=== PATIENT | female | born 1970 | race Caucasian/White ===

== ENCOUNTER 2020-06-21 09:09 | Outpatient (REF) | payer OTHER, SELFPAY ==
[2020-06-21 10:29] LABS: HBS Num1 7.41 mIU/mL (0-7.99); HBc Num1 0.05 S/CO (0.00-0.79); Hepatitis B Core Antibody Nonreactive (Nonreactive); ~Hepatitis B Surface Antibody NONREACTIVE (Nonreactive)
[2020-06-21 10:33] LABS: HBsAGNum1 0.16 S/CO (0.00-0.99); Hepatitis B Surface Antigen Negative (Negative)
[2020-06-22 09:51] LABS: Rubella IgG Antibody 3.76 Index
== END 2020-06-21 09:10 | disposition home or self-care (01) ==
LOC: HO.LAB 09:09
PROVIDERS: PCP Internal Medicine; Visit Provider Internal Medicine
DX: Z28.3 Underimmunization status (principal); Z11.1 Encounter for screening for respiratory tuberculosis
CPT/HCPCS: 36415; 86704; 86706; 86735; 86762; 86765; 86787; 87340

== ENCOUNTER 2020-06-21 09:31 | Outpatient (REF) | payer OTHER, SELFPAY ==
[2020-06-21 10:19] LABS: COVID-19 Test Negative (Negative)
== END 2020-06-21 09:32 | disposition home or self-care (01) ==
LOC: HO.LAB 09:31
PROVIDERS: Visit Provider Internal Medicine
DX: Z20.822 Contact with and (suspected) exposure to COVID-19 (principal)
CPT/HCPCS: 36415; 87635; C9803

== ENCOUNTER 2020-10-10 13:59 | Outpatient (REF) | payer OTHER, SELFPAY ==
[2020-10-10 14:43] LABS: MANUAL DIFF FLAG NO
[2020-10-10 14:50] LABS: Basophils Percent Auto 0.3 % (0-2); Eosinophils Absolute Auto 0.2 X10*3/uL (0.0-0.4); Eosinophils Percent Auto 1.5 % (0-4); Hematocrit 42.2 % (37-47); Hemoglobin 14.3 g/dl (12.0-16.0); Imm Gran Abs Auto 0.04 X10*3/uL (0.00-0.03); Imm Gran Pct Auto 0.3 % (0.0-0.4); Lymphocytes Absolute Auto 2.7 X10*3/uL (1.2-4.9); Lymphocytes Percent Auto 23.3 % (20-40); Mean Corpuscular HGB Conc 33.9 g/dl (31.0-35.0); Mean Corpuscular Hemoglobin 30.8 pg (27.0-33.0); Mean Corpuscular Volume 90.9 fL (80-98); Mean Platelet Volume 10.9 fL (9.4-12.3); Monocytes Absolute Auto 0.7 X10*3/uL (0.1-1.2); Neutrophils Percent Auto 68.6 % (45-73); Platelet Count 328 X10*3/uL (160-400); Red Blood Count 4.64 X10*6/uL (4.20-5.50); White Blood Count 11.7 X10*3/uL (4.8-10.8)
[2020-10-10 15:17] LABS: Iron 76 mcg/dL (30-160); Percent Iron Saturation 21 % (15-50); Total Iron Binding Capacity 366 mcg/dL (228-428); Unsaturated Iron Binding 290 ug/dL
== END 2020-10-10 14:00 | disposition home or self-care (01) ==
LOC: HO.LAB 13:59
PROVIDERS: PCP Internal Medicine; Visit Provider Internal Medicine
DX: D64.9 Anemia, unspecified (principal)
CPT/HCPCS: 36415; 83540; 85025

== ENCOUNTER 2021-02-12 14:15 | Outpatient (REF) | payer OTHER, SELFPAY | END 2021-02-12 14:16 | disposition home or self-care (01) | LOC: HO.LAB 14:15 | PROVIDERS: Visit Provider Internal Medicine | DX: Z13.89 Encounter for screening for other disorder (principal) ==

== ENCOUNTER 2021-06-20 09:53 | Outpatient (REF) | payer OTHER, SELFPAY ==
[2021-06-20 10:15] LABS: MANUAL DIFF FLAG NO
[2021-06-20 10:43] LABS: Basophils Absolute Auto 0.1 X10*3/uL (0.0-0.2); Basophils Percent Auto 0.5 % (0-2); Eosinophils Absolute Auto 0.4 X10*3/uL (0.0-0.4); Hematocrit 42.3 % (37.0-47.0); Hemoglobin 14.2 g/dl (12.0-16.0); Imm Gran Abs Auto 0.03 X10*3/uL (0.00-0.03); Imm Gran Pct Auto 0.3 % (0.0-0.4); Lymphocytes Absolute Auto 2.3 X10*3/uL (1.2-4.9); Lymphocytes Percent Auto 24.2 % (20-40); Mean Corpuscular HGB Conc 33.6 g/dl (31.0-35.0); Mean Corpuscular Hemoglobin 30.6 pg (27.0-33.0); Mean Corpuscular Volume 91.2 fL (80.0-98.0); Mean Platelet Volume 11.7 fL (9.4-12.3); Monocytes Absolute Auto 0.7 X10*3/uL (0.1-1.2); Monocytes Percent Auto 7.8 % (2-11); Neutrophils Percent Auto 63.2 % (45-73); Platelet Count 290 X10*3/uL (160-400); Red Blood Count 4.64 X10*6/uL (4.20-5.50); Red Cell Distribution Width 12.9 % (11.0-16.0); White Blood Count 9.5 X10*3/uL (4.8-10.8)
[2021-06-20 11:07] LABS: Alanine Aminotransferase 59 U/L (0-31); Albumin Level 4.4 g/dL (3.5-5.0); Alkaline Phosphatase 85 U/L (39-117); Anion Gap 11 (12-20); Aspartate Amino Transferase 53 U/L (5-31); Bilirubin Total 0.6 mg/dL (0.0-1.0); Blood Urea Nitrogen 9 mg/dL (9-16); Calcium 9.9 mg/dL (8.4-10.2); Carbon Dioxide 28 mmol/L (22-29); Chloride 107 mmol/L (96-108); Cholesterol 190 mg/dL; Estimated Glomerular Filt Rate > 60; Glucose Fasting 112 mg/dL (60-99); HDL Cholesterol 40 mg/dL; LDL Cholesterol Calculated 102 mg/dl; Potassium 4.1 mmol/L (3.3-5.1); Rheumatoid Factor < 15.0 IU/mL (<15.0); Sodium 142 mmol/L (135-145); Triglycerides 241 mg/dL
[2021-06-20 11:26] LABS: Erythrocyte Sedimentation Rate 5 MM/HR (0-20)
[2021-06-22 18:31] LABS: Cyclic Citrullinated Peptide <16 UNITS
== END 2021-06-20 09:54 | disposition home or self-care (01) ==
LOC: HO.LAB 09:53
PROVIDERS: PCP Internal Medicine; Visit Provider Internal Medicine
DX: Z00.00 Encounter for general adult medical examination without abnormal findings (principal); M25.50 Pain in unspecified joint; J45.20 Mild intermittent asthma, uncomplicated; E55.9 Vitamin D deficiency, unspecified
CPT/HCPCS: 36415; 80053; 80061; 82306; 85025; 85652; 86200; 86431

== ENCOUNTER 2021-06-28 10:11 | Outpatient (REF) | payer OTHER, SELFPAY ==
--- NOTE | ~2021-06-28 | MM_ITS ---
EXAMINATION: MM SCREENING DIGITAL BREAST TOMOSYNTHESIS, BILATERAL CLINICAL INFORMATION: Screening. Asymptomatic. The lifetime risk of breast cancer based on the Tyrer-Cuzick Model is 6.3%. COMPARISON: Mammography: February 28, 2015 and December 03, 2013 TECHNIQUE: Digital breast tomosynthesis is performed in both the craniocaudal and mediolateral oblique views along with computer-aided detection (CAD). Synthesized 2D images are generated from the tomosynthesis. FINDINGS: There are scattered areas of fibroglandular density (ACR BI-RADS breast composition Category b). There are no new significant masses, abnormal calcifications, or other abnormalities. MM/MM tomosynthesis screening BI IMPRESSION: There are no significant changes from prior study. ASSESSMENT: BI-RADS 1: Negative RECOMMENDATION: Routine annual mammography screening. This patient's information was entered into a reminder system with a target due date for their next mammogram.
== END 2021-06-28 10:12 | disposition home or self-care (01) ==
LOC: HO.MAMMO 10:11
PROVIDERS: PCP Internal Medicine; Visit Provider Internal Medicine
DX: Z12.31 Encounter for screening mammogram for malignant neoplasm of breast (principal)
CPT/HCPCS: 77063; 77067

== ENCOUNTER 2021-07-08 10:37 | Emergency (ER) | payer OTHER, SELFPAY ==
--- NOTE | ~2021-07-08 | XR_ITS ---
EXAMINATION: XR CHEST CLINICAL INFORMATION: Congestion COMPARISON: Previous chest x-ray most recent February 2019 TECHNIQUE: 2 views of the chest were obtained. FINDINGS: No significant abnormality is noted involving the heart, lungs, mediastinum, bony thorax or soft tissues. XR/XR chest 2V IMPRESSION: Unremarkable examination.
[2021-07-08 10:50] VITALS: BP 137/88; PULSE 95; RESP 19; TEMP 36.6; O2SAT 95; BMI 26.2
[2021-07-08 15:12] VITALS: BP 166/104; PULSE 87; RESP 18; TEMP 36.9; O2SAT 96
--- NOTE | 2021-07-08 15:57 | ED_ITS ---
HPI - Allergic Reaction General Chief complaint: General Medical Stated complaint: quest allergic reaction lips face swelling Time Seen by Provider: 07/08/21 12:59 Source: patient Mode of arrival: ambulatory Limitations: no limitations History of Present Illness MD complaint: other ( lip swelling) Onset (ago): day(s) ( since last night) Exposure: unknown Symptoms: lip swelling Severity: mild Treatment prior to arrival: none Previous Allergic Reaction History: none Related Data Previous Rx's Medication Instructions Recorded albuterol sulfate 90 mcg/actuation 2 inh INHALATION QID #6.7 g 05/21/21 aerosol inhaler loratadine 10 mg tablet (Allergy 10 mg PO DAILY 90 Days #90 tab 05/21/21 Relief (loratadine)) lorazepam 0.5 mg tablet 0.5 mg PO DAILY PRN 28 Days #28 tab 05/21/21 omeprazole 20 mg capsule,delayed 20 mg PO DAILY 90 Days #90 cap 05/21/21 release cholecalciferol (vitamin D3) 25 25 mcg PO DAILY 90 Days #90 cap 06/26/21 mcg (1,000 unit) capsule diphenhydramine HCl 25 mg tablet 50 mg PO TID PRN #10 tab 07/08/21 (Benadryl Allergy) famotidine 20 mg tablet (Pepcid) 20 mg PO BID #14 tab 07/08/21 prednisone 20 mg tablet 40 mg PO DAILY 5 Days #10 tab 07/08/21 Allergies Allergy/AdvReac Type Severity Reaction Status Date / Time azithromycin [AZITHROMYCIN] Allergy Unknown RASH, LIP Verified 05/21/21 12:35 SWELLING Review of Systems Review of Systems: Constitutional : No Fever, No Chills , no body aches, no recent illness Head/Face: + lower lip swelling, No additional facial swelling, No facial redness ENT/Mouth : No oral/throat swelling, No Hoarseness, No Swallowing Difficulty Eyes: No Eye Pain, No Swelling, No Redness Cardiovascular : No Chest Pain, No SOB, No palpitations Respiratory : No Cough, No Sputum, No Wheezing, No Smoke Exposure, No Dyspnea Gastrointestinal : No Nausea, No Vomiting, No Diarrhea, No abdominal Pain Genitourinary : No Dysuria, No Urinary Frequency, No Hematuria Musculoskeletal : No joint pain, No Myalgias, No Joint Swelling Skin : No Skin Lesions, positive rash Neuro : No Weakness, No Numbness, No Headache, No dizziness, No tingling Psych : No Anxiety/Panic, No Depression Heme/Lymph: No Bruising, No Lymphadenopathy Endocrine : No Polyuria, No Polydipsia Denies changes in lotions or detergents. Denies new medications or any changes in medications. Denies drainage from rash. Denies any recent sick contacts or recent travel. Yes all other systems are reviewed and are negative PMFSH Past Medical History Attestation statement: The following information was validated with the patient. Medical History Chronic GERD Immunizations incomplete Left shoulder pain Lumbar pain Mild intermittent asthma, uncomplicated Physical exam Polyarthralgia Right shoulder pain Surgical History History of hysterectomy Family History Family History Mother No problems noted. Father No problems noted. Social History Social History Housing: House Alcohol intake: current Alcohol intake frequency: holidays/special occasions only Alcohol type: beer Patient Tobacco Use Status: Current everyday Tobacco user Tobacco use type: Cigarette Cigarettes Per Day: 3 e-Cigarette/Vaping Use: Never Used Second Hand Smoke Exposure: No Advance Directives: No Advance Directives Information Provided: No service: No Current occupational status: employed Current occupational exposures/hazards: No Physical Exam ED Vital Signs: Vital Signs - 24 hr 07/08/21 10:50 07/08/21 15:12 Temperature 98 F 98.4 F Pulse Rate 95 87 Respiratory Rate 19 18 Blood Pressure 137/88 166/104 H Pulse Oximetry 95 96 BMI result Body Mass Index 26.2 vital signs have been reviewed as normal and appeared to be correct. Blood pressure 166/104. Heart rate normal. Respiration rate normal. Temperature normal. Oxygen saturation normal. Appearance: Alert. Oriented X3. No acute distress. Head: Normal external exam. Normocephalic. Atraumatic. Eyes: PERRLA. EOMI. Conjunctiva and sclera normal. Eyelids normal. ENT: Pharynx normal. Uvula midline. Moist mucous membranes. No lesions/ulcerations or masses noted on the tongue. Although patient does have swelling to the lower lip and she does appear to have a dried rash to the lower lip no actual pustules at this time or drainage or foreign bodies. Stensen's and [place]le[place]'s ducts are within normal limits Normal voice. No trismus noted. No drooling noted. No muffled voice noted. Neck: Normal inspection. Neck supple. FROM. + mandibular adenopathy. Thyroid Normal. No tracheal deviation noted. No crepitus is noted. No meningeal sig ns. No neck mass noted. No signs of trauma noted. CVS: Normal heart rate and rhythm. Heart sound normal. Pulses normal throughout. No murmurs/rales/gallops. Respiratory: No respiratory distress. Painless inspiration. Breath sounds normal. No wheezes/rales/rhonchi noted. Chest nontender. No crepitus is noted. No signs of trauma noted. No accessory muscle usage noted or decreased air movement noted. No signs of trauma. Back: Full range of motion noted. Nontender. Skin: Skin warm and dry. Normal skin color. Normal skin turgor. No rashes/lesions/lacerations noted. Extremities:Extremities exhibit normal range of motion and nontender. Neuro: Oriented X 3. No motor deficit. No sensory deficit. Reflexes normal. Normal steady gait. No focal neuro deficits noted. CN's II-XII intact bilaterally? Vascular: + radial pulses/+ 2 distal pedal pulses/+2 dorsalis pedis b/l. Normal cap refill. No cyanosis noted to upper extremity nails and lower extremity toes nails. Course Course Course Narrative: 50-year-old female with lip swelling since last night with mandibular/cervical lymphadenopathy reports that she was diagnosed with COVID approximately 1 week ago. Denies any new substances medications diets foods anything that she can recall including lotions detergents. she denies any recent oral intercourse any thoughts of STDs. Although on exam it appears that she has a rash possibly oral herpes although patient does not agree with this therefore I swabbed her and will treat for possible allergic reaction / angioedema although I explained to her that it could possibly be herpes she does not want to treatment after I ordered it therefore we will call her in a week if positive results I explained to her if negative then she can take the steroids in the Benadryl and the Pepcid and instructions return if any new or worsening symptoms to follow up with primary care provider although no additional labs or imaging indicated as her vital signs are stable no trismus/ drooling she is tolerating secretions well. No other signs of angioedema. No wheezing. No abdominal pain or cramping. Patient understands agrees with this plan. MDM - Allergic Reaction Medical Records Attestation: I reviewed the patient's medical records. Lab Data Attestation: I reviewed the patient's lab results. Discharge Plan Discharge Clinical Impression: Lip swelling, Rash on lips Patient Disposition: Home, Self-Care Additional Instructions: You have pending lab results if any are positive you will be contacted within a week. Return if any new or worsening symptoms. Follow up with her primary care provider. Prescriptions: New prednisone 20 mg tablet 40 mg PO DAILY 5 Days Qty: 10 0RF diphenhydramine HCl [Benadryl Allergy] 25 mg tablet 50 mg PO TID PRN (Reason: allergic reaction) Qty: 10 0RF famotidine [Pepcid] 20 mg tablet 20 mg PO BID Qty: 14 0RF No Action loratadine [Allergy Relief (loratadine)] 10 mg tablet 10 mg PO DAILY 90 Days Qty: 90 1RF cholecalciferol (vitamin D3) 25 mcg (1,000 unit) capsule 25 mcg PO DAILY 90 Days Qty: 90 1RF albuterol sulfate 90 mcg/actuation HFA aerosol inhaler 2 inh inhalation QID Qty: 6.7 1RF lorazepam 0.5 mg tablet 0.5 mg PO DAILY PRN (Reason: anxiety) 28 Days Qty: 28 0RF omeprazole 20 mg capsule,delayed release(DR/EC) 20 mg PO DAILY 90 Days Qty: 90 3RF Referrals: Rebeca Houston MD [Primary Care Provider] - 2 days
[2021-07-08] MEDS: predniSONE 20 MG TABLET 40 MG PO (16:07)
== END 2021-07-08 16:34 | disposition home or self-care (01) ==
LOC: HO.ED 16:17
PROVIDERS: Physician Assistant Medical; Emergency Provider Emergency Medicine; PCP Internal Medicine
DX: B00.1 Herpesviral vesicular dermatitis (principal); F17.210 Nicotine dependence, cigarettes, uncomplicated
CPT/HCPCS: 36415; 71046; 87255; 87651; 96361; 96374; 96375; 99281; 99284

== ENCOUNTER 2021-07-12 12:46 | Outpatient (REF) | payer OTHER, SELFPAY ==
[2021-07-12 14:53] LABS: Appearance Urine CLOUDY; Color Urine YELLOW; Glucose Urine UA NEG (NEG); Leukocyte Esterase Urine 3+ (NEG); Nitrite Urine POS (NEG); Specific Gravity - Urine 1.015 (1.005-1.025); UACC Culture Trigger YES; Urine Blood 3+ (NEG); Urine Ketones NEG (NEG); Urine Protein 2+ MG/DL (NEG-TRACE)
[2021-07-12 15:26] LABS: WBC Urine TNTC /HPF (0-4)
[2021-07-12 15:27] LABS: Bacteria Urine 1+ /LPF; Squamous Epithelial Cell Urine 1+ /LPF
== END 2021-07-12 12:47 | disposition home or self-care (01) ==
LOC: HO.LAB 12:46
PROVIDERS: PCP Internal Medicine; Visit Provider Physician Assistant
DX: R30.0 Dysuria (principal)
CPT/HCPCS: 81001; 87086; 87088; 87186

== ENCOUNTER → 2021-07-31 09:21 | Outpatient (BNVA) | payer OTHER, SELFPAY | PROVIDERS: PCP Internal Medicine; Referring Provider Internal Medicine; Visit Provider Nurse Practitioner Family | DX: K21.9 Gastro-esophageal reflux disease without esophagitis (principal); K58.2 Mixed irritable bowel syndrome; R14.0 Abdominal distension (gaseous); R74.01 Elevation of levels of liver transaminase levels | CPT/HCPCS: 99202 ==

== ENCOUNTER 2021-08-02 10:57 | Outpatient (REF) | payer OTHER, SELFPAY ==
[2021-08-02 12:19] LABS: Amylase 59 U/L (28-100)
[2021-08-02 12:22] LABS: C Reactive Protein 2.42 mg/dL (< or = 0.50); Lipase 31 U/L (8-78)
[2021-08-02 12:43] LABS: Ferritin 218 ng/mL (10-250); TSH reflex Free T4 0.72 uIU/mL (0.32-4.0)
[2021-08-02 13:03] LABS: Folate 13.1 ng/mL (> or = 4.0); Vitamin B12 514 pg/mL (200-900)
[2021-08-03 08:02] LABS: HBS Num1 74.41 mIU/mL (0-7.99); HBc Num1 0.07 S/CO (0.00-0.79); HBsAGNum1 0.25 S/CO (0.00-0.99); Hepatitis A Antibody IgM 0.16 Index (0-0.79); Hepatitis B Core Antibody Nonreactive (Nonreactive); Hepatitis B Surface Antigen Negative (Negative); ~HepC Num1 0.09 S/CO (0.00-0.79); ~Hepatitis A Antibody IgM Nonreactive (Nonreactive); ~Hepatitis B Surface Antibody REACTIVE (Nonreactive); ~Hepatitis C Antibody Nonreactive (Nonreactive)
[2021-08-06 11:47] LABS: Ceruloplasmin 36 mg/dL (18-53)
[2021-08-06 12:26] LABS: Alpha Fetoprotein 3.3 ng/mL
[2021-08-07 15:56] LABS: Mitochondrial Antibodies NEGATIVE (NEGATIVE)
[2021-08-08 00:12] LABS: Smooth Muscle Antibody <20 U (<20)
[2021-08-09 09:06] LABS: Transglutaminase Ab IgG <1.0 U/mL; Transglutaminase IgA <1.0 U/mL
== END 2021-08-02 10:58 | disposition home or self-care (01) ==
LOC: HO.LAB 10:57
PROVIDERS: PCP Internal Medicine; Visit Provider Nurse Practitioner Family
DX: R10.9 Unspecified abdominal pain (principal); R79.89 Other specified abnormal findings of blood chemistry; R74.8 Abnormal levels of other serum enzymes; R19.7 Diarrhea, unspecified; K21.9 Gastro-esophageal reflux disease without esophagitis; K58.9 Irritable bowel syndrome, unspecified
CPT/HCPCS: 36415; 82105; 82150; 82390; 82607; 82728; 82746; 83690; 84443; 86015; 86140; 86255; 86256; 86364; 86704; 86706; 86709; 86803; 87340

== ENCOUNTER 2021-08-02 12:29 | Outpatient (REF) | payer OTHER, SELFPAY ==
[2021-08-02 12:59] LABS: COVID-19 Test Negative (Negative)
== END 2021-08-02 12:30 | disposition home or self-care (01) ==
LOC: HO.LAB 12:29
PROVIDERS: Visit Provider Internal Medicine
DX: Z20.822 Contact with and (suspected) exposure to COVID-19 (principal)
CPT/HCPCS: 87635; C9803

== ENCOUNTER 2021-10-22 08:50 | Outpatient (REF) | payer OTHER, SELFPAY ==
[2021-10-22 09:21] LABS: COVID-19 Test Negative (Negative); IDNOW Serial# 9DD0AD1C
== END 2021-10-22 08:51 | disposition home or self-care (01) ==
LOC: HO.LAB 08:50
PROVIDERS: Visit Provider Internal Medicine
DX: Z20.822 Contact with and (suspected) exposure to COVID-19 (principal)
CPT/HCPCS: 87635; C9803

== ENCOUNTER 2021-10-24 12:24 | Outpatient (REF) | payer OTHER, SELFPAY ==
--- NOTE | ~2021-10-24 | XR_ITS ---
EXAMINATION: XR SHOULDER, BILATERAL XR LUMBAR SPINE CLINICAL INFORMATION: Pain. COMPARISON: Shoulder of 02/13/2019. TECHNIQUE: 4 views of each shoulder, 3-view lumbar spine. FINDINGS: Views of the left shoulder do not demonstrate any evidence of acute fracture or dislocation. Glenohumeral joint appears unremarkable. No evidence of calcific tendinitis. There is a 7 mm sclerotic lesion seen within the humeral head which is noted to have been present on previous chest x-ray of 03/17/2019 and humeral x-ray of 11/18/2016. There is also a stable 1.7 cm sclerotic lesion seen within the glenoid. This too was present on prior chest x-ray of 03/17/2019. Acromioclavicular joint unremarkable. No widening of the coracoclavicular space is seen. No cortical destruction is seen and no periosteal new bone formation is noted. No low-density nidus is appreciated. Four views of the right shoulder do not demonstrate any evidence of acute fracture or dislocation. No calcific tendinitis. Mild degenerative spurring about the acromioclavicular joint is seen. No widening of the coracoclavicular space is seen. No destructive bony lesions identified. Three views of the lumbar spine demonstrate 5 nonrib-bearing lumbar vertebrae. No acute fracture, spondylolisthesis, or spondylolysis is identified. Sacroiliac joints appear unremarkable. Disc spaces are maintained. Pedicles are intact. Psoas margins are intact. XR/XR lumbar spine 2-3V IMPRESSION: No significant acute abnormality of the shoulders identified. Stable sclerotic lesions seen involving the left glenoid and proximal left humerus. No significant bony abnormality of the lumbar spine identified.
--- NOTE | ~2021-10-24 | XR_ITS ---
EXAMINATION: XR SHOULDER, BILATERAL XR LUMBAR SPINE CLINICAL INFORMATION: Pain. COMPARISON: Shoulder of 02/13/2019. TECHNIQUE: 4 views of each shoulder, 3-view lumbar spine. FINDINGS: Views of the left shoulder do not demonstrate any evidence of acute fracture or dislocation. Glenohumeral joint appears unremarkable. No evidence of calcific tendinitis. There is a 7 mm sclerotic lesion seen within the humeral head which is noted to have been present on previous chest x-ray of 03/17/2019 and humeral x-ray of 11/18/2016. There is also a stable 1.7 cm sclerotic lesion seen within the glenoid. This too was present on prior chest x-ray of 03/17/2019. Acromioclavicular joint unremarkable. No widening of the coracoclavicular space is seen. No cortical destruction is seen and no periosteal new bone formation is noted. No low-density nidus is appreciated. Four views of the right shoulder do not demonstrate any evidence of acute fracture or dislocation. No calcific tendinitis. Mild degenerative spurring about the acromioclavicular joint is seen. No widening of the coracoclavicular space is seen. No destructive bony lesions identified. Three views of the lumbar spine demonstrate 5 nonrib-bearing lumbar vertebrae. No acute fracture, spondylolisthesis, or spondylolysis is identified. Sacroiliac joints appear unremarkable. Disc spaces are maintained. Pedicles are intact. Psoas margins are intact. XR/XR shoulder LT min 2V IMPRESSION: No significant acute abnormality of the shoulders identified. Stable sclerotic lesions seen involving the left glenoid and proximal left humerus. No significant bony abnormality of the lumbar spine identified.
--- NOTE | ~2021-10-24 | XR_ITS ---
EXAMINATION: XR SHOULDER, BILATERAL XR LUMBAR SPINE CLINICAL INFORMATION: Pain. COMPARISON: Shoulder of 02/13/2019. TECHNIQUE: 4 views of each shoulder, 3-view lumbar spine. FINDINGS: Views of the left shoulder do not demonstrate any evidence of acute fracture or dislocation. Glenohumeral joint appears unremarkable. No evidence of calcific tendinitis. There is a 7 mm sclerotic lesion seen within the humeral head which is noted to have been present on previous chest x-ray of 03/17/2019 and humeral x-ray of 11/18/2016. There is also a stable 1.7 cm sclerotic lesion seen within the glenoid. This too was present on prior chest x-ray of 03/17/2019. Acromioclavicular joint unremarkable. No widening of the coracoclavicular space is seen. No cortical destruction is seen and no periosteal new bone formation is noted. No low-density nidus is appreciated. Four views of the right shoulder do not demonstrate any evidence of acute fracture or dislocation. No calcific tendinitis. Mild degenerative spurring about the acromioclavicular joint is seen. No widening of the coracoclavicular space is seen. No destructive bony lesions identified. Three views of the lumbar spine demonstrate 5 nonrib-bearing lumbar vertebrae. No acute fracture, spondylolisthesis, or spondylolysis is identified. Sacroiliac joints appear unremarkable. Disc spaces are maintained. Pedicles are intact. Psoas margins are intact. XR/XR shoulder RT min 2V IMPRESSION: No significant acute abnormality of the shoulders identified. Stable sclerotic lesions seen involving the left glenoid and proximal left humerus. No significant bony abnormality of the lumbar spine identified.
== END 2021-10-24 12:25 | disposition home or self-care (01) ==
LOC: HO.XRAY 12:24
PROVIDERS: PCP Internal Medicine; Visit Provider Internal Medicine
DX: M25.512 Pain in left shoulder (principal); M25.511 Pain in right shoulder; M54.50 Low back pain, unspecified
CPT/HCPCS: 72100; 73030

== ENCOUNTER 2021-11-09 11:34 | Outpatient (REF) | payer OTHER, SELFPAY ==
[2021-11-09 12:34] LABS: Alanine Aminotransferase 56 U/L (0-31); Albumin Level 4.6 g/dL (3.5-5.0); Alkaline Phosphatase 83 U/L (39-117); Aspartate Amino Transferase 47 U/L (5-31); Bilirubin Direct 0.2 mg/dL (0.0-0.5); Bilirubin Total 0.4 mg/dL (0.0-1.0); Total Protein 7.4 g/dL (6.5-8.0)
== END 2021-11-09 11:35 | disposition home or self-care (01) ==
LOC: HO.LAB 11:34
PROVIDERS: PCP Internal Medicine; Visit Provider Nurse Practitioner Family
DX: R10.11 Right upper quadrant pain (principal); K59.01 Slow transit constipation; K21.9 Gastro-esophageal reflux disease without esophagitis; R74.01 Elevation of levels of liver transaminase levels; K58.1 Irritable bowel syndrome with constipation
CPT/HCPCS: 36415; 80076; 99212

== ENCOUNTER 2021-12-07 10:47 | Outpatient (REF) | payer OTHER, SELFPAY ==
--- NOTE | ~2021-12-07 | US_ITS ---
EXAMINATION: US ABDOMEN COMPLETE CLINICAL INFORMATION: Unspecified abdominal pain. COMPARISON: None TECHNIQUE: Real-time imaging of the abdominal viscera. FINDINGS: PANCREAS: Normal. ABDOMINAL AORTA: The proximal, mid, and distal segments are normal in caliber. INFERIOR VENA CAVA: Visualized portions are normal. LIVER: The liver is normal in size. The liver contour is normal. The liver is diffusely echogenic with areas of focal fatty sparing around the gallbladder. No focal solid hepatic lesion. There is no intrahepatic biliary duct dilatation seen. GALLBLADDER: The gallbladder is contracted. COMMON BILE DUCT: Normal in caliber measuring 0.4 cm in diameter. RIGHT KIDNEY: Normal. No hydronephrosis. No renal calculi or focal parenchymal lesions. The kidney measures 10.4 cm in maximum dimension. LEFT KIDNEY: Normal. No hydronephrosis. No renal calculi or focal parenchymal lesions. The kidney measures 10.2 cm in maximum dimension. SPLEEN: The spleen measures 6.9 cm in maximum dimension. FREE FLUID: None. US/US abdomen complete IMPRESSION: Diffusely echogenic liver with areas of focal fatty sparing. Contracted gallbladder. The rest of the abdominal ultrasound is unremarkable.
== END 2021-12-07 10:48 | disposition home or self-care (01) ==
LOC: HO.US 10:47
PROVIDERS: Visit Provider Nurse Practitioner Family
DX: R10.11 Right upper quadrant pain (principal)
CPT/HCPCS: 76700

== ENCOUNTER 2021-12-24 14:00 | Outpatient (REF) | payer OTHER, SELFPAY ==
[2021-12-24 14:36] LABS: COVID-19 Test Negative (Negative); IDNOW Serial# 16C4AD1C
== END 2021-12-24 14:01 | disposition home or self-care (01) ==
LOC: HO.LAB 14:00
PROVIDERS: Visit Provider Internal Medicine
DX: Z20.822 Contact with and (suspected) exposure to COVID-19 (principal)
CPT/HCPCS: 87635; C9803

== ENCOUNTER 2021-12-25 13:36 | Outpatient (REF) | payer OTHER, SELFPAY ==
[2021-12-25 15:09] LABS: Appearance Urine Cloudy; Color Urine Yellow; Glucose Urine UA Negative (Negative); Leukocyte Esterase Urine Trace (Negative); Nitrite Urine Negative (Negative); PH 7.5 (5.0-9.0); UMIC TRIGGER UA YES; Urine Blood Negative (Negative); Urine Ketones Negative (Negative); Urine Protein Trace mg/dL (Neg-Trace)
[2021-12-25 15:29] LABS: Bacteria Urine 2+ (None Seen); Hyaline Casts Urine 0-2 /LPF (0-2); RBC Urine 0-2 /HPF (0-2); Squamous Epithelial Cell Urine >20 /HPF (0-2)
== END 2021-12-25 13:37 | disposition home or self-care (01) ==
LOC: HO.LAB 13:36
PROVIDERS: PCP Internal Medicine; Visit Provider Internal Medicine
DX: N39.0 Urinary tract infection, site not specified (principal)
CPT/HCPCS: 81001

== ENCOUNTER → 2021-12-27 13:50 | Outpatient (BNVA) | payer OTHER, SELFPAY | PROVIDERS: PCP Internal Medicine; Visit Provider Physician Assistant Medical | DX: M54.16 Radiculopathy, lumbar region (principal) | CPT/HCPCS: 99203 ==

== ENCOUNTER → 2021-12-31 07:43 | Outpatient (BNVA) | payer OTHER, SELFPAY | PROVIDERS: PCP Internal Medicine; Visit Provider Physician Assistant Medical | DX: M54.50 Low back pain, unspecified (principal) | CPT/HCPCS: 99213 ==

== ENCOUNTER 2022-05-12 15:29 | Emergency (ER) | payer OTHER, SELFPAY ==
--- NOTE | ~2022-05-12 | XR_ITS ---
EXAMINATION: XR CHEST CLINICAL INFORMATION: Shortness of breath, cough. COMPARISON: 07/08/2021 chest radiographs. TECHNIQUE: 2 views of the chest were obtained. FINDINGS: No significant abnormality is noted involving the heart, lungs, mediastinum, bony thorax or soft tissues. XR/XR chest 2V IMPRESSION: No acute cardiopulmonary process.
--- NOTE | 2022-05-12 15:33 | ECG_ITS ---
Test Reason : CX TIGHTNESS Blood Pressure : / mmHG Vent. Rate : 091 BPM Atrial Rate : 091 BPM P-R Int : 136 ms QRS Dur : 070 ms QT Int : 380 ms P-R-T Axes : 055 035 025 degrees QTc Int : 467 ms Sinus rhythm with Premature atrial complexes with Aberrant conduction Otherwise normal ECG When compared with ECG of 13-MAY-2010 16:32, Aberrant conduction is now Present Referred By: Generic ED Physician Electronically Signed By:Harjinder Cervantes
[2022-05-12 15:55] VITALS: BP 135/106; PULSE 97; RESP 20; TEMP 37; O2SAT 98; BMI 25.7
[2022-05-12 16:18] LABS: MANUAL DIFF FLAG NO
[2022-05-12 16:19] LABS: Basophils Percent Auto 0.3 % (0-2); Eosinophils Absolute Auto 0.1 X10*3/uL (0.0-0.4); Hematocrit 40.6 % (37.0-47.0); Imm Gran Abs Auto 0.05 X10*3/uL (0.00-0.03); Imm Gran Pct Auto 0.4 % (0.0-0.4); Lymphocytes Absolute Auto 2.8 X10*3/uL (1.2-4.9); Lymphocytes Percent Auto 20.9 % (20-40); Mean Corpuscular HGB Conc 34.5 g/dl (31.0-35.0); Mean Corpuscular Hemoglobin 30.8 pg (27.0-33.0); Mean Corpuscular Volume 89.2 fL (80.0-98.0); Mean Platelet Volume 11.1 fL (9.4-12.3); Monocytes Percent Auto 7.4 % (2-11); Neutrophils Absolute Auto 9.2 x10*3/uL (2.0-8.3); Platelet Count 270 X10*3/uL (160-400); Red Blood Count 4.55 X10*6/uL (4.20-5.50); Red Cell Distribution Width 13.2 % (11.0-16.0); White Blood Count 13.2 X10*3/uL (4.8-10.8)
--- NOTE | 2022-05-12 16:23 | ED_ITS ---
HPI - General Adult General Chief complaint: Dyspnea Stated complaint: Chest pain, diff breathing Time Seen by Provider: 05/12/22 16:07 Source: patient, RN notes reviewed and old records reviewed Mode of arrival: ambulatory Limitations: no limitations History of Present Illness HPI narrative: 51-year-old female with past medical history significant for asthma, anxiety on patient reports her symptoms started 3 nights ago. She reports congestion, cough, chest tightness and congestion. She states that she had some albuterol inhalers at home with open with minimal relief She states that she had some prednisone left over from a previous prescription which she took on , Friday and yesterday but not today She denies any fevers, chills. Denies any history of cardiac disease And patient rates her discomfort as 7/10, aching Her pain is worse with taking a deep breath Denies any recent The patient tested herself for COVID-19 3 times in the last few days and was negative each time most recently today Related Data Previous Rx's Medication Instructions Recorded loratadine 10 mg tablet (Allergy 10 mg PO DAILY 90 days #90 tabs 05/21/21 Relief (loratadine)) lorazepam 0.5 mg tablet 0.5 mg PO DAILY PRN anxiety 28 05/21/21 days #28 tabs omeprazole 20 mg capsule,delayed 20 mg PO DAILY 90 days #90 caps 05/21/21 release sennosides 8.6 mg tablet (Natural 8.6 mg PO BEDTIME constipation #90 07/31/21 Senna Laxative) tabs albuterol sulfate 90 mcg/actuation 2 inh inhalation QID shortness of 10/15/21 aerosol inhaler breath or wheezing #6.7 grams cholecalciferol (vitamin D3) 25 25 mcg PO DAILY 90 days #90 caps 10/15/21 mcg (1,000 unit) capsule naproxen 500 mg tablet 500 mg PO BID PRN pain 90 days 10/24/21 #180 tabs methylcellulose (laxative) 500 mg 500 mg PO DAILY #30 tabs 11/09/21 tablet (Citrucel) sulfamethoxazole 800 1 tab PO BID 3 days #6 tabs 12/28/21 mg-trimethoprim 160 mg tablet (Bactrim DS) doxycycline monohydrate 100 mg 100 mg PO BID #14 caps 05/12/22 capsule prednisone 20 mg tablet 40 mg PO DAILY #4 tabs 05/12/22 Allergies Allergy/AdvReac Type Severity Reaction Status Date / Time azithromycin [AZITHROMYCIN] Allergy Unknown RASH, LIP Verified 11/09/21 10:56 SWELLING Review of Systems Constitutional: Constitutional: Reports as per HPI, Denies chills, Denies fever(s) and Denies headache(s) ENT: Denies headache(s) Cardiovascular: Cardiovascular: Reports dyspnea Respiratory: Respiratory: Reports chest congestion, Reports cough, Reports pain with cough, Reports dyspnea and Reports wheezing Gastrointestinal: Gastrointestinal: Denies abdominal pain, Denies constipation and Denies vomiting Genitourinary: Genitourinary: Denies dysuria Neurologic: Denies headache(s) and Denies focal weakness Allergic/Immunologic: Allergic/Immunologic: Reports wheezing PMFSH Past Medical History Medical History Chronic GERD Immunizations incomplete Left shoulder pain Lumbar pain Mild intermittent asthma, uncomplicated Physical exam Polyarthralgia Right shoulder pain Transaminitis Surgical History History of hysterectomy Family History Family History Mother No problems noted. Father No problems noted. Social History Social History Housing: House Alcohol intake: current Alcohol intake frequency: holidays/special occasions only Alcohol type: beer Patient Tobacco Use Status: Current everyday Tobacco user Tobacco use type: Cigarette Cigarettes Per Day: 3 e-Cigarette/Vaping Use: Never Used Second Hand Smoke Exposure: No Advance Directives: No Advance Directives Information Provided: No service: No Current occupational status: employed Current occupational exposures/hazards: No Physical Exam ED Vital Signs: Vital Signs - 24 hr 05/12/22 15:55 05/12/22 16:48 Temperature 98.6 F Pulse Rate 97 84 Respiratory Rate 20 20 Blood Pressure 135/106 H Pulse Oximetry 98 Oxygen Delivery Method Room Air BMI result Body Mass Index 25.7 Const General: healthy appearing, comfortable, no acute distress, alert and awake Nutritional Appearance: well nourished Orientation/consciousness: patient oriented x3 HENMT Head: Yes normocephalic and Yes atraumatic Throat: Yes posterior oropharynx normal Eyes Eyelids: Yes eyelids normal Conjunctivae: conjunctivae normal Sclerae: sclerae normal Corneas: corneas normal EOM: EOMs intact bilaterally Neck Neck: Yes full ROM Resp Other: Bibasilar rhonchi with faint expiratory wheeze Effort & Inspection: normal respiratory effort and able to speak in complete sentences Auscultation: not clear to auscultation bilaterally Cardio Rate: regular rate Rhythm: regular rhythm GI Inspection: No distended Palpation (GI): Soft to palpation, not firm, nontender, no guarding and not rigid Auscultation: normoactive bowel sounds Skin General skin exam: no rashes or lesions noted and elasticity normal Neuro General: patient oriented x3 Cranial nerves: Yes Bilaterally intact EOM present Cognition (Neuro): normal cognition Extrem Other: Moving all extremities well without any obvious deformities Course Reevaluation(s) Reevaluation #1: Patient reports feeling better after breathing treatment. On re-examination she still has diffuse wheezes though improved from initial exam. The patient's magnesium and potassium were replaced. We will trial ambulation with O2 sat to see the patient is stable for discharge. The patient has an allergy to azithromycin, will cover her with doxycycline Time: 19:45 Medications Administered Discontinued Medications Generic Name Dose Route Start Last Admin Trade Name Freq PRN Reason Stop Dose Admin Albuterol Sulfate 10 mg/ 0 mg 05/12/22 16:20 05/12/22 16:46 Ipratropium [place] 0.5 mg INHALE 05/12/22 16:21 10 each ONCE ONE Administration Magnesium Sulfate 2 gm in 50 mls @ 25 mls/hr 05/12/22 16:49 05/12/22 19:46 Magnesium Sulfate/H2o IV 05/12/22 18:48 Infused ONCE ONE Infusion Potassium Chloride 40 meq 05/12/22 16:49 05/12/22 17:33 Potassium Chloride Er 20 Meq Tab.Er.Prt PO 05/12/22 16:50 40 meq ONCE ONE Administration Medical Decision Making Medical Decision Making [facility] Narrative: 51-year-old female presenting for evaluation of reports of breath. She has a history of asthma. She has upper respiratory/viral symptoms with congestion, cough. Her vital signs are stable. We will get a chest x-ray, get labs, given that she is complaining of chest discomfort we will get an EKG as well but I doubt ACS time. Labs are pending. We will treat the patient with a DuoNeb. The patient declines further steroid stated she took them for last 3 days and ?I do not like the way they make me feel. She is not in respiratory distress, so I do not feel that it is an absolute necessity to administer steroids at this time. Differential Diagnosis Acute asthma exacerbation Upper respiratory infection Bronchitis Pneumonia Lab Data 05/12/22 16:11 05/12/22 16:11 Labs: Lab Results 05/12/22 05/12/22 05/12/22 Range/Units 16:11 16:11 16:11 WBC 13.2 H (4.8-10.8) X10*3/uL RBC 4.55 (4.20-5.50) X10*6/uL Hgb 14.0 (12.0-16.0) g/dl Hct 40.6 (37.0-47.0) % MCV 89.2 (80.0-98.0) fL MCH 30.8 (27.0-33.0) pg MCHC 34.5 (31.0-35.0) g/dl RDW 13.2 (11.0-16.0) % Plt Count 270 (160-400) X10*3/uL MPV 11.1 (9.4-12.3) fL Immature Gran % (Auto) 0.4 (0.0-0.4) % Neut % (Auto) 70.0 (45-73) % Lymph % (Auto) 20.9 (20-40) % [place] % (Auto) 7.4 (2-11) % Eos % (Auto) 1.0 (0-4) % Baso % (Auto) 0.3 (0-2) % Lymph # (Auto) 2.8 (1.2-4.9) X10*3/uL [place] # (Auto) 1.0 (0.1-1.2) X10*3/uL Eos # (Auto) 0.1 (0.0-0.4) X10*3/uL Baso # (Auto) 0.0 (0.0-0.2) X10*3/uL Abs Immat Gran (auto) 0.05 H (0.00-0.03) X10*3/uL Absolute Neuts (auto) 9.2 H (2.0-8.3) x10*3/uL Absolute Nucleated RBC 0.000 (0.0-0.012) X10*3/uL Nucleated RBC % (auto) 0.0 (0.0-0.2) /100WBC Sodium 144 (135-145) mmol/L Potassium 3.2 L D (3.3-5.1) mmol/L Chloride 105 (96-108) mmol/L Carbon Dioxide 25 (22-29) mmol/L Anion Gap 17 (12-20) BUN 7 L (9-16) mg/dL Creatinine 0.72 (0.5-1.4) mg/dL Estim Creat Clear Calc 82.4 Estimated GFR > 60 Random Glucose 82 (60-115) mg/dL Calcium 9.5 (8.4-10.2) mg/dL Magnesium 1.4 L* (1.6-2.6) mg/dL Total Bilirubin 0.3 (0.0-1.0) mg/dL AST 67 H (5-31) U/L ALT 77 H (0-31) U/L Alkaline Phosphatase 81 (39-117) U/L Troponin I High Sens < 3.5 (<3.5-17.0) ng/L Total Protein 6.9 (6.5-8.0) g/dL Albumin 4.4 (3.5-5.0) g/dL COVID-19 (JINNY) (Negative) COVID-19 Clin Com 05/12/22 Range/Units 16:11 WBC (4.8-10.8) X10*3/uL RBC (4.20-5.50) X10*6/uL Hgb (12.0-16.0) g/dl Hct (37.0-47.0) % MCV (80.0-98.0) fL MCH (27.0-33.0) pg MCHC (31.0-35.0) g/dl RDW (11.0-16.0) % Plt Count (160-400) X10*3/uL MPV (9.4-12.3) fL Immature Gran % (Auto) (0.0-0.4) % Neut % (Auto) (45-73) % Lymph % (Auto) (20-40) % [place] % (Auto) (2-11) % Eos % (Auto) (0-4) % Baso % (Auto) (0-2) % Lymph # (Auto) (1.2-4.9) X10*3/uL [place] # (Auto) (0.1-1.2) X10*3/uL Eos # (Auto) (0.0-0.4) X10*3/uL Baso # (Auto) (0.0-0.2) X10*3/uL Abs Immat Gran (auto) (0.00-0.03) X10*3/uL Absolute Neuts (auto) (2.0-8.3) x10*3/uL Absolute Nucleated RBC (0.0-0.012) X10*3/uL Nucleated RBC % (auto) (0.0-0.2) /100WBC Sodium (135-145) mmol/L Potassium (3.3-5.1) mmol/L Chloride (96-108) mmol/L Carbon Dioxide (22-29) mmol/L Anion Gap (12-20) BUN (9-16) mg/dL Creatinine (0.5-1.4) mg/dL Estim Creat Clear Calc Estimated GFR Random Glucose (60-115) mg/dL Calcium (8.4-10.2) mg/dL Magnesium (1.6-2.6) mg/dL Total Bilirubin (0.0-1.0) mg/dL AST (5-31) U/L ALT (0-31) U/L Alkaline Phosphatase (39-117) U/L Troponin I High Sens (<3.5-17.0) ng/L Total Protein (6.5-8.0) g/dL Albumin (3.5-5.0) g/dL COVID-19 (JINNY) Negative (Negative) COVID-19 Clin Com See Note Discharge Plan Discharge Clinical Impression: Acute asthma exacerbation Patient Disposition: Home, Self-Care Instructions: Asthma (ED) Additional Instructions: Continue using your albuterol inhaler as needed You should continue taking prednisone for an additional 2 days Ago doxycycline twice daily for 7 days Prescriptions: New prednisone 20 mg tablet 40 mg PO DAILY Qty: 4 0RF doxycycline monohydrate 100 mg capsule 100 mg PO BID Qty: 14 0RF No Action loratadine [Allergy Relief (loratadine)] 10 mg tablet 10 mg PO DAILY 90 Days Qty: 90 1RF naproxen 500 mg tablet 500 mg PO BID PRN (Reason: pain) 90 Days Qty: 180 1RF sulfamethoxazole-trimethoprim [Bactrim DS] 800-160 mg tablet 1 tab PO BID 3 Days Qty: 6 0RF lorazepam 0.5 mg tablet 0.5 mg PO DAILY PRN (Reason: anxiety) 28 Days Qty: 28 0RF omeprazole 20 mg capsule,delayed release(DR/EC) 20 mg PO DAILY 90 Days Qty: 90 3RF cholecalciferol (vitamin D3) 25 mcg (1,000 unit) capsule 25 mcg PO DAILY 90 Days Qty: 90 1RF albuterol sulfate 90 mcg/actuation HFA aerosol inhaler 2 inh inhalation QID Qty: 6.7 1RF sennosides [Natural Senna Laxative] 8.6 mg tablet 8.6 mg PO BEDTIME Qty: 90 3RF Citrucel 500 mg tablet 500 mg PO DAILY Qty: 30 2RF
[2022-05-12 16:34] LABS: COVID-19 Test Negative (Negative); IDNOW Serial# 55D5AD1C
[2022-05-12 16:45] LABS: Alanine Aminotransferase 77 U/L (0-31); Albumin Level 4.4 g/dL (3.5-5.0); Alkaline Phosphatase 81 U/L (39-117); Anion Gap 17 (12-20); Aspartate Amino Transferase 67 U/L (5-31); Bilirubin Total 0.3 mg/dL (0.0-1.0); Blood Urea Nitrogen 7 mg/dL (9-16); Calcium 9.5 mg/dL (8.4-10.2); Carbon Dioxide 25 mmol/L (22-29); Chloride 105 mmol/L (96-108); Creatinine Clr Calc Pharmacy 82.4; Estimated Glomerular Filt Rate > 60; Glucose Random 82 mg/dL (60-115); Magnesium 1.4 mg/dL (1.6-2.6); Potassium 3.2 mmol/L (3.3-5.1); Sodium 144 mmol/L (135-145); Total Protein 6.9 g/dL (6.5-8.0)
[2022-05-12 16:48] VITALS: PULSE 84; RESP 20; O2SAT 94
[2022-05-12 16:52] LABS: Troponin-I High Sensitivity < 3.5 ng/L (<3.5-17.0)
[2022-05-12] MEDS: Potassium Chloride ER 20 MEQ TAB.ER.PRT 40 MEQ PO (17:33)
[2022-05-12] MEDS: Magnesium Sulfate/H2O 2 GM/50 ML PIGGYBACK IV (17:33)
== END 2022-05-12 20:32 | disposition home or self-care (01) ==
PROVIDERS: Physician Assistant Medical; Emergency Provider Emergency Medicine Emergency Medical Services; PCP Internal Medicine
DX: J45.901 Unspecified asthma with (acute) exacerbation (principal); R07.89 Other chest pain; R06.02 Shortness of breath; F17.210 Nicotine dependence, cigarettes, uncomplicated; Z20.822 Contact with and (suspected) exposure to COVID-19; Z20.828 Contact with and (suspected) exposure to other viral communicable diseases; Z71.6 Tobacco abuse counseling; Z79.899 Other long term (current) drug therapy
CPT/HCPCS: 71046; 80053; 83735; 84484; 85025; 87635; 93005; 94640; 96365; 96366; 99284; J3475

== ENCOUNTER 2022-08-12 13:33 | Emergency (ER) | payer OTHER, SELFPAY | END 2022-08-12 14:59 | disposition left against medical advice (07) | PROVIDERS: Emergency Provider Emergency Medicine; PCP Internal Medicine | DX: R06.02 Shortness of breath (principal); R11.2 Nausea with vomiting, unspecified ==

== ENCOUNTER 2022-08-29 16:03 | Outpatient (REF) | payer OTHER, SELFPAY ==
[2022-08-29 18:08] LABS: Alanine Aminotransferase 68 U/L (0-31); Albumin Level 4.6 g/dL (3.5-5.0); Alkaline Phosphatase 79 U/L (39-117); Anion Gap 16 (12-20); Aspartate Amino Transferase 51 U/L (5-31); Bilirubin Total 0.5 mg/dL (0.0-1.0); Blood Urea Nitrogen 9 mg/dL (9-16); Calcium 10.2 mg/dL (8.4-10.2); Carbon Dioxide 22 mmol/L (22-29); Chloride 108 mmol/L (96-108); Estimated Glomerular Filt Rate > 60; Glucose Random 92 mg/dL (60-115); Magnesium 1.8 mg/dL (1.6-2.6); Sodium 142 mmol/L (135-145); Total Protein 7.8 g/dL (6.5-8.0)
[2022-08-29 18:25] LABS: TSH reflex Free T4 1.72 uIU/mL (0.32-4.0); Vitamin D 25-OH Total 47.1 ng/mL (>30)
[2022-09-06 13:23] LABS: Anti Nuclear Antibody Screen NEGATIVE (NEGATIVE)
== END 2022-08-29 16:04 | disposition home or self-care (01) ==
LOC: HO.LAB 16:03
PROVIDERS: PCP Internal Medicine; Visit Provider Nurse Practitioner Family
DX: M25.50 Pain in unspecified joint (principal)
CPT/HCPCS: 36415; 80053; 82306; 83735; 84443; 85027; 86038; 86431

== ENCOUNTER 2022-09-02 12:37 | Outpatient (REF) | payer OTHER, SELFPAY ==
--- NOTE | ~2022-09-02 | XR_ITS ---
Examination: XR knee LT 3V, XR knee RT 3V Indication: Pain in knee Comparison: 11/01/2016 images of the left knee Technique: 3 views of each knee were obtained. Findings: Right: No significant joint effusion. Bones are normal anatomic alignment with no acute fracture or dislocation. Mild loss of joint space in the medial compartment. No bony destructive lesions or erosions. Surrounding soft tissues unremarkable. Left: No significant knee joint effusion. Bones are normal anatomic alignment with no acute fracture or dislocation. Again there is mild loss of joint space in the medial compartment with small osteophyte formation. No bony destructive lesions. Surrounding soft tissues unremarkable XR/XR knee LT 3V Impression: Mild degenerative changes in the medial compartments bilaterally. No acute bony abnormality.
--- NOTE | ~2022-09-02 | XR_ITS ---
Examination: XR knee LT 3V, XR knee RT 3V Indication: Pain in knee Comparison: 11/01/2016 images of the left knee Technique: 3 views of each knee were obtained. Findings: Right: No significant joint effusion. Bones are normal anatomic alignment with no acute fracture or dislocation. Mild loss of joint space in the medial compartment. No bony destructive lesions or erosions. Surrounding soft tissues unremarkable. Left: No significant knee joint effusion. Bones are normal anatomic alignment with no acute fracture or dislocation. Again there is mild loss of joint space in the medial compartment with small osteophyte formation. No bony destructive lesions. Surrounding soft tissues unremarkable XR/XR knee RT 3V Impression: Mild degenerative changes in the medial compartments bilaterally. No acute bony abnormality.
== END 2022-09-02 12:38 | disposition home or self-care (01) ==
LOC: HO.XRAY 12:37
PROVIDERS: PCP Internal Medicine; Visit Provider Nurse Practitioner Family
DX: M25.561 Pain in right knee (principal); M25.562 Pain in left knee
CPT/HCPCS: 73562

== ENCOUNTER 2022-09-03 11:37 | Outpatient (AMB) | payer OTHER, SELFPAY ==
--- NOTE | 2022-09-03 11:38 | A.OFFPC_ITS ---
Vital Signs 09/03/22 11:39 Height 5 ft 3 in Weight 144 lb 8 oz BMI 25.6 BP 132/80 Blood Pressure Location Lt brachial Position Sitting Pulse 62 Pulse Source Pulse Oximeter Pulse Oximetry (%) 98 Intake Visit Reasons: requires nebulizer and albuterol solution Intake Note: pt is here to request nebulizer and albuterol solution Cost Controller Required: No Accompanied by: Self / Same As Patient Allergies azithromycin [AZITHROMYCIN] Allergy (Unknown, Verified 09/03/22 11:38) RASH, LIP SWELLING Tobacco use date assessed: 09/03/22 Dental Screening Dental Screen Date: 09/03/22 Did you have a dental visit in the last 12 months?: Yes Was dental information given to patient?: Patient has dentist HPI HPI Comments History of Present Illness Details 51-year-old female past history significant for asthma, generalized anxiety disorder, GERD and polyarthralgia. Patient Dr. Kelly last seen last week by Magalie. Patient presents with SOB, wheezing x3 days, denies fevers,chills, patient states has scratchy throat. Patient has been using albuterol inhaler if minimal improvement. Recommended patient get swabbed for COVID given his shortness of breath x3 days and has a scratchy throat. Denies fever, chills, cough and loss of taste and smell. Patient states she will swab herself at home and call office if positive to discuss trt with maricruz. [facility] Medical History Chronic GERD Immunizations incomplete Left shoulder pain Lumbar pain Mild intermittent asthma, uncomplicated Physical exam Polyarthralgia Right shoulder pain Transaminitis Surgical History History of hysterectomy Family History Mother No problems noted. Father No problems noted. Social History Housing: House Alcohol intake: current Alcohol intake frequency: holidays/special occasions only Alcohol type: beer Patient Tobacco Use Status: Current everyday Tobacco user Tobacco use type: Cigarette Cigarettes Per Day: 3 e-Cigarette/Vaping Use: Never Used Second Hand Smoke Exposure: No service: No Current occupational status: employed Current occupational exposures/hazards: No Cognitive needs: No Hearing needs: No Vision needs: No Questionnaire Thrive Questionnaire Date Thrive assessed: 01/10/21 CHAS-7 AMB Questionnaire CHAS-7 Date CHAS - 7 assessed: 01/10/21 Source: Developed by Drs. Omar Medley, Jessica Larson, Jacobo Polanco and colleagues, with an educational blanco from [employer]. Review of Systems Const Denies chills, Denies fatigue, Denies fever(s) and Denies poor appetite Eyes Denies no additional complaints ENT Denies sinus pain, Denies sinus pressure and Reports sore throat Card Denies chest pain, Denies syncope, Denies rapid heart rate and Reports dyspnea Resp Denies cough, Reports dyspnea and Reports wheezing Neuro Denies confusion and Denies syncope Psych Denies confusion Endo Denies fatigue Aller/Immun Reports wheezing Physical exam (Primary Care) Vital Signs: Last Vital Signs Pulse 62 09/03/22 11:39 BP 132/80 09/03/22 11:39 Pulse Ox 98 09/03/22 11:39 BMI result Body Mass Index 25.6 Tobacco/Smoking Status: Tobacco use Status Tobacco use date assessed 09/03/22 09/03/22 11:43 Patient Tobacco Use Status Current everyday Tobacco 09/03/22 11:43 Tobacco use type Cigarette 09/03/22 11:43 e-Cigarette/Vaping Use Never Used 09/03/22 11:43 Thrive Assessment: Date of Thrive Assessment Date Thrive assessed 01/10/21 09/03/22 11:43 Const General: No confusion Orientation/consciousness: No confusion [facility] Head: Yes normocephalic and Yes atraumatic Throat: Yes posterior oropharynx normal Eyes Conjunctivae: conjunctivae normal Chest Chest palpation & inspection: normal inspection of the chest Resp Effort & Inspection: audible wheezes and no cough Auscultation: clear to auscultation bilaterally, no crackles, no rhonchi and wheezes scattered wheezes Cardio Rate: regular rate Rhythm: regular rhythm Heart sounds: S1 normal heart sound present and S2 normal heart sound present GI Inspection: Yes normal to inspection Neuro General: No confusion Extrem General: No edema Assessment and Plan Assessment & Plan (1) Asthma exacerbation: Code(s): J45.901 - Unspecified asthma with (acute) exacerbation Plan: Continue on albuterol as needed. Nebulizer machine in tubing ordered patient given sign script in hand to be filled at medical supply store and albuterol sulfate sent to patient's pharmacy. Prednisone 40 mg daily x5 days sent to patient's pharmacy. Signs and symptoms reviewed with patient when to follow-up for when to seek emergency medical attention can. Plan Keep scheduled physical exam in 1 month or follow up sooner if needed. Medications: New miscellaneous medical supply Nebulizer machine and tubing supplies 1 ea miscellaneous DAILY 1 ea 0RF J45.901 - Unspecified asthma with (acute) exacerbation albuterol sulfate 0.63 mg (3 mL) inhalation Q4-6H PRN 90 mL 0RF shortness of breath or wheezing J45.901 - Unspecified asthma with (acute) exacerbation prednisone 40 mg (2 x 20 mg) PO DAILY 10 tabs 0RF J45.901 - Unspecified asthma with (acute) exacerbation Coding Level of Care Code Est Pt Level 3 (56796) Diagnoses Asthma exacerbation J45.901
[2022-09-03 11:39] VITALS: BP 132/80; PULSE 62; O2SAT 98; BMI 25.6
== END 2022-09-03 12:16 | disposition home or self-care (01) ==
PROVIDERS: PCP Internal Medicine; Visit Provider Nurse Practitioner Family
DX: J45.901 Unspecified asthma with (acute) exacerbation (principal)
CPT/HCPCS: 99213

== ENCOUNTER 2022-09-13 10:22 | Outpatient (AMB) | payer OTHER, SELFPAY ==
[2022-09-13 10:25] VITALS: BP 146/98; PULSE 101; BMI 25.8
--- NOTE | 2022-09-13 10:25 | MHC.OFFVIS ---
Intake Vital Signs 09/13/22 10:25 Height 5 ft 3 in Weight 145 lb 8.081 oz BMI 25.8 BP 146/98 H Blood Pressure Location Lt brachial Position Sitting Pulse 101 H Intake Visit Reasons: Follow Up Intake Note: Haylie presents in the office as a follow up. CC: She states that she is having pains in her stomach. She has nausea and she just recently got new insurance. She did an XRAY her last visit and would like results to that. She wants to be scheduled for the EGD. She states everything she eats goes right through her. 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 Occasional loose stools. Will send patient for abdominal ultrasound. Will repeat liver enzymes today. Constipation by delayed colonic transit Will continue continue Senokot and will add Citrucel. Patient was encouraged to increase water intake, eat more vegetables and fruits, increase activity to promote better bowel motility. Chronic GERD Continue omeprazole. Patient was encouraged to get her stool sample to check for H pylori. I will see her in Transaminitis Will repeat liver enzymes today. All blood work negative for any autoimmune disorders. Patient does have elevated CRP. Complaining of joint pain. Patient was encouraged to call her PCP to be referred to rheumatology for further evaluation. IBS (irritable bowel syndrome) Occasional postprandial abdominal bloating. Discussed with patient FODMAP diet. Patient also reports of right upper quadrant pain and we will send her for ultrasound we will also rule out pancreatic insufficiency. I will see her in 6 weeks, sooner on as needed basis. Patient is agreeable to this plan and verbalizes understanding of instructions. She was given the opportunity to ask questions and all questions answered. Will discuss her going for colonoscopy and possible upper endoscopy. ? Thank you for allowing me to participate in her care Plan Orders Orders Liver Panel Today R10.9 US abdomen complete Today R10.11, R10.9 Medications New methylcellulose (laxative) (Citrucel) 500 mg PO DAILY 30 tabs 2RF K59.00 TODAY'S VISIT: Patient is here today for. Patient missed her last appointment as she had change in insurance. Patient reports to have right upper quadrant pain postprandially. Ultrasound did not show any acute. Patient denies any fever or chills. Reports occasional abdominal discomfort, epigastric pain and dyspepsia at night some. Occasionally patient will eat large meals late at night. Patient denies dysphagia or odynophagia. Denies melena, hematochezia, unintentional weight loss or ribbon like stools. Patient would like to review the low FODMAP diet again. [facility] Medical History Chronic GERD Immunizations incomplete Left shoulder pain Lumbar pain Mild intermittent asthma, uncomplicated Physical exam Polyarthralgia Right shoulder pain Transaminitis Surgical History History of hysterectomy Family History Mother No problems noted. Father No problems noted. Social History Housing: House Alcohol intake: current Alcohol intake frequency: holidays/special occasions only Alcohol type: beer Patient Tobacco Use Status: Current everyday Tobacco user Tobacco use type: Cigarette Cigarettes Per Day: 3 e-Cigarette/Vaping Use: Never Used Second Hand Smoke Exposure: No service: No Current occupational status: employed Current occupational exposures/hazards: No Cognitive needs: No Hearing needs: No Vision needs: No Review of Systems Const Denies weight gain and Denies weight loss ENT Reports no additional complaints, Denies dysphagia and Denies odynophagia Card Reports no additional complaints Resp Reports no additional complaints GI Reports abdominal pain (RUQ), Denies belching, Denies melena, Reports bloating, Denies change in bowel habits, Reports constipation, Denies dysphagia, Denies excessive flatus, Denies dyspepsia, Denies heartburn, Denies diarrhea, Reports loose stools, Denies nausea, Denies odynophagia and Denies vomiting Reports no additional complaints Musc Reports no additional complaints Neuro Reports no additional complaints Psych Reports no additional complaints Endo Reports no additional complaints Physical Exam Vital Signs: BMI result Body Mass Index 25.8 Results Reviewed Results Reviewed: ABDOMINAL ULTRASOUND NOVEMBER OF 2021 FINDINGS: PANCREAS: Normal. ABDOMINAL AORTA: The proximal, mid, and distal segments are normal in caliber. INFERIOR VENA CAVA: Visualized portions are normal. LIVER: The liver is normal in size. The liver contour is normal. The liver is diffusely echogenic with areas of focal fatty sparing around the gallbladder. No focal solid hepatic lesion. There is no intrahepatic biliary duct dilatation seen. GALLBLADDER: The gallbladder is contracted. COMMON BILE DUCT: Normal in caliber measuring 0.4 cm in diameter. RIGHT KIDNEY: Normal. No hydronephrosis. No renal calculi or focal parenchymal lesions. The kidney measures 10.4 cm in maximum dimension. LEFT KIDNEY: Normal. No hydronephrosis. No renal calculi or focal parenchymal lesions. The kidney measures 10.2 cm in maximum dimension. SPLEEN:? The spleen measures 6.9 cm in maximum dimension. FREE FLUID: None. US/US abdomen complete IMPRESSION: Diffusely echogenic liver with areas of focal fatty sparing. ? Contracted gallbladder. Laboratory Tests 11/09/21 05/12/22 08/29/22 11:55 16:11 16:14 AST 47 H 67 H 51 H ALT 56 H 77 H 68 H Assessment & Plan Assessment & Plan (1) Transaminitis: Code(s): R74.01 - Elevation of levels of liver transaminase levels Plan: Patient continues with elevated liver enzymes. Patient was encouraged to go on low fat diet and list provided to patient (2) Postprandial abdominal pain in right upper quadrant: Code(s): R10.11 - Right upper quadrant pain Plan: Postprandial abdominal pain and right upper quadrant. Patient will be sent for HIDA scan. (3) Constipation by delayed colonic transit: Code(s): K59.01 - Slow transit constipation Plan: Patient will be given script for Citrucel and Senokot. Patient was also instructed to increase fluid intake and activity to promote better bowel motility (4) Chronic GERD: Code(s): K21.9 - Gastro-esophageal reflux disease without esophagitis Plan: Continue omeprazole. Will add famotidine at bedtime. Patient was also encouraged to avoid dietary triggers and late night snacking. Staying upright for minimum 3 hours after meals discussed with patient. (5) IBS (irritable bowel syndrome): Code(s): K58.9 - Irritable bowel syndrome without diarrhea Qualifiers: Irritable bowel syndrome type: with both diarrhea and constipation Qualified Code(s): K58.2 - Mixed irritable bowel syndrome Plan: Postprandial abdominal bloating and cramping. Low FODMAP diet discussed with patient. List of food recommended as well as list of food to avoid given to patient. Patient will be sent for HIDA scan. I will see her in 3 months, sooner on as needed basis. Patient is agreeable to this plan and verbalizes understanding of instructions. He was given the opportunity to ask questions and all questions answered. Thank you for allowing me to participate in her care Orders: Orders Lipase Today R10.9 - Unspecified abdominal pain NM hepatobiliary w pharm Today R10.11 - Right upper quadrant pain, R74.01 - Elevation of levels of liver transaminase levels Medications: New famotidine (Pepcid) 20 mg PO BEDTIME 30 tabs 3RF K21.9 - Gastro-esophageal reflux disease without esophagitis methylcellulose (laxative) (Citrucel) take it with full glass of water 500 mg PO DAILY 90 tabs 2RF K59.00 - Constipation, unspecified Refilled sennosides (Natural Senna Laxative) 8.6 mg PO BEDTIME 90 tabs 3RF constipation K59.00 - Constipation, unspecified Coding Level of Care Code Est Pt Level 3 (70227) Diagnoses Transaminitis R74.01 Postprandial abdominal pain in right upper quadrant R10.11 Constipation by delayed colonic transit K59.01 Chronic GERD K21.9 IBS (irritable bowel syndrome) K58.2 Irritable bowel syndrome type: with both diarrhea and constipation Time Spent (min) 30 Comment 20 minutes spent with patient and additional 10 minutes spent reviewing her records
== END 2022-09-13 11:03 | disposition home or self-care (01) ==
PROVIDERS: PCP Internal Medicine; Visit Provider Nurse Practitioner Family
DX: R74.01 Elevation of levels of liver transaminase levels (principal); R10.11 Right upper quadrant pain; K59.01 Slow transit constipation; K21.9 Gastro-esophageal reflux disease without esophagitis; K58.2 Mixed irritable bowel syndrome
CPT/HCPCS: 99213

== ENCOUNTER → 2022-09-13 10:22 | Outpatient (BNVA) | payer OTHER, SELFPAY | PROVIDERS: PCP Internal Medicine; Visit Provider Nurse Practitioner Family | DX: R74.01 Elevation of levels of liver transaminase levels (principal); R10.11 Right upper quadrant pain; K59.01 Slow transit constipation; K21.9 Gastro-esophageal reflux disease without esophagitis; Z79.899 Other long term (current) drug therapy; K58.2 Mixed irritable bowel syndrome | CPT/HCPCS: 99212 ==

== ENCOUNTER 2022-10-03 09:20 | Outpatient (AMB) | payer OTHER, SELFPAY ==
[2022-10-03 09:23] VITALS: BP 132/80; PULSE 80; O2SAT 99; BMI 25.9
--- NOTE | 2022-10-03 09:23 | A.OFFPC_ITS ---
Vital Signs 10/03/22 09:23 Height 5 ft 3 in Weight 146 lb BMI 25.9 BP 132/80 Blood Pressure Location Lt brachial Position Sitting Pulse 80 Pulse Source Pulse Oximeter Temp Source Skin Pulse Oximetry (%) 99 Oxygen Delivery Method Room Air Intake Visit Reasons: Physical Exam Intake Note: Patient is here today for a physical. 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 Allergies azithromycin [AZITHROMYCIN] Allergy (Unknown, Verified 10/03/22 09:40) RASH, LIP SWELLING Medication List - Last Reconciled 10/03/22 by TIFFANIE Faith albuterol sulfate 0.63 mg (3 mL) inhalation Q4-6H PRN albuterol sulfate 90 mcg/actuation (Ventolin HFA) 2 puffs inhalation Q4-6H PRN cholecalciferol (vitamin D3) 25 mcg PO DAILY 90 days diclofenac sodium 1% (Arthritis Pain (diclofenac)) 2 grams topical QID PRN famotidine (Pepcid) 20 mg PO BEDTIME lidocaine 4% (Aspercreme (lidocaine)) 2 patches topical DAILY PRN loratadine (Allergy Relief (loratadine)) 10 mg PO DAILY 90 days lorazepam 0.5 mg PO DAILY PRN 10 days methylcellulose (laxative) (Citrucel) 500 mg PO DAILY miscellaneous medical supply 1 ea miscellaneous DAILY omeprazole 20 mg PO DAILY 90 days sennosides (Natural Senna Laxative) 8.6 mg PO BEDTIME Tobacco use date assessed: 10/03/22 Dental Screening Dental Screen Date: 10/03/22 Did you have a dental visit in the last 12 months?: Yes Did you have a dental problem in the last 6 months where you did not have access to dental care?: No HPI Physical Exam HPI Details Patient is a 51-year-old female who presents today for physical exam. Patient of Dr. Elam. Medical history significant for GERD-followed by [facility], asthma, bilateral shoulder pain, anxiety, transaminitis-followed by [facility], constipation, bilateral knee pain-will be seeing [facility]. Today we discussed patient's need for colon cancer screening, will refer. Patient is due for mammogram. Patient would like to hold off on pneumonia vaccine. Patient does not receive Pap smears anymore due to history of partial hysterectomy, she reports she only has her ovaries. Patient reports difficulty falling and staying asleep, would like treatment for this. Reports intermittent wheezing, reports that inhaler helps her, reports that she has prednisone at home that she did not finish last time for asthma exacerbation. No chest pain. [facility] Medical History Chronic GERD Immunizations incomplete Left shoulder pain Lumbar pain Mild intermittent asthma, uncomplicated Physical exam Polyarthralgia Right shoulder pain Transaminitis Surgical History History of hysterectomy Family History Mother No problems noted. Father No problems noted. Social History Housing: House Alcohol intake: current Alcohol intake frequency: holidays/special occasions only Alcohol type: beer Patient Tobacco Use Status: Current everyday Tobacco user Tobacco use type: Cigarette Cigarettes Per Day: 3 e-Cigarette/Vaping Use: Never Used Second Hand Smoke Exposure: No service: No Current occupational status: employed Current occupational exposures/hazards: No Cognitive needs: No Hearing needs: No Vision needs: No Questionnaire PHQ-9 Over the last 2 weeks, how often have you been bothered by any of the following problems? 1. Little interest or pleasure in doing things: several days 2. Feeling down, depressed, or hopeless: several days 3. Trouble falling or staying asleep, or sleeping too much: nearly every day 4. Feeling tired or having little energy: not at all 5. Poor appetite or overeating: not at all 6. Feeling bad about yourself - or that you are a failure or have let yourself or your family down: not at all 7. Trouble concentrating on things, such as reading the newspaper or watching television: not at all 8. Moving or speaking so slowly that other people could have noticed. Or the opposite - being so fidgety or restless that you have been moving around a lot more than usual: not at all 9. Thoughts that you would be better off or of hurting yourself in some way: not at all Total score: 5 Depression Screening Interpretation: Negative [id number] - PHQ-9 Billing: Yes Source: Developed by Drs. Jessica Shelley, Jacobo Polanco and colleagues, with an educational blanco from [employer]. Thrive Questionnaire Date Thrive assessed: 01/10/21 AUDIT C Alcohol Use Questionnaire (AUDIT-C) 1. How often do you have a drink containing alcohol?: 2-4 times a month 2. How many drinks containing alcohol do you have on a typical day when you are drinking?: 5 or 6 3. How often do you have six or more drinks on one occasion?: Monthly Total Score: 6 Score Reviewed/Action Taken: Yes CHAS-7 AMB Questionnaire CHAS-7 Date CHAS - 7 assessed: 10/03/22 Feeling nervous, anxious, or on edge: 1 = Several days Not being able to stop or control worryin = Several days Worrying too much about different things: 0 = Not at all Trouble relaxin = Not at all Being so restless that it is hard to sit still: 0 = Not at all Becoming easily annoyed or irritable: 0 = Not at all Feeling afraid as if something awful might happen: 0 = Not at all Total CHAS-7 score (0-4 normal; 5-9 mild; 10-14 moderate; 15-21 severe): 2 Source: Developed by Drs. Omar Medley, Jessica Larson, Jacobo Polanco and colleagues, with an educational blanco from [employer]. CHAS-7 Assessment Billing CHAS-7 Assessment Tool: CHAS-7 Assessment 31597 Review of Systems Const Denies body aches, Denies chills, Denies fever(s) and Denies headache(s) Eyes Denies change in vision ENT Denies dizziness, Denies otalgia, Denies headache(s), Denies nasal discharge, Denies sinus pain and Denies sore throat Card Denies chest pain, Denies edema, Denies lightheadedness and Denies dyspnea Resp Denies cough, Denies dyspnea and Reports wheezing (Intermittent) GI Denies abdominal pain Denies dysuria Musc Denies myalgias and Reports arthralgias Skin/Breast Denies rash Neuro Denies dizziness and Denies headache(s) Aller/Immun Reports wheezing (Intermittent) Physical exam (Primary Care) Vital Signs: Last Vital Signs Pulse 80 10/03/22 09:23 BP 132/80 10/03/22 09:23 Pulse Ox 99 10/03/22 09:23 Oxygen Delivery Method Room Air 10/03/22 09:23 BMI result Body Mass Index 25.9 Tobacco/Smoking Status: Tobacco use Status Tobacco use date assessed 10/03/22 10/03/22 09:24 Patient Tobacco Use Status Current everyday Tobacco 10/03/22 09:24 Tobacco use type Cigarette 10/03/22 09:24 e-Cigarette/Vaping Use Never Used 10/03/22 09:24 PHQ-9: PHQ-9 Score PHQ-9: Total score 5 10/03/22 09:30 Depression Screening Interpretation: Negative Thrive Assessment: Date of Thrive Assessment Date Thrive assessed 01/10/21 10/03/22 09:24 Const General: cooperative and no acute distress Orientation/consciousness: patient oriented x3 HENMT Head: Yes normocephalic and Yes atraumatic Ears: TM's normal bilaterally Face and sinus: Yes sinuses nontender Mouth: oropharynx normal and moist mucous membranes Throat: Yes posterior oropharynx normal Eyes General: appearance normal, both eyes and all related structures Pupils: Equal, round and reactive pupils present EOM: EOMs intact bilaterally Neck Neck: Yes normal visual inspection, Yes full ROM and Yes no lymphadenopathy Thyroid: Thyroid normal Resp Effort & Inspection: normal respiratory effort and able to speak in complete sentences Auscultation: clear to auscultation bilaterally, no crackles, no rales, no rhonchi and no wheezes Cardio Rate: regular rate Rhythm: regular rhythm Heart sounds: S1 normal heart sound present, S2 normal heart sound present and no murmurs GI Palpation (GI): Soft to palpation, not firm, nontender, no guarding, not rigid and no hepatosplenomegaly Auscultation: normal bowel sounds General: No CVA tenderness Back/Spine/Pelvis Back: No CVA tenderness Skin General skin exam: no rashes or lesions noted Neuro General: patient oriented x3 Cranial nerves: Yes Equal, round and reactive pupils present Gait exam (Neuro): Normal gait present Extrem General: Yes full ROM and No edema Assessment and Plan Assessment & Plan (1) Insomnia: Code(s): G47.00 - Insomnia, unspecified Plan: Sleep hygiene Start hydroxyzine 25 mg at bedtime p.r.n.-educated about drowsiness (2) Eye exam, routine: Code(s): Z01.00 - Encounter for examination of eyes and vision without abnormal findings Plan: Patient is due for eye exam, will refer (3) Screening for hyperlipidemia: Code(s): Z13.220 - Encounter for screening for lipoid disorders (4) Screening for colon cancer: Code(s): Z12.11 - Encounter for screening for malignant neoplasm of colon (5) Screening for breast cancer: Code(s): Z12.39 - Encounter for other screening for malignant neoplasm of breast (6) CHAS (generalized anxiety disorder): Code(s): F41.1 - Generalized anxiety disorder Plan: Will follow-up on counseling referral Start hydroxyzine 25 mg at bedtime p.r.n. (7) Mild intermittent asthma, uncomplicated: Code(s): J45.20 - Mild intermittent asthma, uncomplicated Plan: Continue albuterol inhaler and nebulizer treatment p.r.n. (8) Chronic GERD: Code(s): K21.9 - Gastro-esophageal reflux disease without esophagitis Plan: Continue current treatment Avoid GERD trigger foods Do not lay down 2-3 hours after evening meal Continue to follow-up with [facility] (9) Adult general medical exam: Code(s): Z00.00 - Encounter for general adult medical examination without abnormal findings Plan Follow-up with PCP in 4 months or sooner as needed Patient reports she does not drink alcohol every day, reports she does not need help on alcohol cessation Orders: Orders Lipid Panel Today Z13.220 - Encounter for screening for lipoid disorders MM tomosynthesis screening BI Today Z12.31 - Encounter for screening mammogram for malignant neoplasm of breast Referrals Gastroenterology Referral Z12.11 - Encounter for screening for malignant neoplasm of colon Ophthalmology Referral Z01.00 - Encounter for examination of eyes and vision without abnormal findings Medications: New hydroxyzine HCl 25 mg PO BEDTIME PRN 14 tabs 0RF insomnia G47.00 - Insomnia, unspecified Refilled omeprazole 20 mg PO DAILY 90 days 90 caps 3RF Coding Level of Care Code Est Pt Prev Care 40-64y(21533) Diagnoses Insomnia G47.00 Eye exam, routine Z01.00 Screening for hyperlipidemia Z13.220 Screening for colon cancer Z12.11 Screening for breast cancer Z12.39 CHAS (generalized anxiety disorder) F41.1 Mild intermittent asthma, uncomplicated J45.20 Chronic GERD K21.9 Adult general medical exam Z00.00 Additional Codes CHAS-7 Assessment Billing - CHAS-7 Assessment Tool: CHAS-7 Assessment 13681 ([id number])
== END 2022-10-03 10:07 | disposition home or self-care (01) ==
PROVIDERS: PCP Internal Medicine; Visit Provider Nurse Practitioner Family
DX: Z00.00 Encounter for general adult medical examination without abnormal findings (principal); G47.00 Insomnia, unspecified; J45.20 Mild intermittent asthma, uncomplicated; K21.9 Gastro-esophageal reflux disease without esophagitis; F41.1 Generalized anxiety disorder
CPT/HCPCS: 99396

== ENCOUNTER 2022-10-04 07:21 | Outpatient (REF) | payer OTHER, SELFPAY ==
--- NOTE | ~2022-10-04 | XR_ITS ---
EXAMINATION: XR SHOULDER, RIGHT CLINICAL INFORMATION: Pain. COMPARISON: Prior radiographs dated 10/24/2021. TECHNIQUE: AP external rotation, Grashey, scapular Y, and axillary views of the right shoulder. FINDINGS: Bony alignment and mineralization are normal. The glenohumeral joint is intact. The acromioclavicular and coracoclavicular intervals are normal. No fracture or dislocation is seen. There is no abnormal soft tissue calcification or foreign body. No right pneumothorax is seen. XR/XR shoulder RT min 2V IMPRESSION: Normal right shoulder. EXAMINATION: XR SHOULDER, LEFT CLINICAL INFORMATION: Pain. COMPARISON: Prior radiographs dated 10/24/2021. TECHNIQUE: AP external rotation, Grashey, scapular Y, and axillary views of the left shoulder. FINDINGS: Bony alignment and mineralization are normal. The glenohumeral joint is intact. The acromioclavicular and coracoclavicular normal. No fracture or dislocation is seen. There is are stable sclerotic bone islands noted within the glenoid and left humeral head. There is no abnormal soft tissue calcification or foreign body. No left pneumothorax is seen. IMPRESSION: Unremarkable left shoulder.
--- NOTE | ~2022-10-04 | XR_ITS ---
EXAMINATION: XR SHOULDER, RIGHT CLINICAL INFORMATION: Pain. COMPARISON: Prior radiographs dated 10/24/2021. TECHNIQUE: AP external rotation, Grashey, scapular Y, and axillary views of the right shoulder. FINDINGS: Bony alignment and mineralization are normal. The glenohumeral joint is intact. The acromioclavicular and coracoclavicular intervals are normal. No fracture or dislocation is seen. There is no abnormal soft tissue calcification or foreign body. No right pneumothorax is seen. XR/XR shoulder LT min 2V IMPRESSION: Normal right shoulder. EXAMINATION: XR SHOULDER, LEFT CLINICAL INFORMATION: Pain. COMPARISON: Prior radiographs dated 10/24/2021. TECHNIQUE: AP external rotation, Grashey, scapular Y, and axillary views of the left shoulder. FINDINGS: Bony alignment and mineralization are normal. The glenohumeral joint is intact. The acromioclavicular and coracoclavicular normal. No fracture or dislocation is seen. There is are stable sclerotic bone islands noted within the glenoid and left humeral head. There is no abnormal soft tissue calcification or foreign body. No left pneumothorax is seen. IMPRESSION: Unremarkable left shoulder.
== END 2022-10-04 07:22 | disposition home or self-care (01) ==
LOC: HO.HOSX 07:21
PROVIDERS: Visit Provider Physician Assistant
DX: M75.101 Unspecified rotator cuff tear or rupture of right shoulder, not specified as traumatic (principal); M75.102 Unspecified rotator cuff tear or rupture of left shoulder, not specified as traumatic
CPT/HCPCS: 20610; 73030; J1040

== ENCOUNTER 2022-10-04 08:56 | Outpatient (AMB) | payer OTHER, SELFPAY ==
--- NOTE | 2022-10-04 09:10 | MHC.OFFVIS ---
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 States her left shoulder is currently worse. No injury she can recall. 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 Pain travels to her neck and radiates down her arm, worsen with heavy lifting. At times she has numbness and tingling that increases at night. NO EMG done. States she was Rx'd lidocaine patches which helps a little bit. No shoulder injections. 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 The patient reports her left shoulder is worse then her right shoulder. She does not recall any injury. She states the pain could be induced by over use from her job. She states the pain radiates from her neck down her arm. She claims the pain increaes with lifting. She confirms occasional numbness and tingling that increases at night. She has not had an EMG performed. She states she was prescribed lidocaine patches in the past which gave her a little relief. 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 Patient has no history of cortisone injections. [facility] Medical History Chronic GERD Immunizations incomplete Left shoulder pain Lumbar pain Mild intermittent asthma, uncomplicated Physical exam Polyarthralgia Right shoulder pain Transaminitis Surgical History History of hysterectomy Family History Mother No problems noted. Father No problems noted. 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 Current occupational exposures/hazards: No Cognitive needs: No Hearing needs: No Vision needs: No Review of Systems Const All systems reviewed & are unremarkable except as noted in HPI and below Physical Exam Vital Signs: BMI result Body Mass Index 25.9 Const General: cooperative and no acute distress Orientation/consciousness: patient oriented x3 Resp Effort & Inspection: normal respiratory effort and able to speak in complete sentences Cardio Peripheral pulses: Peripheral pulses 2+ throughout Skin General skin exam: no rashes or lesions noted Neuro General: patient oriented x3 Extrem Other: Bilateral shoulders: Normal to inspection. No ecchymosis, erythema, or edema. Full shoulder ROM in all planes. Negative cross-body reach. Negative empty can. Negative drop arm. NVI. Office Procedures Joint Injection/Drain Joint Injection/Drain Primary Site: right shoulder Secondary Site: left shoulder Prep: site was prepped using aseptic technique, ethochloride spray was applied and injection warnings given Injected: 80 mg of, DepoMedrol, with 8 mL of (2% plain lido ) and in the subcromial space Approach Used: posterolateral Procedure: The patient tolerated the procedure well, but had some pain with the injection and there was some relief with the local anesthesia Coding 91799 - Large joint Procedure code (CPT) selection complete Results Reviewed Results Reviewed: 10/04/22 09:29 Lidocaine HCl 2 % MPF [Xylocaine 2 % MPF] 5 ml .ROUTE .STK-MED ONE methylPREDNISolone acetate [DEPO-MedroL] 80 mg .ROUTE .STK-MED ONE Assessment & Plan Assessment & Plan (1) Painful arc syndrome of right shoulder: Code(s): M75.101 - Unspecified rotator cuff tear or rupture of right shoulder, not specified as traumatic (2) Painful arc syndrome of left shoulder: Code(s): M75.102 - Unspecified rotator cuff tear or rupture of left shoulder, not specified as traumatic Plan Ms. Alicea is a 51-year-old right hand dominant female who presents in the office today, as a new patient, for an evaluation of bilateral shoulder pain. The patient reports her left shoulder is worse then her right shoulder. She does not recall any injury. She states the pain could be induced by over use from her job. She states the pain radiates from her neck down her arm. She claims the pain increaes with lifting. She confirms occasional numbness and tingling that increases at night. She has not had an EMG performed. She states she was prescribed lidocaine patches in the past which gave her a little relief. 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 Patient has no history of cortisone injections. The patient was offered a cortisone injection in the bilateral shoulders with 80 mg of DepoMedrol. The patient was explained the risk, benefits, and alternatives to receiving this injection. After receiving consent for the injection, the patient had the procedure done while in office today. The patient tolerated the procedure well with no complications. The patient will be referred to physical therapy to work on ROM and strengthening of the bilateral shoulders. will be referred for an MRI to further evaluate the leison found on the patient?s x-rays of the left shoulder. Follow up will be after the MRI is obtained, or sooner if needed. X-rays of the bilateral shoulders which were obtained while in the office today and were reviewed by me, Wendy Madsen PA-C, revealed no evidence of acute fractures or dislocation. Left shoulder lesion noted, likely bone island. Orders: Orders XR shoulder LT min 2V Today M25.519 - Pain in unspecified shoulder XR shoulder RT min 2V Today M25.519 - Pain in unspecified shoulder MR shoulder LT wo con Today M75.101 - Unspecified rotator cuff tear or rupture of right shoulder, not specified as traumatic, M75.102 - Unspecified rotator cuff tear or rupture of left shoulder, not specified as traumatic Patient Instructions: Scribed for Wendy Madsen PA-C by [employer] medical van driver, on 10/04/2022 at 8:58 am, EST. Coding Level of Care Code New Pt Level 4 (06383) Diagnoses Painful arc syndrome of right shoulder M75.101 Painful arc syndrome of left shoulder M75.102 CPT Codes Coding - 08375 Large joint: 62326 - Large joint ([id number])
[2022-10-04 09:11] VITALS: BMI 25.9
== END 2022-10-04 09:41 | disposition home or self-care (01) ==
PROVIDERS: PCP Internal Medicine; Visit Provider Physician Assistant
DX: M75.101 Unspecified rotator cuff tear or rupture of right shoulder, not specified as traumatic (principal); M75.102 Unspecified rotator cuff tear or rupture of left shoulder, not specified as traumatic
CPT/HCPCS: 20610; 99214

== ENCOUNTER 2022-10-10 09:14 | Outpatient (AMB) | payer OTHER, SELFPAY ==
[2022-10-10 09:18] VITALS: BMI 25.9
--- NOTE | 2022-10-10 09:18 | MHC.OFFVIS ---
Intake Vital Signs 10/10/22 09:18 Height 5 ft 3 in Weight 146 lb BMI 25.9 Intake Visit Reasons: NewProb-Bilateral Knee Pain Intake Note: Haylie 51 yr old female presents today for bilateral knee pains and giving way. She states that her left knee is more bothersome than is her right at this time. She did injure her left knee several years ago. She twisted her knee and had acute onset of pain. Most of the pain is along the medial aspect of her knee. She has had injections in the past which gave her minimal relief. She has also done physical therapy for 12 weeks over the last 6 months which aggravated her pain. She has tried Tylenol and anti-inflammatory medicines which gave her minimal relief. The patient states that both of her knees will give out several times per day. Allergies azithromycin [AZITHROMYCIN] Allergy (Unknown, Verified 10/10/22 09:21) RASH, LIP SWELLING Medication List - Last Reconciled 10/10/22 by Bryant Castellano MD albuterol sulfate 0.63 mg (3 mL) inhalation Q4-6H PRN albuterol sulfate 90 mcg/actuation (Ventolin HFA) 2 puffs inhalation Q4-6H PRN cholecalciferol (vitamin D3) 25 mcg PO DAILY 90 days diclofenac sodium 1% (Arthritis Pain (diclofenac)) 2 grams topical QID PRN hydroxyzine HCl 25 mg PO BEDTIME PRN lidocaine 4% (Aspercreme (lidocaine)) 2 patches topical DAILY PRN loratadine (Allergy Relief (loratadine)) 10 mg PO DAILY 90 days lorazepam 0.5 mg PO DAILY PRN 10 days methylcellulose (laxative) (Citrucel) 500 mg PO DAILY miscellaneous medical supply 1 ea miscellaneous DAILY omeprazole 20 mg PO DAILY 90 days sennosides (Natural Senna Laxative) 8.6 mg PO BEDTIME [facility] Medical History Chronic GERD Immunizations incomplete Left shoulder pain Lumbar pain Mild intermittent asthma, uncomplicated Physical exam Polyarthralgia Right shoulder pain Transaminitis Surgical History History of hysterectomy Family History Mother No problems noted. Father No problems noted. 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 Current occupational exposures/hazards: No Cognitive needs: No Hearing needs: No Vision needs: No Physical Exam Vital Signs: BMI result Body Mass Index 25.9 Const Other: Well-nourished well-developed very friendly female awake alert and oriented x3 in no acute distress Extrem Other: Bilateral lower extremity examination shows good capillary refill, no skin lesions noted, normal sensation light touch Bilateral knee examination shows minimal effusions, minimal crepitus with range of motion, tenderness along her medial joint lines, positive Navid's tests, no instability Results Reviewed Results Reviewed: X-rays of the patient's bilateral knees show mild joint space, no acute bony abnormalities Assessment & Plan Assessment & Plan (1) Tear of medial meniscus of left knee: Code(s): S83.242A - Other tear of medial meniscus, current injury, left knee, initial encounter Plan Ms. Alicea presents with bilateral knee pains and mechanical symptoms, left greater than right, most likely due to medial meniscus tearing. Thus, I will send her for an MRI of her left knee for further evaluation. I will see her back once the MRI is completed to discuss the findings and treatment options. I also fitted her for bilateral knee braces. I do feel that the braces are a medical necessity to help with her instability and to help prevent falls. Patient will contact me prior to her follow-up appointment should her symptoms worsen in any way. Feel free to call me at any time should questions regarding her orthopedic management arise. I spent 22 minutes in reviewing the patient's records and imaging studies, seeing the patient and documenting in the medical record. Orders: Orders MR knee LT wo con Today S83.242A - Other tear of medial meniscus, current injury, left knee, initial encounter Coding Level of Care Code Est Pt Level 2 (57708) Diagnoses Tear of medial meniscus of left knee S83.242A
== END 2022-10-10 10:12 | disposition home or self-care (01) ==
PROVIDERS: PCP Internal Medicine; Visit Provider Orthopaedic Surgery
DX: S83.242A Other tear of medial meniscus, current injury, left knee, initial encounter (principal)
CPT/HCPCS: 99212

== ENCOUNTER → 2022-10-10 09:14 | Outpatient (BNVA) | payer OTHER, SELFPAY | PROVIDERS: PCP Internal Medicine; Visit Provider Orthopaedic Surgery | DX: S83.242A Other tear of medial meniscus, current injury, left knee, initial encounter (principal) | CPT/HCPCS: 99212 ==

== ENCOUNTER 2022-11-07 11:00 | Outpatient (RCR) | payer OTHER, SELFPAY ==
--- NOTE | 2022-12-10 07:45 | MHC.PT.DC ---
[facility] [place] Office [place] Office [place] [facility] [address] Mandy Rivera [address] [phone] F: [phone] F: [phone] F: [phone] F: [phone] Physical Therapy Discharge Report Diagnosis: VIANCA KNEE PAIN Date of Surgery: Date of Evaluation: 11/04/22 Date of Discharge: 12/10/22 Treatments to Date: 2 Cancellations to Date: 1 No Shows to Date: 0 Discharge Status: Patient Elected to Stop Discharge Summary: Pt ATTENDED ONLY EVAL AND ONE TREATMENT. ELECTED TO NOT SCHEDULE FURTHER TREATMENTS AT THAT TIME, SHE HAS NOT SCHEDULED ANY APPOINTMENTS IN THE LAST MONTH AND WILL BE DCed AT THIS TIME. Electronically signed by: MARY BETH UNDERWOOD PT DPT Please sign and return to therapist. Thank you for your referral.
== END 2022-12-10 07:45 | disposition home or self-care (01) ==
LOC: HO.PT 11:00
PROVIDERS: PCP Internal Medicine; Visit Provider Nurse Practitioner Family
DX: M25.561 Pain in right knee (principal); M25.562 Pain in left knee
CPT/HCPCS: 97110; 97161

== ENCOUNTER 2022-12-12 11:16 | Outpatient (REF) | payer OTHER, SELFPAY ==
--- NOTE | ~2022-12-12 | MM_ITS ---
EXAMINATION: MM SCREENING DIGITAL BREAST TOMOSYNTHESIS, BILATERAL CLINICAL INFORMATION: Screening. Asymptomatic. COMPARISON: Mammography: 06/28/2021, 02/28/2015, 06/03/2013, and dating back to 2009. TECHNIQUE: Digital breast tomosynthesis is performed in both the craniocaudal and mediolateral oblique views along with computer-aided detection (CAD). Synthesized 2D images are generated from the tomosynthesis. FINDINGS: The breasts are heterogeneously dense, which may obscure small masses (ACR BI-RADS breast composition Category c). There are no suspicious masses, suspicious grouped calcifications, or areas of architectural distortion in either breast. The parenchymal pattern is stable from prior exams. There are benign left dermal calcifications. No axillary abnormalities. MM/MM tomosynthesis screening BI IMPRESSION: No mammographic evidence of malignancy. Stable benign findings. ASSESSMENT: BI-RADS BI-RADS 2 - Benign Findings RECOMMENDATION: Routine annual mammography screening. 1 year F/U This examination should not preclude the clinical evaluation of a suspicious palpable abnormality. This patient's information was entered into a reminder system with a target due date for their next mammogram.
== END 2022-12-12 11:17 | disposition home or self-care (01) ==
LOC: HO.MAMMO 11:16
PROVIDERS: PCP Internal Medicine; Visit Provider Nurse Practitioner Family
DX: Z12.31 Encounter for screening mammogram for malignant neoplasm of breast (principal)
CPT/HCPCS: 77063; 77067

== ENCOUNTER → 2022-12-12 11:30 | Outpatient (BNV) | payer OTHER, SELFPAY | PROVIDERS: PCP Internal Medicine; Visit Provider Radiology Diagnostic Radiology | DX: Z12.31 Encounter for screening mammogram for malignant neoplasm of breast (principal) | CPT/HCPCS: 77063; 77067 ==

== ENCOUNTER 2022-12-24 09:56 | Outpatient (REF) | payer OTHER, SELFPAY ==
--- NOTE | ~2022-12-24 | MR_ITS ---
EXAMINATION: MR SHOULDER WITHOUT CONTRAST, LEFT CLINICAL INFORMATION: Left shoulder pain despite conservative management. Evaluate for a rotator cuff tendon tear. COMPARISON: Left shoulder radiographs dated 10/04/2022. TECHNIQUE: Multisequence MR imaging of the left shoulder was obtained without contrast on a high-field strength scanner. FINDINGS: Evaluation limited secondary to patient motion. ROTATOR CUFF: Supraspinatus and infraspinatus tendinosis. The supraspinatus appears attenuated anteriorly which could indicate bursal surface partial tearing. No definite full-thickness rotator cuff tendon tear. Evaluation is somewhat limited due to patient motion. No muscle atrophy or fatty infiltration. BICEPS: Intact. CORACOACROMIAL ARCH: The undersurface of the acromion is curved with no subacromial spur. Moderate acromioclavicular osteoarthritis. Fluid and edema within the subacromial-subdeltoid bursa, consistent mild bursitis. LABRUM/CAPSULE: No labral tear. Intact joint capsule. GLENOHUMERAL JOINT/MARROW: Intact articular cartilage. No acute osseous injury. Trace glenohumeral joint effusion. MR/MR shoulder LT wo con IMPRESSION: 1. Supraspinatus and infraspinatus tendinosis. Attenuation of the supraspinatus tendon anteriorly which could indicate bursal surface partial tearing. No definite full-thickness rotator cuff tendon tear. Evaluation somewhat limited due to patient motion. 2. Moderate acromioclavicular osteoarthritis. 3. Mild subacromial-subdeltoid bursitis. 4. Trace glenohumeral joint effusion.
[2022-12-24 11:37] LABS: Cholesterol 194 mg/dL (<200); HDL Cholesterol 39 mg/dL (>40); LDL Cholesterol Calculated 96 mg/dL (<100); Lipase 45 U/L (8-78); Triglycerides 296 mg/dL (<150)
== END 2022-12-24 09:57 | disposition home or self-care (01) ==
LOC: HO.MRI 09:56
PROVIDERS: Nurse Practitioner Family; PCP Internal Medicine; Referring Provider Nurse Practitioner Family; Visit Provider Physician Assistant
DX: M75.102 Unspecified rotator cuff tear or rupture of left shoulder, not specified as traumatic (principal); M75.101 Unspecified rotator cuff tear or rupture of right shoulder, not specified as traumatic; Z13.220 Encounter for screening for lipoid disorders; R10.9 Unspecified abdominal pain
CPT/HCPCS: 36415; 73221; 80061; 83690

== ENCOUNTER → 2022-12-30 11:15 | Outpatient (REF) | payer OTHER, SELFPAY ==
--- NOTE | ~2022-12-30 | NM_ITS ---
EXAMINATION: BILIARY TRACT IMAGING STUDY WITH CCK CLINICAL INFORMATION: Elevation of liver transaminases.. COMPARISON: There are no relevant prior images available at the moment for comparison. TECHNIQUE: Serial gamma scintillation camera images were obtained over the abdomen for a total observation period of 60 minutes following the intravenous administration of 5 mCi Tc-99m mebrofenin. FINDINGS: There is good concentration of activity in the liver by 5 minutes post injection. Biliary activity is visualized by 15 minutes. The gallbladder is well visualized by 20 minutes. Small bowel is well visualized by 50 minutes. At 60 minutes post radiopharmaceutical injection, a 30-minute infusion of 1.3 micrograms Sincalide was then begun and an additional 30 minutes of images were obtained. There is poor emptying of the gallbladder. By the end of the study there is good clearance of activity from the liver and visualization of diffuse small bowel activity. The calculated gallbladder ejection fraction is 2% (normal gallbladder ejection fraction is greater than 35%). NM/NM hepatobiliary w pharm IMPRESSION: Visualization of the gallbladder is evidence of a patent cystic duct and strong evidence against the diagnosis of acute cholecystitis. The common bile duct is patent. Gallbladder emptying and ejection fraction are abnormal. Liver function appears normal.
== END ==
LOC: HO.NUCMED 11:15
PROVIDERS: PCP Internal Medicine; Visit Provider Nurse Practitioner Family
DX: R10.11 Right upper quadrant pain (principal); R74.01 Elevation of levels of liver transaminase levels
CPT/HCPCS: 78227; A9537; J2805

== ENCOUNTER 2023-01-08 13:38 | Outpatient (AMB) | payer OTHER, SELFPAY ==
[2023-01-08 13:41] VITALS: BP 132/86; PULSE 92; O2SAT 98; BMI 25.3
--- NOTE | 2023-01-08 13:41 | MHC.PC.OV ---
Vital Signs 01/08/23 13:41 Height 5 ft 3 in Weight 143 lb BMI 25.3 BP 132/86 Blood Pressure Location Lt brachial Position Sitting Pulse 92 Pulse Source Pulse Oximeter Pulse Oximetry (%) 98 Oxygen Delivery Method Room Air Intake Visit Reasons: shoulder pain Intake Note: pt states alf right shoulder pain Manager Portable Required: No Allergies azithromycin [AZITHROMYCIN] Allergy (Unknown, Verified 01/08/23 13:48) RASH, LIP SWELLING Medication List - Last Reconciled 01/08/23 by TIFFANIE Faith albuterol sulfate 0.63 mg (3 mL) inhalation Q4-6H PRN albuterol sulfate 90 mcg/actuation (Ventolin HFA) 2 puffs inhalation Q4-6H PRN cholecalciferol (vitamin D3) 25 mcg PO DAILY 90 days diclofenac sodium 1% (Arthritis Pain (diclofenac)) 2 grams topical QID PRN hydroxyzine HCl 25 mg PO BEDTIME PRN lidocaine 4% (Aspercreme (lidocaine)) 2 patches topical DAILY PRN loratadine (Allergy Relief (loratadine)) 10 mg PO DAILY 90 days lorazepam 0.5 mg PO DAILY PRN 10 days methylcellulose (laxative) (Citrucel) 500 mg PO DAILY miscellaneous medical supply 1 ea miscellaneous DAILY omeprazole 20 mg PO DAILY 90 days sennosides (Natural Senna Laxative) 8.6 mg PO BEDTIME Tobacco use date assessed: 01/08/23 HPI shoulder pain HPI Details Patient is a 52-year-old female who presents today for the same day visit due to left shoulder pain for long time now. Patient of Dr. Elam. Patient reports that she was seen by Orthopedics and she had left shoulder MRI, has an upcoming appointment with [facility] tomorrow to discuss MRI results. Patient reports using Biofreeze with minimal improvement in shoulder pain. Reports left shoulder pain with range of motion. Works as [employer]. 11/2022 MR/MR shoulder LT wo con IMPRESSION: 1. Supraspinatus and infraspinatus tendinosis. Attenuation of the supraspinatus tendon anteriorly which could indicate bursal surface partial tearing. No definite full-thickness rotator cuff tendon tear. Evaluation somewhat limited due to patient motion. 2. Moderate acromioclavicular osteoarthritis. 3. Mild subacromial-subdeltoid bursitis. 4. Trace glenohumeral joint effusion. [facility] Medical History Transaminitis Right shoulder pain Left shoulder pain Lumbar pain Polyarthralgia Physical exam Mild intermittent asthma, uncomplicated Chronic GERD Immunizations incomplete Surgical History History of hysterectomy Family History Mother No problems noted. Father No problems noted. 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 How often do you have a drink containing alcohol?: 2-4 times a month 2. How many drinks containing alcohol do you have on a typical day when you are drinking?: 5 or 6 3. How often do you have six or more drinks on one occasion?: Monthly Total Score: 6 Score Reviewed/Action Taken: Yes CHAS-7 AMB Questionnaire CHAS-7 Date CHAS - 7 assessed: 10/03/22 Source: Developed by Drs. Omar Medley, Jessica Larson, Jacobo Polanco and colleagues, with an educational blanco from [employer] (power[employer]). Review of Systems Const Denies body aches, Denies chills and Denies fever(s) ENT Denies dizziness, Denies otalgia, Denies nasal discharge, Denies sinus pain and Denies sore throat Card Denies chest pain, Denies edema, Denies lightheadedness and Denies dyspnea Resp Denies dyspnea GI Denies abdominal pain Denies dysuria Musc Denies myalgias and Reports arthralgias Skin/Breast Denies rash Neuro Denies dizziness Physical exam (Primary Care) Vital Signs: Last Vital Signs Pulse 92 01/08/23 13:41 BP 132/86 01/08/23 13:41 Pulse Ox 98 01/08/23 13:41 Oxygen Delivery Method Room Air 01/08/23 13:41 BMI result Body Mass Index 25.3 Tobacco/Smoking Status: Tobacco use Status Tobacco use date assessed 01/08/23 01/08/23 13:42 Patient Tobacco Use Status Current everyday Tobacco 01/08/23 13:42 Tobacco use type Cigarette 01/08/23 13:42 e-Cigarette/Vaping Use Never Used 01/08/23 13:42 Thrive Assessment: Date of Thrive Assessment Date Thrive assessed 01/10/21 01/08/23 13:42 Const General: cooperative and no acute distress Orientation/consciousness: patient oriented x3 HENMT Head: Yes normocephalic and Yes atraumatic Throat: Yes posterior oropharynx normal Eyes General: appearance normal, both eyes and all related structures Neck Neck: Yes normal visual inspection and Yes full ROM Resp Effort & Inspection: normal respiratory effort and able to speak in complete sentences Auscultation: clear to auscultation bilaterally, no crackles, no rales, no rhonchi and no wheezes Cardio Rate: regular rate Rhythm: regular rhythm Heart sounds: S1 normal heart sound present and S2 normal heart sound present GI Auscultation: normal bowel sounds Neuro General: patient oriented x3 Gait exam (Neuro): Normal gait present Extrem Other: Left shoulder anterior aspect tender to palpation, pain with range of motion General: Yes full ROM and No edema Assessment and Plan Assessment & Plan (1) Left shoulder pain: Code(s): M25.512 - Pain in left shoulder Plan: Keep appointment with Orthopedics tomorrow scheduled Will follow-up on PT referral Start ibuprofen 400 mg every 8 hours as needed Refills sent on diclofenac cream and lidocaine patch Keep appointment with PCP as scheduled or follow-up sooner as needed Medications: New ibuprofen 400 mg PO Q8H PRN 20 tabs 0RF pain M25.512 - Pain in left shoulder Refilled lidocaine 4% (Aspercreme (lidocaine)) 2 patches topical DAILY PRN 30 ea 0RF pain M25.511 - Pain in right shoulder, M25.512 - Pain in left shoulder diclofenac sodium 1% (Arthritis Pain (diclofenac)) 2 grams topical QID PRN 100 grams 0RF pain M25.511 - Pain in right shoulder, M25.512 - Pain in left shoulder, M25.561 - Pain in right knee, M25.562 - Pain in left knee Coding Level of Care Code Est Pt Level 3 (30805) Diagnoses Left shoulder pain M25.512
== END 2023-01-08 14:04 | disposition home or self-care (01) ==
PROVIDERS: PCP Internal Medicine; Visit Provider Nurse Practitioner Family
DX: M25.512 Pain in left shoulder (principal)
CPT/HCPCS: 99213

== ENCOUNTER 2023-01-09 10:51 | Outpatient (AMB) | payer OTHER, SELFPAY ==
--- NOTE | 2023-01-09 10:57 | A.OFFVIS_ITS ---
Intake Intake Visit Reasons: OV-MRI review left shoulder Intake Note: Haylie is a 52 year old female who presents today for a for a MRI review of her left shoulder. She states that she notices that her pain radiates up to her neck. Patient reports noticing swelling in her hand as well. Allergies azithromycin [AZITHROMYCIN] Allergy (Unknown, Verified 01/09/23 11:01) RASH, LIP SWELLING HPI OV-MRI review left shoulder HPI Details 52-year-old female who presents in the [facility] today for a follow up of left shoulder pain and review of her MRI. The patient had a cortisone injection in the bilateral shoulders on 10/04/2022. The patient has a complaint of neck pain that radiated to her bilateral shoulders. She denies numbness or tingling. She reports left hand weakness. [facility] Medical History Transaminitis Right shoulder pain Left shoulder pain Lumbar pain Polyarthralgia Physical exam Mild intermittent asthma, uncomplicated Chronic GERD Immunizations incomplete Surgical History History of hysterectomy Family History Mother No problems noted. Father No problems noted. 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 No ecchymosis, erythema, or edema. Full shoulder ROM in all planes. Negative cross-body reach. Negative empty can. Negative drop arm. NVI. Assessment & Plan Assessment & Plan (1) Painful arc syndrome of left shoulder: Code(s): M75.102 - Unspecified rotator cuff tear or rupture of left shoulder, not specified as traumatic (2) Cervical radiculopathy: Code(s): M54.12 - Radiculopathy, cervical region Plan Ms. Alicea is a 52-year-old female who presents in the office today for a follow up of left shoulder pain and review of her MRI. The patient had a cortisone injection in the bilateral shoulders on 10/04/2022. The patient has a complaint of neck pain that radiated to her bilateral shoulders. She denies numbness or tingling. She reports left hand weakness. In regards for her shoulder she will follow up with Physiatry for further evaluation of her C-spine. She will also follow up will be with Dr. Hidalgo for MRI review of the left knee, or sooner if needed. MRI of the left shoulder, obtained on 12/24/2022, revealed: 1. Supraspinatus and infraspinatus tendinosis. Attenuation of the supraspinatus tendon anteriorly which could indicate bursal surface partial tearing. No definite full-thickness rotator cuff tendon tear. Evaluation somewhat limited due to patient motion. 2. Moderate acromioclavicular osteoarthritis. 3. Mild subacromial-subdeltoid bursitis. 4. Trace glenohumeral joint effusion. Patient Instructions: Scribed for Wendy Madsen PA-C by josi Sheets scribe, on 01/09/2023 at 10:56 am, EST. Coding Level of Care Code Est Pt Level 3 (12915) Diagnoses Painful arc syndrome of left shoulder M75.102 Cervical radiculopathy M54.12
== END 2023-01-09 11:21 | disposition home or self-care (01) ==
PROVIDERS: PCP Internal Medicine; Visit Provider Physician Assistant
DX: M75.102 Unspecified rotator cuff tear or rupture of left shoulder, not specified as traumatic (principal); M54.12 Radiculopathy, cervical region
CPT/HCPCS: 99213

== ENCOUNTER → 2023-01-09 10:51 | Outpatient (BNVA) | payer OTHER, SELFPAY | PROVIDERS: PCP Internal Medicine; Visit Provider Physician Assistant | DX: M75.102 Unspecified rotator cuff tear or rupture of left shoulder, not specified as traumatic (principal); M54.12 Radiculopathy, cervical region | CPT/HCPCS: 99212 ==

== ENCOUNTER 2023-02-03 10:13 | Outpatient (REF) | payer OTHER, SELFPAY ==
--- NOTE | ~2023-02-03 | MR_ITS ---
EXAMINATION: MR KNEE WITHOUT CONTRAST, LEFT CLINICAL INFORMATION: Pain greater than 5 years. Swelling. Limited range of motion. COMPARISON: None available. TECHNIQUE: MRI of the knee without contrast was performed using routine sequences on a high-field scanner. FINDINGS: MENISCI: Medial Meniscus: Intact Lateral Meniscus: A complex tear is primarily horizontal in orientation, involving the anterior horn, posterior horn, and body. A small radial component is suspected at the meniscal body. Parameniscal cysts are noted both anteriorly and posteriorly. The posterior cyst measures 1.7 x 1.1 x 1.3 cm and the anterior cluster measures 1.6 x 1 x 1 cm. LIGAMENTS: Cruciate: Intact Collateral: Intact EXTENSOR MECHANISM: Intact ARTICULAR CARTILAGE/BONE: Patellofemoral Compartment: There is mild chondral thinning at the medial trochlear facet with full-thickness chondral fissure and underlying cortical irregularity. Small marginal osteophytes. There is a thin plica crossing the medial trochlear facet without thickening or surrounding edema signal. Normal trochlear morphology. Medial Compartment: Normal Lateral Compartment: Small marginal osteophytes. Minimal chondral surface irregularity at the lateral tibial plateau without significant cartilage loss. JOINT FLUID AND BURSAE: No joint effusion. Trace Gardner's cyst. MR/MR knee LT wo con IMPRESSION: 1. Complex horizontal tear of the lateral meniscus with associated parameniscal cysts. 2. Minimal patellofemoral and lateral compartment osteoarthritis. 3. Trace Gardner's cyst.
== END 2023-02-03 10:14 | disposition home or self-care (01) ==
LOC: HO.MRI 10:13
PROVIDERS: PCP Internal Medicine; Visit Provider Orthopaedic Surgery
DX: S83.242A Other tear of medial meniscus, current injury, left knee, initial encounter (principal)
CPT/HCPCS: 73721

== ENCOUNTER 2023-02-11 09:39 | Outpatient (AMB) | payer OTHER, SELFPAY ==
--- NOTE | 2023-02-11 09:43 | MHC.OFFVIS ---
Intake Vital Signs 02/11/23 09:52 Height 5 ft 3 in Weight 143 lb BMI 25.3 Intake Visit Reasons: ov- left knee MRI review Intake Note: Haylie a 52 year old female presents today for an MRI review of left knee. She reports intermittent discomfort in her left knee. The patient states that she also has shoulder pain. She has not been working because of her shoulder pain. She states that at times her left knee will give out. Most of the pain is along the anterior aspect of her knee. She has tried Tylenol and anti-inflammatory medicines which gave her minimal relief. Allergies azithromycin [AZITHROMYCIN] Allergy (Unknown, Verified 02/11/23 09:51) RASH, LIP SWELLING Medication List - Last Reconciled 02/11/23 by Bryant Castellano MD albuterol sulfate 0.63 mg (3 mL) inhalation Q4-6H PRN albuterol sulfate 90 mcg/actuation (Ventolin HFA) 2 puffs inhalation Q4-6H PRN cholecalciferol (vitamin D3) 25 mcg PO DAILY 90 days diclofenac sodium 1% (Arthritis Pain (diclofenac)) 2 grams topical QID PRN hydroxyzine HCl 25 mg PO BEDTIME PRN ibuprofen 400 mg PO Q8H PRN lidocaine 4% (Aspercreme (lidocaine)) 2 patches topical DAILY PRN loratadine (Allergy Relief (loratadine)) 10 mg PO DAILY 90 days lorazepam 0.5 mg PO DAILY PRN 10 days methylcellulose (laxative) (Citrucel) 500 mg PO DAILY miscellaneous medical supply 1 ea miscellaneous DAILY omeprazole 20 mg PO DAILY 90 days sennosides (Natural Senna Laxative) 8.6 mg PO BEDTIME PFSH Medical History Transaminitis Right shoulder pain Left shoulder pain Lumbar pain Polyarthralgia Physical exam Mild intermittent asthma, uncomplicated Chronic GERD Immunizations incomplete Surgical History History of hysterectomy Family History Mother No problems noted. Father No problems noted. 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 Current occupational exposures/hazards: No Cognitive needs: No Hearing needs: No Vision needs: No Physical Exam Vital Signs: BMI result Body Mass Index 25.3 Const Other: Well-nourished well-developed very friendly female awake alert and oriented x3 in no acute distress Extrem Other: Bilateral lower extremity examination shows good capillary refill, no skin lesions noted, normal sensation light touch Left knee examination shows a minimal effusion, minimal crepitus with range of motion, tenderness along her medial and lateral joint lines, positive Navid's test, no instability Results Reviewed Results Reviewed: MRI of the patient's left knee shows minimal diffuse degenerative changes, a tear of the anterior horn of the lateral meniscus Assessment & Plan Assessment & Plan (1) Left knee pain: Code(s): M25.562 - Pain in left knee Plan Ms. Alicea presents with left knee pain and mechanical symptoms due to a tear of her lateral meniscus. I had a lengthy discussion with patient regarding the treatment options. At this point the patient's symptoms are tolerable to her. Activity modifications were discussed at length with the patient. She will follow up with me on an as-needed basis should her symptoms worsen in any way. Feel free to call me at any time should questions regarding her orthopedic management arise. I spent 22 minutes in reviewing the patient's records and imaging studies, seeing the patient and documenting in the medical record. Coding Level of Care Code Est Pt Level 2 (16229) Diagnoses Left knee pain M25.562
[2023-02-11 09:52] VITALS: BMI 25.3
== END 2023-02-11 09:59 | disposition home or self-care (01) ==
PROVIDERS: PCP Internal Medicine; Visit Provider Orthopaedic Surgery
DX: S83.272A Complex tear of lateral meniscus, current injury, left knee, initial encounter (principal)
CPT/HCPCS: 99213

== ENCOUNTER → 2023-02-11 09:39 | Outpatient (BNVA) | payer OTHER, SELFPAY | PROVIDERS: PCP Internal Medicine; Visit Provider Orthopaedic Surgery | DX: M25.562 Pain in left knee (principal) | CPT/HCPCS: 99212 ==

== ENCOUNTER 2023-02-11 13:12 | Outpatient (AMB) | payer OTHER, SELFPAY ==
[2023-02-11 13:15] VITALS: BP 132/80; BMI 25.7
--- NOTE | 2023-02-11 13:15 | A.OFFPC_ITS ---
Vital Signs 02/11/23 13:15 Height 5 ft 3 in Weight 145 lb BMI 25.7 BP 132/80 Blood Pressure Location Lt brachial Position Sitting Intake Visit Reasons: asthma Intake Note: Patient here for follow up asthma, multiple concerns Size Changer Required: No Accompanied by: Self / Same As Patient Allergies azithromycin [AZITHROMYCIN] Allergy (Unknown, Verified 02/11/23 13:30) RASH, LIP SWELLING Medication List - Last Reconciled 02/11/23 by Rebeca Rubio MD albuterol sulfate 0.63 mg (3 mL) inhalation Q4-6H PRN albuterol sulfate 90 mcg/actuation (Ventolin HFA) 2 puffs inhalation Q4-6H PRN cholecalciferol (vitamin D3) 25 mcg PO DAILY 90 days diclofenac sodium 1% (Arthritis Pain (diclofenac)) 2 grams topical QID PRN ibuprofen 400 mg PO Q8H PRN lidocaine 4% (Aspercreme (lidocaine)) 2 patches topical DAILY PRN loratadine (Allergy Relief (loratadine)) 10 mg PO DAILY 90 days lorazepam 0.5 mg PO DAILY PRN 10 days methylcellulose (laxative) (Citrucel) 500 mg PO DAILY miscellaneous medical supply 1 ea miscellaneous DAILY omeprazole 20 mg PO DAILY 90 days sennosides (Natural Senna Laxative) 8.6 mg PO BEDTIME Tobacco use date assessed: 01/08/23 Dental Screening Dental Screen Date: 02/11/23 Did you have a dental visit in the last 12 months?: No Did you have a dental problem in the last 6 months where you did not have access to dental care?: No Was dental information given to patient?: Patient has dentist HPI HPI Comments History of Present Illness Details This is a 52-year-old female with chronic GERD, constipation and mild intermittent asthma that complains of left ankle pain that started few weeks ago with no previous trauma. The foot is painful when doing flexion and extension. She has a torn knee and feels better with knee extension. Painful with knee flexion. Knees been follow by Ortho. GERD stable with PPIs. Constipation stable with senna as needed. Use rescue inhaler once a month. [facility] Medical History (Updated 02/11/23 @ 13:38 by Rebeca Rubio MD) Transaminitis Right shoulder pain Left shoulder pain Lumbar pain Polyarthralgia Physical exam Mild intermittent asthma, uncomplicated Chronic GERD Immunizations incomplete Surgical History History of hysterectomy Family History Mother No problems noted. Father No problems noted. 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 Omar Medley, Jessica Larson, Jacobo Polanco and colleagues, with an educational blanco from [employer]. Review of Systems Const All systems reviewed & are unremarkable except as noted in HPI and below Eyes Reports no additional complaints, Denies change in vision and Denies other visual disturbances Card Denies chest pain at rest, Denies chest pain with activity, Denies edema, Denies irregular heart rhythm, Denies claudication, Denies dyspnea, Denies dyspnea on exertion, Denies orthopnea, Denies paroxysmal nocturnal dyspnea and Denies slow heart rate Resp Denies cough, Denies dyspnea and Denies dyspnea on exertion GI Denies abdominal pain, Denies change in bowel habits, Denies excessive flatus, Denies nausea and Denies vomiting Denies urinary incontinence, Denies urinary hesitancy and Denies urinary urgency Musc Denies abnormal gait, Denies atrophy, Denies deformity and Denies limited range of motion Skin/Breast Denies bleeding lesions, Denies changing lesions and Denies rash Neuro Denies abnormal gait, Denies behavioral changes and Denies lack of coordination Psych Denies behavioral changes Physical exam (Primary Care) Vital Signs: Last Vital Signs BP 132/80 02/11/23 13:15 BMI result Body Mass Index 25.7 Tobacco/Smoking Status: Tobacco use Status Tobacco use date assessed 01/08/23 02/11/23 13:23 Patient Tobacco Use Status Current everyday Tobacco 02/11/23 13:23 Tobacco use type Cigarette 02/11/23 13:23 e-Cigarette/Vaping Use Never Used 02/11/23 13:23 Thrive Assessment: Date of Thrive Assessment Date Thrive assessed 01/10/21 02/11/23 13:23 Eyes General: appearance normal, both eyes and all related structures Eyelids: Yes eyelids normal Conjunctivae: conjunctivae normal Neck Neck: Yes normal visual inspection and Yes supple Resp Effort & Inspection: normal respiratory effort Auscultation: clear to auscultation bilaterally Cardio Jugular venous distension: no JVD Rate: regular rate Rhythm: regular rhythm Heart sounds: S1 normal heart sound present and S2 normal heart sound present Extrem General: Yes full ROM Office Procedures Flu Questionnaire Does the patient have a severe egg allergy?: No Immunizations flu vacc [id number] 6mos up(PF) 60 mcg(15 mcgx4)/0.5 mL IM syringe Performing Provider: Rebeca Rubio MD [facility] Documented (not given) by: NADEGE Streeter on 02/11/23 13:24 Reason Not Given: Patient Refused Assessment and Plan Assessment & Plan (1) Chronic GERD: Code(s): K21.9 - Gastro-esophageal reflux disease without esophagitis Plan: Continue PPIs. (2) Mild intermittent asthma, uncomplicated: Code(s): J45.20 - Mild intermittent asthma, uncomplicated Plan: Use rescue inhaler as needed. (3) Constipation by delayed colonic transit: Code(s): K59.01 - Slow transit constipation Plan: Continue senna as needed. (4) Left ankle pain: Code(s): M25.572 - Pain in left ankle and joints of left foot Plan: X-ray ordered. Referral to Podiatry. Orders: Orders XR ankle LT 2V Today M25.572 - Pain in left ankle and joints of left foot Influenza [id number] Immunization Today Z23 - Encounter for immunization Referrals Podiatry Referral M25.572 - Pain in left ankle and joints of left foot Medications: Refilled loratadine (Allergy Relief (loratadine)) 10 mg PO DAILY 90 tabs 1RF 90 days Coding Level of Care Code Est Pt Level 4 (34804) Diagnoses Chronic GERD K21.9 Mild intermittent asthma, uncomplicated J45.20 Constipation by delayed colonic transit K59.01 Left ankle pain M25.572 Time Spent (min) 22
== END 2023-02-11 13:46 | disposition home or self-care (01) ==
PROVIDERS: PCP Internal Medicine; Visit Provider Internal Medicine
DX: K21.9 Gastro-esophageal reflux disease without esophagitis (principal); J45.20 Mild intermittent asthma, uncomplicated; K59.01 Slow transit constipation; M25.572 Pain in left ankle and joints of left foot
CPT/HCPCS: 99214

== ENCOUNTER 2023-02-12 09:49 | Outpatient (REF) | payer OTHER, SELFPAY ==
--- NOTE | ~2023-02-12 | XR_ITS ---
EXAMINATION: XR CERVICAL SPINE CLINICAL INFORMATION: Cervical radiculopathy. COMPARISON: None available. TECHNIQUE: Frontal, odontoid and lateral views of the cervical spine were obtained. FINDINGS: Vertebral body heights and alignment are normal. At C3-C4, C4-C5 and C6-C7, there is mild posterior disc space narrowing. The remaining disc spaces are well-maintained. No acute fracture or spondylolisthesis is seen. This multi-level mild to moderate cervical spondylosis, most pronounced at C4-C5 and C6-C7. The posterior elements are intact. The dens is intact. No prevertebral soft tissue swelling is seen. XR/XR cervical spine 3V IMPRESSION: 1. There is mild degenerative disc disease at C3-C4, C4-C5 and C6-C7. 2. There is multi-level mild to moderate cervical spondylosis.
--- NOTE | ~2023-02-12 | XR_ITS ---
EXAMINATION: XR ANKLE, LEFT CLINICAL INFORMATION: Pain. COMPARISON: None available. TECHNIQUE: AP, lateral, and mortise views of the left ankle. FINDINGS: No fracture. Alignment is anatomic. No erosions. There is a trace calcaneal plantar spur. Joint spaces are maintained. Soft tissues are normal. XR/XR ankle LT 2V IMPRESSION: Unremarkable left ankle.
== END 2023-02-12 09:50 | disposition home or self-care (01) ==
LOC: HO.HOSX 09:49
PROVIDERS: Absent Provider Internal Medicine; PCP Internal Medicine; Visit Provider Physical Medicine & Rehabilitation
DX: M54.12 Radiculopathy, cervical region (principal); M79.18 Myalgia, other site; M25.572 Pain in left ankle and joints of left foot; S46.012A Strain of muscle(s) and tendon(s) of the rotator cuff of left shoulder, initial encounter; X58.XXXA Exposure to other specified factors, initial encounter; Y93.9 Activity, unspecified; Y92.9 Unspecified place or not applicable; Y99.8 Other external cause status; K21.9 Gastro-esophageal reflux disease without esophagitis; K82.8 Other specified diseases of gallbladder; K59.01 Slow transit constipation
CPT/HCPCS: 72040; 73600; 99202; 99212

== ENCOUNTER 2023-02-12 09:49 | Outpatient (AMB) | payer OTHER, SELFPAY ==
--- NOTE | 2023-02-12 09:52 | A.OFFVIS_ITS ---
Intake Vital Signs 02/12/23 09:56 Height 5 ft 3 in Weight 145 lb BMI 25.7 Intake Visit Reasons: Ov-left shoulder pain Intake Note: Haylie 52 yr old female presents today for a follow up visit for a further evaluation for her C-spine. Last seen with Fina Nguyen who saw patient for left shoulder pain and would like patient to be seen with Dr. Johnson. Patient states her neck pain started about 1.5 months ago and has worsen. States she has tightness and pain when lifting items. Allergies azithromycin [AZITHROMYCIN] Allergy (Unknown, Verified 02/12/23 10:38) RASH, LIP SWELLING Medication List - Last Reconciled 02/12/23 by Marilyn Coker MD albuterol sulfate 0.63 mg (3 mL) inhalation Q4-6H PRN albuterol sulfate 90 mcg/actuation (Ventolin HFA) 2 puffs inhalation Q4-6H PRN cholecalciferol (vitamin D3) 25 mcg PO DAILY 90 days diclofenac sodium 1% (Arthritis Pain (diclofenac)) 2 grams topical QID PRN ibuprofen 400 mg PO Q8H PRN lidocaine 4% (Aspercreme (lidocaine)) 2 patches topical DAILY PRN loratadine (Allergy Relief (loratadine)) 10 mg PO DAILY 90 days lorazepam 0.5 mg PO DAILY PRN 10 days methylcellulose (laxative) (Citrucel) 500 mg PO DAILY miscellaneous medical supply 1 ea miscellaneous DAILY omeprazole 20 mg PO DAILY 90 days sennosides (Natural Senna Laxative) 8.6 mg PO BEDTIME HPI HPI Comments History of Present Illness Details She saw michael JOHNSON shoulder pain, MRI as below. Referred to me for further evaluation of neck pain. 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 Had injection for shoulder with ortho, few months ago. Had dizzy with injection. No PT for shoulder - but was called yesterday, no appointment yet. Neck pain just started few months ago. She lifted arm to lift a TV, suddenly struck pain to left upper back/neck. Was already having shoulder pain already. Sometimes gets numbness on fingers, also recently. ROS - mentioned swollen ankle, seeing PCP for this [facility] Medical History Transaminitis Right shoulder pain Left shoulder pain Lumbar pain Polyarthralgia Physical exam Mild intermittent asthma, uncomplicated Chronic GERD Immunizations incomplete Surgical History History of hysterectomy Family History Mother No problems noted. Father No problems noted. 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 Patient was appropriately conversant and oriented. Good historian. MSK: Inspection reveals appropriate head and neck positioning. Tightness and tender on left upper trapezius. Cervical ROM was full. Spurling's sign negative. Positive left Rhoades sign. Positive left empty can sign. Negative speed's test. Pain with left abduction of shoulder pain Strength is 5/5 in all muscle groups tested. No increased tone noted. Neurological: Neurologic examination of the upper and lower extremities was nonfocal with intact sensation, muscle stretch reflexes and without focal motor deficits . Luis?s negative bilaterally. Babinski was down going bilaterally. Clonus was negative. Gait is non-antalgic without loss of balance. Results Reviewed Results Reviewed: MR SHOULDER WITHOUT CONTRAST, LEFT CLINICAL INFORMATION: Left shoulder pain despite conservative management. Evaluate for a rotator cuff tendon tear. COMPARISON: Left shoulder radiographs dated 10/04/2022. TECHNIQUE: Multisequence MR imaging of the left shoulder was obtained without contrast on a high-field strength scanner. FINDINGS: Evaluation limited secondary to patient motion. ROTATOR CUFF: Supraspinatus and infraspinatus tendinosis. The supraspinatus appears attenuated anteriorly which could indicate bursal surface partial tearing. No definite full-thickness rotator cuff tendon tear. Evaluation is somewhat limited due to patient motion. No muscle atrophy or fatty infiltration. BICEPS: Intact. CORACOACROMIAL ARCH: The undersurface of the acromion is curved with no subacromial spur. Moderate acromioclavicular osteoarthritis. Fluid and edema within the subacromial-subdeltoid bursa, consistent mild bursitis. LABRUM/CAPSULE: No labral tear. Intact joint capsule. GLENOHUMERAL JOINT/MARROW: Intact articular cartilage. No acute osseous injury. Trace glenohumeral joint effusion. MR/MR shoulder LT wo con IMPRESSION: 1. Supraspinatus and infraspinatus tendinosis. Attenuation of the supraspinatus tendon anteriorly which could indicate bursal surface partial tearing. No definite full-thickness rotator cuff tendon tear. Evaluation somewhat limited due to patient motion. 2. Moderate acromioclavicular osteoarthritis. 3. Mild subacromial-subdeltoid bursitis. 4. Trace glenohumeral joint effusion. I reviewed records from the following: Dr. Castellano - left knee pain Wendy JOHNSON - shoulder pain Independently reviewed cervical x-ray done today. Appears to have preserved disc spaces. Endplate spurs seen. Assessment & Plan Assessment & Plan (1) Myofascial pain: Code(s): M79.18 - Myalgia, other site (2) Strain of rotator cuff of left shoulder: Code(s): S46.012A - Strain of muscle(s) and tendon(s) of the rotator cuff of left shoulder, initial encounter (3) Cervical radiculitis: Code(s): M54.12 - Radiculopathy, cervical region Plan Suspect myofascial pain, secondary, in the setting of ongoing left rotator cuff tendinitis. No signs of cervical myelopathy on exam. Lower suspicion for cervical radiculitis. Recommended to pursue physical therapy for myofascial release. We discussed possibility of trigger point injections although patient had poor reaction to previous steroid injection given by Orthopedics to the shoulder. Discussed that I will not be using steroid for trigger point injection and perhaps she might tolerate that better. Sent for cervical x-ray today for completion, await final reading. We will re-evaluate in 4-6 weeks after she has done physical therapy, and decide on trigger point injections at that time. Assessment and plan discussed with patient, and patient was agreeable. All quest ions were answered thoroughly. Marilyn Coker MD, REYES Board Certified, [place] Board of Physical Medicine and Rehabilitation (ABPMR) Board Certified, [place] Board [employer] Electrodiagnostic Medicine (ABEM) Orders: Orders XR cervical spine 3V Today M54.12 - Radiculopathy, cervical region, M79.18 - Myalgia, other site Coding Level of Care Code New Pt Level 4 (21826) Diagnoses Myofascial pain M79.18 Strain of rotator cuff of left shoulder S46.012A Cervical radiculitis M54.12
[2023-02-12 09:56] VITALS: BMI 25.7
== END 2023-02-12 11:41 | disposition home or self-care (01) ==
PROVIDERS: PCP Internal Medicine; Visit Provider Physical Medicine & Rehabilitation
DX: M79.18 Myalgia, other site (principal); S46.012A Strain of muscle(s) and tendon(s) of the rotator cuff of left shoulder, initial encounter; M54.12 Radiculopathy, cervical region
CPT/HCPCS: 99204

== ENCOUNTER 2023-02-12 10:31 | Outpatient (AMB) | payer OTHER, SELFPAY ==
[2023-02-12 10:35] VITALS: BP 143/103; PULSE 79; BMI 25.6
--- NOTE | 2023-02-12 10:35 | MHC.OFFVIS ---
Intake Vital Signs 02/12/23 10:35 Height 5 ft 3 in Weight 144 lb 9.972 oz BMI 25.6 BP 143/103 H Blood Pressure Location Lt brachial Position Sitting Pulse 79 Pulse Source Pulse Oximeter Intake Visit Reasons: follow up after Hida Scan Intake Note: Pt presents to the office today for a follow up after Hida scan. Pt states she is feeling okay and states she has been eating better. Pt denies any N/V/D. Allergies azithromycin [AZITHROMYCIN] Allergy (Unknown, Verified 02/12/23 10:38) RASH, LIP SWELLING HPI follow up after Hida Scan HPI Details LAST VISIT Transaminitis Patient continues with elevated liver enzymes. Patient was encouraged to go on low fat diet and list provided to patient Postprandial abdominal pain in right upper quadrant Postprandial abdominal pain and right upper quadrant. Patient will be sent for HIDA scan. Constipation by delayed colonic transit Patient will be given script for Citrucel and Senokot. Patient was also instructed to increase fluid intake and activity to promote better bowel motility Chronic GERD Continue omeprazole. Will add famotidine at bedtime. Patient was also encouraged to avoid dietary triggers and late night snacking. Staying upright for minimum 3 hours after meals discussed with patient. IBS (irritable bowel syndrome) Postprandial abdominal bloating and cramping. Low FODMAP diet discussed with patient. List of food recommended as well as list of food to avoid given to patient. Patient will be sent for HIDA scan. I will see her in 3 months, sooner on as needed basis. Patient is agreeable to this plan and verbalizes understanding of instructions. He was given the opportunity to ask questions and all questions answered. ? Thank you for allowing me to participate in her care Plan Orders Orders Lipase Today R10.9 - Unspecified abdominal pain NM hepatobiliary w pharm Today R10.11 - Right upper quadrant pain, R74.01 - Elevation of levels of liver transaminase levels Medications New famotidine (Pepcid) 20 mg PO BEDTIME 30 tabs 3RF K21.9 - Gastro-esophageal reflux disease without esophagitis methylcellulose (laxative) (Citrucel) take it with full glass of water 500 mg PO DAILY 90 tabs 2RF K59.00 - Constipation, unspecified Refilled sennosides (Natural Senna Laxative) 8.6 mg PO BEDTIME 90 tabs 3RF constipation K59.00 - Constipation, unspecified TODAY'S VISIT: Patient is here today for follow-up and to discuss HIDA scan results. Patient reports that she is changing her diet and is doing little better, however she noticed that when she eats something heavier it feels like she gets full very quickly and returns upper abdominal discomfort. Patient denies any nausea or vomiting. HIDA scan shows very slow gallbladder emptying only 2%. Patient reports that she is not eating any red meats. Unsure if any significant intolerance of fatty food. Patient is trying to avoid anything fried. Reports postprandial epigastric discomfort PFSH Medical History Transaminitis Right shoulder pain Left shoulder pain Lumbar pain Polyarthralgia Physical exam Mild intermittent asthma, uncomplicated Chronic GERD Immunizations incomplete Surgical History History of hysterectomy Family History Mother No problems noted. Father No problems noted. 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 Current occupational exposures/hazards: No Cognitive needs: No Hearing needs: No Vision needs: No Review of Systems Const Denies weight gain and Denies weight loss ENT Reports no additional complaints, Denies dysphagia and Denies odynophagia Card Reports no additional complaints Resp Reports no additional complaints GI Denies abdominal pain, Denies belching, Denies melena, Denies bloating, Denies change in bowel habits, Denies dysphagia, Denies excessive flatus, Denies dyspepsia, Denies heartburn, Denies diarrhea, Denies loose stools, Denies nausea, Denies odynophagia and Denies vomiting Reports no additional complaints Musc Reports no additional complaints Neuro Reports no additional complaints Psych Reports no additional complaints Endo Reports no additional complaints Physical Exam Vital Signs: Last Vital Signs Pulse 79 02/12/23 10:35 BP 143/103 H 02/12/23 10:35 BMI result Body Mass Index 25.6 Const General: healthy appearing, no acute distress and well developed Nutritional Appearance: well nourished Orientation/consciousness: patient oriented x3 HEENT Head: Yes normal to inspection, Yes normocephalic and Yes atraumatic Face and sinus: Yes normal facial exam Mouth: Normal oral and palatal mucosa present Throat: Yes posterior oropharynx normal, Yes tonsils normal and Yes uvula midline Eyes General: appearance normal, both eyes and all related structures Neck Neck: Yes normal visual inspection, Yes full ROM and Yes trachea midline Thyroid: Thyroid normal Resp Effort & Inspection: normal respiratory effort, able to speak in complete sentences, no tracheal deviation and symmetric chest movement Auscultation: clear to auscultation bilaterally Cardio Rate: regular rate GI Inspection: Yes normal to inspection and No distended Palpation (GI): Soft to palpation, not firm, nontender and No hepatosplenomegaly present Auscultation: normal bowel sounds General: Yes no CVA tenderness Back/Spine/Pelvis Back: no CVA tenderness Skin General skin exam: elasticity normal, turgor normal and dry skin Neuro General: patient oriented x3 Psych Appearance: grossly normal Mental Status: mental status grossly normal Affect: normal affect Results Reviewed Results Reviewed: Laboratory Tests 08/29/22 08/29/22 12/24/22 16:14 16:14 10:11 Total Bilirubin 0.5 AST 51 H ALT 68 H Alkaline Phosphatase 79 Lipase 45 HIDA SCAN FINDINGS: There is good concentration of activity in the liver by 5 minutes post injection. Biliary activity is visualized by 15 minutes. The gallbladder is well visualized by 20 minutes. Small bowel is well visualized by 50 minutes. At 60 minutes post radiopharmaceutical injection, a 30-minute infusion of 1.3 micrograms Sincalide was then begun and an additional 30 minutes of images were obtained. There is poor emptying of the gallbladder. By the end of the study there is good clearance of activity from the liver and visualization of diffuse small bowel activity. The calculated gallbladder ejection fraction is 2% (normal gallbladder ejection fraction is greater than 35%). NM/NM hepatobiliary w pharm IMPRESSION: Visualization of the gallbladder is evidence of a patent cystic duct and strong evidence against the diagnosis of acute cholecystitis. The common bile duct is patent. Gallbladder emptying and ejection fraction are abnormal. Liver function appears normal. Assessment & Plan Assessment & Plan (1) Chronic GERD: Code(s): K21.9 - Gastro-esophageal reflux disease without esophagitis (2) Biliary dyskinesia: Code(s): K82.8 - Other specified diseases of gallbladder (3) Constipation: Code(s): K59.00 - Constipation, unspecified Qualifiers: Constipation type: slow transit constipation Qualified Code(s): K59.01 - Slow transit constipation Plan HIDA scan confirmed biliary dyskinesia. Patient will see a surgeon today. Will schedule surgery. Patient was encouraged to eat smaller meals avoid anything high in fat. Continue take senna daily and omeprazole every morning half an hour before breakfast. Patient was encouraged to increase fluid intake and activity to promote better bowel motility. I will see patient in 2 months, sooner on as needed basis. Patient is agreeable to this plan and verbalizes understanding of instructions. She was given the opportunity to ask questions and all questions answered. Thank you for allowing me to participate in her care Orders: Referrals General Surgery Referral K82.8 - Other specified diseases of gallbladder Medications: Refilled sennosides (Natural Senna Laxative) 8.6 mg PO BEDTIME 90 tabs 3RF constipation K59.00 - Constipation, unspecified omeprazole 20 mg PO DAILY 90 days 90 caps 3RF Coding Level of Care Code Est Pt Level 4 (21883) Diagnoses Chronic GERD K21.9 Biliary dyskinesia K82.8 Slow transit constipation K59.01 Constipation type: slow transit constipation Time Spent (min) 35 Comment 20 minutes spent with patient and additional 15 minutes spent reviewing her records
== END 2023-02-12 16:16 | disposition home or self-care (01) ==
PROVIDERS: PCP Internal Medicine; Visit Provider Nurse Practitioner Family
DX: K21.9 Gastro-esophageal reflux disease without esophagitis (principal); K82.8 Other specified diseases of gallbladder; K59.01 Slow transit constipation
CPT/HCPCS: 99214

== ENCOUNTER 2023-02-12 10:59 | Outpatient (AMB) | payer OTHER, SELFPAY ==
--- NOTE | 2023-02-12 11:01 | A.OFFVIS_ITS ---
Intake Vital Signs 02/12/23 11:05 Weight 144 lb BP 143/103 H Blood Pressure Location Rt brachial Position Sitting Intake Visit Reasons: Gallbladder Intake Note: Patient referred for gallbladder. Recent US. Patient c/o: diarrhea, nausea, vomiting. Takes senna daily. Clinical Program Coordinator Required: No Accompanied by: Self / Same As Patient Allergies azithromycin [AZITHROMYCIN] Allergy (Unknown, Verified 02/12/23 10:38) RASH, LIP SWELLING HPI HPI Comments History of Present Illness Details Patient presents with a prolonged history of epigastric/right upper quadrant fullness/bloating/discomfort. She has been seen by GI for this and workup including a recent HIDA scan demonstrates findings of significant biliary dyskinesia. Patient has never been jaundiced before. She has no other specific GI complaints. She is unclear if she has fatty food intolerance. Chart was reviewed patient evaluated. Bilirubin within normal limits. HIDA scan results as noted [facility] Medical History Transaminitis Right shoulder pain Left shoulder pain Lumbar pain Polyarthralgia Physical exam Mild intermittent asthma, uncomplicated Chronic GERD Immunizations incomplete Surgical History History of hysterectomy Family History Mother No problems noted. Father No problems noted. 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 Current occupational exposures/hazards: No Cognitive needs: No Hearing needs: No Vision needs: No Physical Exam Vital Signs: Last Vital Signs BP 143/103 H 02/12/23 11:05 Eyes Other: Anicteric Chest Other: Chest breath sounds bilaterally, HS 1 in 2 GI Other: Abdomen soft, benign,minimally corpulent Assessment & Plan Assessment & Plan (1) Biliary dyskinesia: Code(s): K82.8 - Other specified diseases of gallbladder Plan Risks, benefits, alternatives of laparoscopic possible open cholecystectomy for biliary dyskinesia were extensively reviewed with the patient and included but not limited to bleeding, infection, recurrence of symptoms, numbness, pain, scarring, bowel or bile duct injury or leak and the patient wishes to proceed. All questions answered. Arrangements will be made for this. Coding Level of Care Code New Pt Level 5 (34123) Diagnoses Biliary dyskinesia K82.8
[2023-02-12 11:05] VITALS: BP 143/103
== END 2023-02-12 11:23 | disposition home or self-care (01) ==
LOC: HO.HGS 11:00
PROVIDERS: PCP Internal Medicine; Referring Provider Nurse Practitioner Family; Visit Provider Surgery
DX: K82.8 Other specified diseases of gallbladder (principal)
CPT/HCPCS: 99204

== ENCOUNTER 2023-02-28 08:33 | Day surgery (SDC) | payer OTHER, SELFPAY ==
[2023-02-26 16:59] VITALS: BMI 25.7
--- NOTE | 2023-02-26 17:00 | PC.NURSE ---
Pt weighed in MD office on 02/11/23
--- NOTE | 2023-02-27 10:47 | P.CONAN_ITS ---
HPI - Anesthesia Eval Consult details Narrative: 52yo F for Cholecystectomy Laparoscopic, possible open PMFSH Active Problems Active Problems: All Active Problems (Updated 02/12/23 @ 10:10 by Marilyn Coker MD) Biliary dyskinesia (Acute) Myofascial pain (Acute) Cervical radiculitis (Acute) Left ankle pain (Acute) Left knee pain (Acute) Cervical radiculopathy (Acute) Cough (Acute) Tear of medial meniscus of left knee (Acute) Painful arc syndrome of right shoulder (Acute) Painful arc syndrome of left shoulder (Acute) Adult general medical exam (Acute) Screening for breast cancer (Acute) Insomnia (Acute) Eye exam, routine (Acute) Screening for hyperlipidemia (Acute) Screening for colon cancer (Acute) Asthma exacerbation (Acute) Bilateral knee pain (Acute) Bilateral shoulder pain (Acute) Lumbar pain (Acute) Bony sclerosis (Acute) Constipation by delayed colonic transit (Acute) CHAS (generalized anxiety disorder) (Acute) Skin lesion (Acute) Transaminitis (Acute) Lip swelling (Acute) Rash on lips (Acute) UTI (urinary tract infection) (Acute) Right shoulder pain (Acute) Left shoulder pain (Acute) Lumbar pain (Acute) Polyarthralgia (Acute) Physical exam (Acute) Mild intermittent asthma, uncomplicated (Acute) Chronic GERD (Acute) Upper respiratory tract infection (Acute) Immunizations incomplete (Acute) Past Medical History Medical History Transaminitis Right shoulder pain Left shoulder pain Lumbar pain Polyarthralgia Physical exam Mild intermittent asthma, uncomplicated Chronic GERD Immunizations incomplete Family History Family History Mother No problems noted. Father No problems noted. Surgical History Surgical History History of hysterectomy Social History Social History Housing: House Alcohol intake: current Alcohol intake frequency: holidays/special occasions only Alcohol type: beer Comment: counts correct Patient Tobacco Use Status: Current everyday Tobacco user Tobacco use type: Cigarette Cigarette Packs Per Day: 1 Cigarettes Per Day: 20.0 e-Cigarette/Vaping Use: Never Used Second Hand Smoke Exposure: No Use of substances other than those prescribed or required for medical reasons: Yes Substance Use Frequency: Daily Are you DNR?: No Advance Directives: No Advance Directives Information Provided: Yes Advance Directives on File: No Patient : No service: No Current occupational status: employed 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 Rate : 091 BPM Atrial Rate : 091 BPM P-R Int : 136 ms QRS Dur : 070 ms QT Int : 380 ms P-R-T Axes : 055 035 025 degrees QTc Int : 467 ms Sinus rhythm with Premature atrial complexes with Aberrant conduction Otherwise normal ECG When compared with ECG of 13-MAY-2010 16:32, Aberrant conduction is now Present Assessment and Plan Assessment Anesthesia Assessment: Chart Reviewed
--- NOTE | 2023-02-27 15:14 | MHC.SHP ---
Pre-Procedural Eval Section A Date of Service: 02/27/23 The patient is an INPATIENT: No Changes since office visit: No Cold of Flu in the past 2 weeks, No New Medical Problems, No Changes in Medication and No Patient answered all questions The History & Physical has been completed within 30 days and I have reviewed it.: Yes Section B Chief Complaint: Other specified diseases of gallbladder Allergies: Allergies Allergy/AdvReac Type Severity Reaction Status Date / Time azithromycin [AZITHROMYCIN] Allergy Unknown RASH, LIP Verified 02/12/23 10:38 SWELLING Plan I have reviewed the history and physical and performed a pertinent physical examination on my patient. No changes have occurred unless specified. Time Spent With Patient Time: Total time managing care of this patient today ____ minutes.
[2023-02-28] VITALS (9 sets, daily range): BP systolic 128–171; BP diastolic 76–97; PULSE 67–90; RESP 16–18; TEMP 36.1; O2SAT 95–100; BMI 25.2
--- NOTE | 2023-02-28 11:49 | HO.ANESPROP2 ---
[facility] Active Problems Active Problems: All Active Problems (Updated 02/12/23 @ 10:10 by Marilyn Coker MD) Biliary dyskinesia (Acute) Myofascial pain (Acute) Cervical radiculitis (Acute) Left ankle pain (Acute) Left knee pain (Acute) Cervical radiculopathy (Acute) Cough (Acute) Tear of medial meniscus of left knee (Acute) Painful arc syndrome of right shoulder (Acute) Painful arc syndrome of left shoulder (Acute) Adult general medical exam (Acute) Screening for breast cancer (Acute) Insomnia (Acute) Eye exam, routine (Acute) Screening for hyperlipidemia (Acute) Screening for colon cancer (Acute) Asthma exacerbation (Acute) Bilateral knee pain (Acute) Bilateral shoulder pain (Acute) Lumbar pain (Acute) Bony sclerosis (Acute) Constipation by delayed colonic transit (Acute) CHAS (generalized anxiety disorder) (Acute) Skin lesion (Acute) Transaminitis (Acute) Lip swelling (Acute) Rash on lips (Acute) UTI (urinary tract infection) (Acute) Right shoulder pain (Acute) Left shoulder pain (Acute) Lumbar pain (Acute) Polyarthralgia (Acute) Physical exam (Acute) Mild intermittent asthma, uncomplicated (Acute) Chronic GERD (Acute) Upper respiratory tract infection (Acute) Immunizations incomplete (Acute) Past Medical History Medical History Transaminitis Right shoulder pain Left shoulder pain Lumbar pain Polyarthralgia Physical exam Mild intermittent asthma, uncomplicated Chronic GERD Immunizations incomplete Patient : No Family History Family History Mother No problems noted. Father No problems noted. Family history of problems with anesthesia: No Surgical History Surgical History History of hysterectomy History of Problems with Anesthesia: No Social History Social History Housing: House Alcohol intake: current Alcohol intake frequency: holidays/special occasions only Alcohol type: beer Patient Tobacco Use Status: Current everyday Tobacco user Tobacco use type: Cigarette Cigarette Packs Per Day: 1 Cigarettes Per Day: 20.0 e-Cigarette/Vaping Use: Never Used Second Hand Smoke Exposure: No Use of substances other than those prescribed or required for medical reasons: Yes Substance Use Frequency: Daily Are you DNR?: No Advance Directives: No Advance Directives Information Provided: Yes Advance Directives on File: No service: No Current occupational status: employed 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 Current occupational exposures/hazards: No Cognitive needs: No Hearing needs: No Vision needs: No Meds Allergies Allergy/AdvReac Type Severity Reaction Status Date / Time azithromycin [AZITHROMYCIN] Allergy Unknown RASH, LIP Verified 02/12/23 10:38 SWELLING Active Medications: Current Medications Albuterol Sulfate (Albuterol Sulfate (0.083%) 2.5 Mg/3 Ml Vial.Neb) 2.5 mg INHALE ONCE PRN PRN Reason: Shortness of Breath/Wheezing Lactated Ringer's (Lr) 1,000 mls @ 100 mls/hr IVCONT .Q10H MATIAS Last Admin: 02/28/23 09:14 Dose: 100 mls/hr Exam Height,Weight and Vital Signs: Height 5 ft 3 in Weight 64.41 kg Last Vital Signs Temp 97.0 F 02/28/23 08:58 Pulse 87 02/28/23 08:58 Resp 16 02/28/23 08:58 BP 128/89 02/28/23 08:58 Pulse Ox 98 02/28/23 08:58 O2 Del Method Room Air 02/28/23 08:58 Airway Mallampati Class: II TM Dist: >3cm Neck ROM: Full Loose/Missing/Broken Teeth: No Heart: rrr Lungs: clear Assessment and Plan Final Anesthetic Review Family History of Problems with Anesthesia: No History of Problems with Anesthesia: No NPO: Yes ASA Class: II Final Preanesthetic Review: No Changes in Pt Med Stat, Meds/Allgs Chart Reviewed, Consent Obtained/Reviewed and Anes Risks/Benef Reviewed Patient Risk: Intermediate Procedure Risk: Intermediate Anesthetic Plan Anesthetic Plan: GA Disposition: Standard PACU
--- NOTE | 2023-03-06 11:48 | P.OP_ITS ---
Operative Note Operative Note Date of Service: 02/28/23 Narrative: Preoperative diagnosis: Biliary dyskinesia Postop diagnosis: [] Same Procedure [] laparoscopic cholecystectomy Surgeon: [] Aman Cloud Architect: [] Steve Type of Anesthesia: [] General Indication for surgery: [] Gallbladder with omental adhesions to it Findings: [] Patient brought to the operating room, placed on operative table supine position, after adequate level of general anesthesia was induced, the p atient's abdomen was prepped and draped in usual sterile fashion. Using a supraumbilical curvilinear incision, P[place]agua technique was used to insufflate the abdominal cavity to 15 mm of CO2. Upper midline and right subcostal ports were placed under direct laparoscopic view, and the patient was placed in reverse Trendelenburg position, tilted to the left. Gallbladder was grasped using laparoscopic graspers, and retracted superiorly and laterally. Omental adhesions were swept off the gallbladder where its hilum was approached. Cystic artery and cystic duct were each identified, circumferentially skeletonized, traced directly into the gallbladder, and critical view obtained. Each was clipped proximally x2, distally x1, and transected. Gallbladder was then cauterized the gallbladder fossa using Bovie. Specimen was placed in an Endo- Catch bag, a retrieved through the umbilical port. Abdominal cavity was copiously irrigated and secured hemostasis. All ports were removed under direct laparoscopic view. Wounds were closed in the following manner; umbilical wound is fascia reapproximated using interrupted 0 Vicryl sutures. Skin wounds were closed in subcuticular 4-0 Vicryl sutures followed by Steri-Strips and sterile dressings. Wounds were infiltrated 0.5% Marcaine at completion. Sponge, needle, and instrument counts reported correct. Patient tolerated the procedure well and emerged anesthesia stable condition. EBL minimal
== END 2023-02-28 14:19 | disposition home or self-care (01) ==
PROVIDERS: PCP Internal Medicine; Visit Provider Surgery
PROC: 0FT44ZZ Resection of Gallbladder, Percutaneous Endoscopic Approach (ICD-10-PCS; CPT 47562; principal; 2023-02-28 12:00)
DX: K80.10 Calculus of gallbladder with chronic cholecystitis without obstruction (principal); K82.8 Other specified diseases of gallbladder; D37.6 Neoplasm of uncertain behavior of liver, gallbladder and bile ducts; R74.01 Elevation of levels of liver transaminase levels; M54.50 Low back pain, unspecified; M13.0 Polyarthritis, unspecified; J45.20 Mild intermittent asthma, uncomplicated; K21.9 Gastro-esophageal reflux disease without esophagitis; Z79.899 Other long term (current) drug therapy; Z88.1 Allergy status to other antibiotic agents; F17.210 Nicotine dependence, cigarettes, uncomplicated
CPT/HCPCS: 47562; 88304; J0131; J0330; J0690; J1100; J1885; J2250; J2405; J2704; J2795; J3010

== ENCOUNTER → 2023-02-28 08:33 | Outpatient (BNV) | payer OTHER, SELFPAY | PROVIDERS: PCP Internal Medicine; Visit Provider Surgery | DX: K82.8 Other specified diseases of gallbladder (principal) | CPT/HCPCS: 47562 ==

== ENCOUNTER 2023-03-10 09:40 | Outpatient (AMB) | payer OTHER, SELFPAY ==
[2023-03-10 09:48] VITALS: BP 139/98; PULSE 110
--- NOTE | 2023-03-10 09:48 | MHC.OFFVIS ---
Intake Vital Signs 03/10/23 09:48 Weight 140 lb BP 139/98 H Blood Pressure Location Rt brachial Position Sitting Pulse 110 H Intake Visit Reasons: S/P lap tristan Intake Note: Patient s/p lap tristan on 02-28-23. Patient c/o: severe pain on Rt side of abd. Alternating tylenol and ibuprofen. 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 Aside from incisional discomfort, she is doing well. She is increasing her activity level. She is tolerating her diet moderately. Pathology was reviewed [facility] Medical History Transaminitis Right shoulder pain Left shoulder pain Lumbar pain Polyarthralgia Physical exam Mild intermittent asthma, uncomplicated Chronic GERD Immunizations incomplete Surgical History History of hysterectomy Family History Mother No problems noted. Father No problems noted. 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 All wounds clean dry and intact. Assessment & Plan Assessment & Plan (1) Biliary dyskinesia: Code(s): K82.8 - Other specified diseases of gallbladder Plan Patient is doing well postoperatively. She has been given local instructions, and avoiding strenuous activities next few weeks time. She will follow-up [email or web address].. All questions answered. Coding Level of Care Code Global (58507) Diagnoses Biliary dyskinesia K82.8
== END 2023-03-10 09:56 | disposition home or self-care (01) ==
PROVIDERS: PCP Internal Medicine; Visit Provider Surgery
DX: K82.8 Other specified diseases of gallbladder (principal)
CPT/HCPCS: 99024

== ENCOUNTER → 2023-03-10 09:40 | Outpatient (BNVA) | payer OTHER, SELFPAY | PROVIDERS: PCP Internal Medicine; Visit Provider Surgery | DX: K82.8 Other specified diseases of gallbladder (principal) | CPT/HCPCS: 99212 ==

== ENCOUNTER 2023-03-19 11:08 | Outpatient (AMB) | payer OTHER, SELFPAY ==
--- NOTE | 2023-03-19 11:23 | A.OFFVIS_ITS ---
Intake Vital Signs 03/19/23 11:23 Weight 140 lb Intake Visit Reasons: OV-left shoulder pain-follow up Intake Note: Haylie 52 yr old female presents today for her follow up visit for her Myofascial pain, strain of rotator cuff of left shoulder & cervical radiculitis s/p therapy. States she recently had gallbladder sx and was not able to do any P.T. She explaines she has also been out of work, her pain is still there but is not as bad and would like to discuss trigger point injections. Allergies azithromycin [AZITHROMYCIN] Allergy (Unknown, Verified 03/19/23 11:27) RASH, LIP SWELLING Medication List - Last Reconciled 03/19/23 by Marilyn Coker MD albuterol sulfate 0.63 mg (3 mL) inhalation Q4-6H PRN albuterol sulfate 90 mcg/actuation (Ventolin HFA) 2 puffs inhalation Q4-6H PRN cholecalciferol (vitamin D3) 25 mcg PO DAILY 90 days diclofenac sodium 1% (Arthritis Pain (diclofenac)) 2 grams topical QID PRN ibuprofen 800 mg PO Q8H PRN ibuprofen 400 mg PO Q8H PRN lidocaine 4% (Aspercreme (lidocaine)) 2 patches topical DAILY PRN loratadine (Allergy Relief (loratadine)) 10 mg PO DAILY 90 days lorazepam 0.5 mg PO DAILY PRN 10 days miscellaneous medical supply 1 ea miscellaneous DAILY omeprazole 20 mg PO DAILY 90 days sennosides (Natural Senna Laxative) 8.6 mg PO BEDTIME HPI HPI Comments History of Present Illness Details She saw ortho Wendy JOHNSON shoulder pain, MRI as below. Referred to me for further evaluation of neck pain. 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 Had injection for shoulder with ortho, few months ago. Had dizzy with injection. No PT for shoulder - but was called yesterday, no appointment yet. Neck pain just started few months ago. She lifted arm to lift a TV, suddenly struck pain to left upper back/neck. Was already having shoulder pain already. Sometimes gets numbness on fingers, also recently. ROS - mentioned swollen ankle, seeing PCP for this Has not worked since I saw her so feeling better. Gallbladder surgery 02/28/23, still on restrictions. Going for left knee surgery Dr. Castellano 04/04/23, tear lateral meniscus. Has not been able to do PT for upper back pain. Shoulder is the same. Upper back is the same. Still pulls with activity. Has avoided heavy lifting so feels better in a way. [facility] Medical History Transaminitis Right shoulder pain Left shoulder pain Lumbar pain Polyarthralgia Physical exam Mild intermittent asthma, uncomplicated Chronic GERD Immunizations incomplete Surgical History History of hysterectomy Family History Mother No problems noted. Father No problems noted. 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 Patient was appropriately conversant and oriented. Good historian. MSK: Inspection reveals appropriate head and neck positioning. Tightness and tender on left upper trapezius. Cervical ROM was full. Spurling's sign negative. Positive left Rhoades sign. Positive left empty can sign. Negative speed's test. Pain with left abduction of shoulder pain Strength is 5/5 in all muscle groups tested. No increased tone noted. Neurological: Neurologic examination of the upper and lower extremities was nonfocal with intact sensation, muscle stretch reflexes and without focal motor deficits . Luis?s negative bilaterally. Gait is antalgic without loss of balance. Results Reviewed Results Reviewed: MR SHOULDER WITHOUT CONTRAST, LEFT CLINICAL INFORMATION: Left shoulder pain despite conservative management. Evaluate for a rotator cuff tendon tear. COMPARISON: Left shoulder radiographs dated 10/04/2022. TECHNIQUE: Multisequence MR imaging of the left shoulder was obtained without contrast on a high-field strength scanner. FINDINGS: Evaluation limited secondary to patient motion. ROTATOR CUFF: Supraspinatus and infraspinatus tendinosis. The supraspinatus appears attenuated anteriorly which could indicate bursal surface partial tearing. No definite full-thickness rotator cuff tendon tear. Evaluation is somewhat limited due to patient motion. No muscle atrophy or fatty infiltration. BICEPS: Intact. CORACOACROMIAL ARCH: The undersurface of the acromion is curved with no subacromial spur. Moderate acromioclavicular osteoarthritis. Fluid and edema within the subacromial-subdeltoid bursa, consistent mild bursitis. LABRUM/CAPSULE: No labral tear. Intact joint capsule. GLENOHUMERAL JOINT/MARROW: Intact articular cartilage. No acute osseous injury. Trace glenohumeral joint effusion. MR/MR shoulder LT wo con IMPRESSION: 1. Supraspinatus and infraspinatus tendinosis. Attenuation of the supraspinatus tendon anteriorly which could indicate bursal surface partial tearing. No definite full-thickness rotator cuff tendon tear. Evaluation somewhat limited due to patient motion. 2. Moderate acromioclavicular osteoarthritis. 3. Mild subacromial-subdeltoid bursitis. 4. Trace glenohumeral joint effusion. Ordering Physician: Marilyn Johnson Date of Service: 02/12/23 Procedure(s): XR cervical spine 3V Accession Number(s): [id number] cc: Rebeca Houston MD; Marilyn Johnson~ EXAMINATION: XR CERVICAL SPINE CLINICAL INFORMATION: Cervical radiculopathy. COMPARISON: None available. TECHNIQUE: Frontal, odontoid and lateral views of the cervical spine were obtained. FINDINGS: Vertebral body heights and alignment are normal. At C3-C4, C4-C5 and C6-C7, there is mild posterior disc space narrowing. The remaining disc spaces are well-maintained. No acute fracture or spondylolisthesis is seen. This multi-level mild to moderate cervical spondylosis, most pronounced at C4-C5 and C6-C7. The posterior elements are intact. The dens is intact. No prevertebral soft tissue swelling is seen. XR/XR cervical spine 3V IMPRESSION: 1. There is mild degenerative disc disease at C3-C4, C4-C5 and C6-C7. 2. There is multi-level mild to moderate cervical spondylosis. I reviewed records from the following: Dr. Castellano - left knee pain Wendypriyanka Wrightsal JOHNSON - shoulder pain She was wearing a left ankle boot today. Xray was unremarkable. Assessment & Plan Assessment & Plan (1) Myofascial pain: Code(s): M79.18 - Myalgia, other site (2) Strain of rotator cuff of left shoulder: Code(s): S46.012A - Strain of muscle(s) and tendon(s) of the rotator cuff of left shoulder, initial encounter Plan Continued left myofascial pain, secondary, in the setting of ongoing left rotator cuff tendinitis. No signs of cervical myelopathy on exam. She has not done PT due to recent GB surgery and now pending left knee surgery in 2 weeks. I advised that she can alternate ice and heat, and gently massage left upper trapezius at home (she can rub it in). Advised to do ROM exercises for left shoulder at home, demonstrated to her how. Would not do injection today given 2 surgeries. Also patient had poor reaction to previous steroid injection given by Orthopedics to the shoulder. She would benefit from rehab/PT after knee surgery. Assessment and plan discussed with patient, and patient was agreeable. All questions were answered thoroughly. Marilyn Coker MD, REYES Board Certified, [place] [employer] and [employer] (ABPMR) Board Certified, [place] [employer] Electro[employer] (ABEM) Coding Level of Care Code Est Pt Level 3 (11466) Diagnoses Myofascial pain M79.18 Strain of rotator cuff of left shoulder S46.012A
== END 2023-03-19 11:40 | disposition home or self-care (01) ==
PROVIDERS: PCP Internal Medicine; Visit Provider Physical Medicine & Rehabilitation
DX: M79.18 Myalgia, other site (principal); S46.012A Strain of muscle(s) and tendon(s) of the rotator cuff of left shoulder, initial encounter
CPT/HCPCS: 99213

== ENCOUNTER → 2023-03-19 11:08 | Outpatient (BNVA) | payer OTHER, SELFPAY | PROVIDERS: PCP Internal Medicine; Visit Provider Physical Medicine & Rehabilitation | DX: M79.18 Myalgia, other site (principal); S46.012D Strain of muscle(s) and tendon(s) of the rotator cuff of left shoulder, subsequent encounter | CPT/HCPCS: 99212 ==

== ENCOUNTER 2023-04-04 08:22 | Day surgery (SDC) | payer OTHER, SELFPAY ==
[2023-04-01 16:13] VITALS: BMI 25.0
[2023-04-04 09:12] VITALS: BP 136/88; PULSE 90; RESP 15; TEMP 36.4; O2SAT 97
[2023-04-04] MEDS: Lactated Ringers 1,000 ML 100 ML IVCONT (09:14)
--- NOTE | 2023-04-04 09:20 | HO.ANESPROP2 ---
Documented by User: Domi Elizabeth NP 04/03/23 09:36 HPI - Anesthesia Eval Consult details Narrative: 52yo F for Left Knee Arthroscopy with partial lateral menisectomy PMFSH Active Problems Active Problems: All Active Problems (Updated 02/12/23 @ 10:10 by Marilyn Coker MD) Biliary dyskinesia (Acute) Myofascial pain (Acute) Cervical radiculitis (Acute) Left ankle pain (Acute) Left knee pain (Acute) Cervical radiculopathy (Acute) Cough (Acute) Tear of medial meniscus of left knee (Acute) Painful arc syndrome of right shoulder (Acute) Painful arc syndrome of left shoulder (Acute) Adult general medical exam (Acute) Screening for breast cancer (Acute) Insomnia (Acute) Eye exam, routine (Acute) Screening for hyperlipidemia (Acute) Screening for colon cancer (Acute) Asthma exacerbation (Acute) Bilateral knee pain (Acute) Bilateral shoulder pain (Acute) Lumbar pain (Acute) Bony sclerosis (Acute) Constipation by delayed colonic transit (Acute) CHAS (generalized anxiety disorder) (Acute) Skin lesion (Acute) UTI (urinary tract infection) (Acute) Rash on lips (Acute) Lip swelling (Acute) Upper respiratory tract infection (Acute) Transaminitis (Acute) Right shoulder pain (Acute) Left shoulder pain (Acute) Lumbar pain (Acute) Polyarthralgia (Acute) Physical exam (Acute) Mild intermittent asthma, uncomplicated (Acute) Chronic GERD (Acute) Immunizations incomplete (Acute) Past Medical History Medical History Transaminitis Right shoulder pain Left shoulder pain Lumbar pain Polyarthralgia Physical exam Mild intermittent asthma, uncomplicated Chronic GERD Immunizations incomplete Family History Family History Mother No problems noted. Father No problems noted. Family history of problems with anesthesia: No Surgical History Surgical History (Updated 04/01/23 @ 16:23 by Kate Gonzalez) Hx laparoscopic cholecystectomy History of hysterectomy History of Problems with Anesthesia: No Social History Social History Household Members Other:: lives alone Housing: House Are you a primary home health care provider to a significant other at home: No Do you presently have visiting nurse or other home services: No Alcohol intake: current Alcohol intake frequency: a few times a month Alcohol type: beer Comment: counts correct Patient Tobacco Use Status: Current everyday Tobacco user Tobacco use type: Cigarette Cigarette Packs Per Day: 1 Cigarettes Per Day: 5 Years Smoked: 20 Smoked in Last 30 Days: Yes e-Cigarette/Vaping Use: Never Used Second Hand Smoke Exposure: No Use of substances other than those prescribed or required for medical reasons: Yes Substance Use Frequency: Daily Are you DNR?: No Advance Directives: No Advance Directives Information Provided: Yes Recently lost weight without trying: No Eating poorly because of decreased appetite: No Nutrition Risks: No Nutritional Risk service: No Current occupational status: employed 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 Current occupational exposures/hazards: No Cognitive needs: No Hearing needs: No Vision needs: No Meds Allergies Allergy/AdvReac Type Severity Reaction Status Date / Time azithromycin [AZITHROMYCIN] Allergy Unknown RASH, LIP Verified 03/19/23 11:27 SWELLING Active Medications: Current Medications Cefazolin Sodium/Dextrose (Ancef) 2 gm in 50 mls @ 100 mls/hr IV PREOP ONE Stop: 04/04/23 05:38 Exam Height,Weight and Vital Signs: Height 5 ft 3 in Weight 63.957 kg Pertinent Lab Results Pertinent Lab Results: Laboratory Tests 08/29/22 16:14 WBC 11.9 H Hgb 14.9 Hct 44.0 Plt Count 303 Sodium 142 Potassium 4.0 D Chloride 108 Carbon Dioxide 22 BUN 9 Creatinine 0.76 Narrative Narrative: EKG 04/2022 Vent. Rate : 091 BPM Atrial Rate : 091 BPM P-R Int : 136 ms QRS Dur : 070 ms QT Int : 380 ms P-R-T Axes : 055 035 025 degrees QTc Int : 467 ms Sinus rhythm with Premature atrial complexes with Aberrant conduction Otherwise normal ECG When compared with ECG of 13-MAY-2010 16:32, Aberrant conduction is now Present Assessment and Plan Assessment Anesthesia Assessment: Chart Reviewed Final Anesthetic Review Family History of Problems with Anesthesia: No History of Problems with Anesthesia: No Documented by User: Pooja Temple DO 04/04/23 10:03 HPI - Anesthesia Eval Consult details Narrative: 52yo F for Left Knee Arthroscopy with partial lateral menisectomy Smoker. Marijuana use. FOR[facility]LY [facility], [facility] Past Medical History Medical History Transaminitis Right shoulder pain Left shoulder pain Lumbar pain Polyarthralgia Physical exam Mild intermittent asthma, uncomplicated Chronic GERD Immunizations incomplete Family History Family History Mother No problems noted. Father No problems noted. Family history of problems with anesthesia: No Surgical History Surgical History (Updated 04/01/23 @ 16:23 by Kate Gonzalez) Hx laparoscopic cholecystectomy History of hysterectomy History of Problems with Anesthesia: No Social History Social History Household Members Other:: lives alone Housing: House Are you a primary home health care provider to a significant other at home: No Do you presently have visiting nurse or other home services: No Alcohol intake: current Alcohol intake frequency: a few times a month Alcohol type: beer Comment: counts correct Patient Tobacco Use Status: Current everyday Tobacco user Tobacco use type: Cigarette Cigarette Packs Per Day: 1 Cigarettes Per Day: 5 Years Smoked: 20 Smoked in Last 30 Days: Yes e-Cigarette/Vaping Use: Never Used Second Hand Smoke Exposure: No Use of substances other than those prescribed or required for medical reasons: Yes Substance Use Frequency: Daily Are you DNR?: No Advance Directives: No Advance Directives Information Provided: Yes Recently lost weight without trying: No Eating poorly because of decreased appetite: No Nutrition Risks: No Nutritional Risk service: No Current occupational status: employed 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 Current occupational exposures/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: No Cognitive needs: No Hearing needs: No Vision needs: No Meds Allergies Allergy/AdvReac Type Severity Reaction Status Date / Time azithromycin [AZITHROMYCIN] Allergy Unknown RASH, LIP Verified 03/19/23 11:27 SWELLING Exam Exam Date and Time: April 04, 2023 0920 Height,Weight and Vital Signs: Height 5 ft 3 in Weight 63.957 kg Vital Signs Temperature 97.5 F 04/04/23 09:12 Pulse Rate 90 04/04/23 09:12 Respiratory Rate 15 04/04/23 09:12 Blood Pressure 136/88 04/04/23 09:12 Pulse Oximetry 97 04/04/23 09:12 Oxygen Delivery Method Room Air 04/04/23 09:12 Temperature 97.5 F 04/04/23 09:12 Pulse Rate 90 04/04/23 09:12 Respiratory Rate 15 04/04/23 09:12 Blood Pressure 136/88 04/04/23 09:12 Pulse Oximetry 97 04/04/23 09:12 Oxygen Delivery Method Room Air 04/04/23 09:12 Airway Mallampati Class: I TM Dist: >3cm Neck ROM: Full Loose/Missing/Broken Teeth: No Heart: S1S2 Lungs: CTAB Assessment and Plan Assessment Anesthesia Assessment: Anesthesia Plan Discussed and Chart Reviewed Final Anesthetic Review Family History of Problems with Anesthesia: No History of Problems with Anesthesia: No NPO: Yes ASA Class: II Final Preanesthetic Review: No Changes in Pt Med Stat, Meds/Allgs Chart Reviewed, Consent Obtained/Reviewed and Anes Risks/Benef Reviewed Patient Risk: Low Procedure Risk: Low Anesthetic Plan Anesthetic Plan: GA and Agree w/ Assess. and Plan Disposition: Standard PACU
[2023-04-04 11:39] VITALS: BP 132/94; PULSE 92; RESP 12; TEMP 36.7; O2SAT 95
--- NOTE | 2023-04-04 11:42 | P.BOP_ITS ---
Brief Operative Note Date of Service: 04/04/23 Pre-op diagnosis: Left knee medial meniscus tear and left knee lateral meniscus tear Post-op diagnosis: same Procedure: Left knee diagnostic arthroscopy with left knee arthroscopic partial medial and lateral meniscectomies Implants: none Surgeon: Bryant Castellano MD Anesthesia: GLMA Was an Order Checker Packer Processer used for this Procedure?: No Estimated blood loss (mL): 10 Pathology: none sent Condition: stable Disposition: PACU
--- NOTE | 2023-04-04 11:42 | P.OP_ITS ---
Operative Note Operative Note Date of Service: 04/04/23 Narrative: After the patient was identified as Haylie Alicea and her left knee was initialed by myself they were brought to the operating room where general anesthesia was induced by the anesthesiologist in routine fashion. The patient was given 2 g of IV Ancef preoperatively for infection prophylaxis. The patient's left lower extremity was prepped and draped in sterile fashion. A formal time-out was completed. Marcaine was injected into the planned incision sites as well as the patient's left knee joint. A #11 scalpel blade was used to make an anterolateral portal 1 cm proximal to the joint line and 1 cm lateral to the p atellar tendon. Blunt trocar technique was used to enter the suprapatellar pouch with the knee in extension. Diagnostic arthroscopy showed multiple bands of thickened plica which would be excised at the end of the procedure. There were no loose bodies or abnormalities found in either the medial or lateral gutters. The articular surface of the patella showed minimal degenerative changes. The trochlear groove articular surface showed minimal degenerative changes. The patient's knee was flexed to 45 degrees and a valgus force was placed upon it. The medial compartment was entered. An anteromedial portal was made 1 cm proximal to the joint line and 1 cm medial to the patellar tendon. Probing of the medial meniscus showed a radial tear of the anterior horn. A partial medial meniscectomy was performed using the arthroscopic shaver. Following the partial meniscectomy the remainder of the meniscus tissue was stable. There were minimal degenerative changes of the medial femoral condyle as well as minimal degenerative changes of the medial tibial plateau. The patient's knee was placed into a neutral position. There was no injury to the anterior cruciate ligament. The patient's knee was then placed in the figure of 4 position and the lateral compartment was entered. There was a radial tear of the anterior horn of the lateral meniscus. A partial lateral meniscectomy was performed using the arthroscopic shaver. Following the partial meniscectomy the remainder of the meniscus tissue was stable. There were minimal degenerative changes of the lateral femoral condyle and lateral tibial plateau. The patient's knee was once again brought into extension and the suprapatellar pouch was entered. The arthroscopic shaver and the ArthroCare Wand were used to excise the thickened bands of plica. The knee joint was irrigated and then drained. All arthroscopic instruments were removed. The 2 portals were closed with 3-0 nylon interrupted suture. The knee joint was injected with Marcaine. Dry sterile dressing and Jesse bandages were placed over the patient's knee. The patient was awoken and extubated in the operating room. The patient was transferred to the recovery room in stable condition.
[2023-04-04 11:44] VITALS: BP 142/96; PULSE 88; RESP 15; O2SAT 96
[2023-04-04 11:49] VITALS: BP 146/99; PULSE 87; RESP 16; O2SAT 96
[2023-04-04] MEDS: cefTRIAXone sodium 1 GM in 0.9 % Sodium Chloride 50 ML IV (11:55)
[2023-04-04 11:58] VITALS: BP 151/98; PULSE 73; RESP 16; O2SAT 96
[2023-04-04 12:16] VITALS: BP 165/97; PULSE 72; RESP 17; TEMP 36.2; O2SAT 96
== END 2023-04-04 12:40 | disposition home or self-care (01) ==
PROVIDERS: PCP Internal Medicine; Visit Provider Orthopaedic Surgery
PROC: (CPT 29870; principal; 2023-04-04 10:10)
DX: S83.282A Other tear of lateral meniscus, current injury, left knee, initial encounter (principal); X50.9XXA Other and unspecified overexertion or strenuous movements or postures, initial encounter; Y93.F9 Activity, other caregiving; Y92.239 Unspecified place in hospital as the place of occurrence of the external cause; Y99.0 Civilian activity done for income or pay
CPT/HCPCS: 29880; J0171; J0690; J0696; J1100; J1885; J2405; J2704; J2795; J3010

== ENCOUNTER → 2023-04-04 08:22 | Outpatient (BNV) | payer OTHER, SELFPAY | PROVIDERS: PCP Internal Medicine; Visit Provider Orthopaedic Surgery | DX: S83.242A Other tear of medial meniscus, current injury, left knee, initial encounter (principal); S83.282A Other tear of lateral meniscus, current injury, left knee, initial encounter | CPT/HCPCS: 29880 ==

== ENCOUNTER 2023-04-17 09:04 | Outpatient (AMB) | payer OTHER, SELFPAY ==
--- NOTE | 2023-04-17 09:12 | A.OFFVIS_ITS ---
Intake Intake Visit Reasons: PO-Lt Knee 04/04/23 Intake Note: Haylie a 52 year old female presents today for a post operative visit of LT knee on 04/04/23 Patient reports she is doing good. She states she has not gone to physical therapy but is doing her own exercises that she found on the internet. She has no concerns at this time. Allergies azithromycin [AZITHROMYCIN] Allergy (Unknown, Verified 04/17/23 09:13) RASH, LIP SWELLING HPI PO-Lt Knee 04/04/23 HPI Details 52-year-old female who presents in the o ice today 13 days status post left knee arthroscopic partial medial and lateral meniscectomies, which was performed on 04/04/[address] Castellano. The patient reports she is doing good. She claims she has not been working with physical therapy, but is doing exercises at home that she found on the internet. She has no concerns while in the office today. [facility] Medical History Transaminitis Right shoulder pain Left shoulder pain Lumbar pain Polyarthralgia Physical exam Mild intermittent asthma, uncomplicated Chronic GERD Immunizations incomplete Surgical History Hx laparoscopic cholecystectomy History of hysterectomy Family History Mother No problems noted. Father No problems noted. 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 Sutures are intact. No surrounding erythema or drainage. No signs of infection. ROM is 0-120 degrees. NVI. Assessment & Plan Assessment & Plan (1) S/P left knee arthroscopy: Comment: Left knee arthroscopic partial medial and lateral meniscectomies 04/04/2023 Dr. Bryant Castellano Code(s): Z98.890 - Other specified postprocedural states Plan Ms. Alicea is a 52-year-old female who presents in the office today 13 days status post left knee arthroscopic partial medial and lateral meniscectomies, which was performed on 04/04/[address] Castellano. The patient reports she is doing good. She claims she has not been working with physical therapy, but is doing exercises at home that she found on the internet. She has no concerns while in the office today. Sutures were removed and steri-stripes were applied. The patient is performing her own exercises that she researched. However, she has full painless ROM and I do not believe that formal physical therapy will be a benefit to the patient at this time. She may return to normal activities as tolerated. Follow up will be PRN, or sooner if needed. Patient Instructions: Scribed by Nano Ge medical records secretary, for Wendy Madsen PA-C on 04/17/2023 at 9:11 am, EST. Coding Level of Care Code Global (36589) Diagnoses S/P left knee arthroscopy Z98.890
== END 2023-04-17 09:30 | disposition home or self-care (01) ==
PROVIDERS: PCP Internal Medicine; Visit Provider Physician Assistant
DX: Z98.890 Other specified postprocedural states (principal)
CPT/HCPCS: 99024

== ENCOUNTER → 2023-04-17 09:04 | Outpatient (BNVA) | payer OTHER, SELFPAY | PROVIDERS: PCP Internal Medicine; Visit Provider Physician Assistant | DX: Z47.89 Encounter for other orthopedic aftercare (principal); Z98.890 Other specified postprocedural states | CPT/HCPCS: 99212 ==

== ENCOUNTER 2023-05-12 11:11 | Outpatient (AMB) | payer OTHER, SELFPAY ==
[2023-05-12 11:49] VITALS: BP 139/94; PULSE 81; BMI 25.5
--- NOTE | 2023-05-12 11:49 | MHC.OFFVIS ---
Intake Vital Signs 05/12/23 11:49 Height 5 ft 3 in Weight 143 lb 11.862 oz BMI 25.5 BP 139/94 H Blood Pressure Location Lt brachial Position Sitting Pulse 81 Intake Visit Reasons: 2mnth Intake Note: Patient presents to in officer visit today in 2 months follow up of CC: Patient states I'm ok and denies having any GI symptoms today. Hospital Admissions Officer Required: No Accompanied by: Self / Same As Patient Allergies azithromycin [AZITHROMYCIN] Allergy (Unknown, Verified 05/12/23 11:51) RASH, LIP SWELLING HPI 2mnth HPI Details LAST VISIT: Chronic GERD Biliary dyskinesia Constipation Plan HIDA scan confirmed biliary dyskinesia. Patient will see a surgeon today. Will schedule surgery. Patient was encouraged to eat smaller meals avoid anything high in fat. Continue take senna daily and omeprazole every morning half an hour before breakfast. Patient was encouraged to increase fluid intake and activity to promote better bowel motility. I will see patient in 2 months, sooner on as needed basis. Patient is agreeable to this plan and verbalizes understanding of instructions. She was given the opportunity to ask questions and all questions answered. ? Thank you for allowing me to participate in her care Orders Referrals General Surgery Referral K82.8 Medications Refilled sennosides (Natural Senna Laxative) 8.6 mg PO BEDTIME 90 tabs 3RF constipation K59.00 omeprazole 20 mg PO DAILY 90 days 90 caps 3RF: TODAY'S VISIT Patient is here today for follow-up and to discuss going for colonoscopy and upper endoscopy. Isn't had cholecystectomy on March 06 due to biliary dyskinesia. Patient reports that she has been feeling much better now states that her symptoms of epigastric pain postprandially and abdominal bloating completely resolved. Patient reports that she is moving her bowels well. Denies any postprandial diarrhea or abdominal cramping. Patient does admit that occasionally she will drink beer and eat food when she is meeting friends for dinner, however she states that it does not happen that often. Patient is trying to eat better and healthier. Patient is trying to quit smoking. Patient reports occasional dyspepsia without dysphagia or odynophagia. Denies any melena, hematochezia, unintentional weight loss or ribbon like stools. In March patient had knee surgery and is doing well. Patient denies any issues with anesthesia. No history of sleep apnea. Not on any anticoagulation medication. [facility] Medical History Transaminitis Right shoulder pain Left shoulder pain Lumbar pain Polyarthralgia Physical exam Mild intermittent asthma, uncomplicated Chronic GERD Immunizations incomplete Surgical History Hx laparoscopic cholecystectomy History of hysterectomy Family History Mother No problems noted. Father No problems noted. 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 Current occupational exposures/hazards: No Cognitive needs: No Hearing needs: No Vision needs: No Review of Systems Const Denies weight gain and Denies weight loss ENT Reports no additional complaints, Denies dysphagia and Denies odynophagia Card Reports no additional complaints Resp Reports no additional complaints GI Denies abdominal pain, Denies belching, Denies melena, Reports bloating, Denies change in bowel habits, Denies dysphagia, Denies excessive flatus, Denies dyspepsia, Denies heartburn, Denies diarrhea, Denies loose stools, Denies nausea, Denies odynophagia and Denies vomiting Reports no additional complaints Musc Reports no additional complaints Neuro Reports no additional complaints Psych Reports no additional complaints Endo Reports no additional complaints Physical Exam Vital Signs: Last Vital Signs Pulse 81 05/12/23 11:49 BP 139/94 H 05/12/23 11:49 BMI result Body Mass Index 25.5 Const General: healthy appearing, no acute distress and well developed Nutritional Appearance: well nourished Orientation/consciousness: patient oriented x3 Resp Effort & Inspection: normal respiratory effort, able to speak in complete sentences, no tracheal deviation and symmetric chest movement Auscultation: clear to auscultation bilaterally Cardio Rate: regular rate GI Inspection: Yes normal to inspection and No distended Palpation (GI): Soft to palpation, not firm, nontender and No hepatosplenomegaly present Auscultation: normal bowel sounds General: Yes no CVA tenderness Back/Spine/Pelvis Back: no CVA tenderness Skin General skin exam: elasticity normal, turgor normal and dry skin Neuro General: patient oriented x3 Psych Appearance: grossly normal Mental Status: mental status grossly normal Assessment & Plan Assessment & Plan (1) Chronic GERD: Code(s): K21.9 - Gastro-esophageal reflux disease without esophagitis (2) Biliary dyskinesia: Code(s): K82.8 - Other specified diseases of gallbladder (3) Constipation: Code(s): K59.00 - Constipation, unspecified Qualifiers: Constipation type: slow transit constipation Qualified Code(s): K59.01 - Slow transit constipation (4) Status post laparoscopic cholecystectomy: Code(s): Z90.49 - Acquired absence of other specified parts of digestive tract Plan Patient was encouraged to increase fluid intake and activity to promote better bowel motility. Patient will take omeprazole daily. Avoid dietary triggers and late night snacking. Patient will be sent for upper endoscopy to rule out gastritis, esophagitis, gastric or peptic ulcer, patient will be scheduled for colonoscopy the same time. What to expect before during and after procedure discussed with patient. Patient will follow-up in the office after the procedure, sooner on as needed basis. Patient is agreeable to this plan and verbalizes understanding of instructions. She was given the opportunity to ask questions and all questions answered. Thank you for allowing me to participate in her care Medications: New polyethylene glycol 3350 (Miralax) As directed by gastroenterology department at [facility] 238 grams PO ONCE 238 grams 0RF Z12.11 - Encounter for screening for malignant neoplasm of colon bisacodyl (Dulcolax (bisacodyl)) take 4 tabs at noon the day before your colonoscopy 20 mg (4 x 5 mg) PO ONCE 4 tabs 0RF 1 day Z12.11 - Encounter for screening for malignant neoplasm of colon Refilled omeprazole 20 mg PO DAILY 90 caps 3RF 90 days Coding Level of Care Code Est Pt Level 4 (13955) Diagnoses Chronic GERD K21.9 Biliary dyskinesia K82.8 Slow transit constipation K59.01 Constipation type: slow transit constipation Status post laparoscopic cholecystectomy Z90.49 Time Spent (min) 35 Comment 25 minutes spent with patient and additional 10 minutes spent reviewing her records
== END 2023-05-12 12:17 | disposition home or self-care (01) ==
PROVIDERS: PCP Internal Medicine; Visit Provider Nurse Practitioner Family
DX: K21.9 Gastro-esophageal reflux disease without esophagitis (principal); K82.8 Other specified diseases of gallbladder; K59.01 Slow transit constipation; Z90.49 Acquired absence of other specified parts of digestive tract
CPT/HCPCS: 99214

== ENCOUNTER → 2023-05-12 11:11 | Outpatient (BNVA) | payer OTHER, SELFPAY | PROVIDERS: PCP Internal Medicine; Visit Provider Nurse Practitioner Family | DX: K21.9 Gastro-esophageal reflux disease without esophagitis (principal); K82.8 Other specified diseases of gallbladder; K59.01 Slow transit constipation; Z90.49 Acquired absence of other specified parts of digestive tract | CPT/HCPCS: 99212 ==

== ENCOUNTER 2023-08-26 10:03 | Day surgery (SDC) | payer OTHER, SELFPAY ==
[2023-08-26 10:19] VITALS: BP 106/83; PULSE 95; RESP 18; TEMP 36.4; O2SAT 97; BMI 25.6
[2023-08-26] MEDS: Lactated Ringers 1,000 ML 50 ML IVCONT (10:41)
--- NOTE | 2023-08-26 10:52 | MHC.SHP ---
Pre-Procedural Eval Section A - 24 Hr Update-Section A only Date of Service: 08/26/23 Section B - Complete if H&P > 30 days Chief Complaint: Gastro-esophageal reflux disease without esophagit Relevant Family History (Specify if Yes): No Relevant Social History: None Present Medications: see Short Stay Collaborative assessment Medical History: Significant History (Transaminitis Right shoulder pain Left shoulder pain Lumbar pain Polyarthralgia Physical exam Mild intermittent asthma, uncomplicated Chronic GERD Immunizations incomplete) History of Previous Operations: Relevant previous surgery/procedure and date(s) (Hx laparoscopic cholecystectomy History of hysterectomy) Allergies: Allergies Allergy/AdvReac Type Severity Reaction Status Date / Time azithromycin [AZITHROMYCIN] Allergy Unknown RASH, LIP Verified 05/12/23 11:51 SWELLING Review of Systems Sugical H&P ROS: Negative: Constitution, Cardiovascular, Respiratory, Neurological, Psychiatric, Hem-Onc, Allergic/Immunologic, Gastrointestinal, Genitourinary, Musculoskeletal, Integumentary, Endocrine and Eyes/Ears/Nose/Throat Exam Surgical H&P Exam: Normal: HEENT, Normal: Heart, Normal: Lungs, Normal: Extremities, Normal: Abdomen, Normal: Skin and Normal: Neurological Plan Diagnosis/Plan: Unchanged I have reviewed the history and physical and performed a pertinent physical examination on my patient. No changes have occurred unless specified. Time Spent With Patient Time: Total time managing care of this patient today ____ minutes.
--- NOTE | 2023-08-26 11:41 | HO.ANESPROP2 ---
HPI - Anesthesia Eval Consult details Narrative: 52 F for egd colo PMFSH Active Problems Active Problems: All Active Problems S/P left knee arthroscopy (Acute) Biliary dyskinesia (Acute) Myofascial pain (Acute) Cervical radiculitis (Acute) Left ankle pain (Acute) Left knee pain (Acute) Cervical radiculopathy (Acute) Cough (Acute) Tear of medial meniscus of left knee (Acute) Painful arc syndrome of right shoulder (Acute) Painful arc syndrome of left shoulder (Acute) Adult general medical exam (Acute) Screening for breast cancer (Acute) Insomnia (Acute) Eye exam, routine (Acute) Screening for hyperlipidemia (Acute) Screening for colon cancer (Acute) Asthma exacerbation (Acute) Bilateral knee pain (Acute) Bilateral shoulder pain (Acute) Lumbar pain (Acute) Bony sclerosis (Acute) Constipation by delayed colonic transit (Acute) CHAS (generalized anxiety disorder) (Acute) Skin lesion (Acute) UTI (urinary tract infection) (Acute) Rash on lips (Acute) Lip swelling (Acute) Upper respiratory tract infection (Acute) Transaminitis (Acute) Right shoulder pain (Acute) Left shoulder pain (Acute) Lumbar pain (Acute) Polyarthralgia (Acute) Physical exam (Acute) Mild intermittent asthma, uncomplicated (Acute) Chronic GERD (Acute) Immunizations incomplete (Acute) Past Medical History Medical History Transaminitis Right shoulder pain Left shoulder pain Lumbar pain Polyarthralgia Physical exam Mild intermittent asthma, uncomplicated Chronic GERD Immunizations incomplete Family History Family History Mother No problems noted. Father No problems noted. Family history of problems with anesthesia: No Surgical History Surgical History Hx of knee surgery Hx of esophagogastroduodenoscopy Hx laparoscopic cholecystectomy History of hysterectomy History of Problems with Anesthesia: No Social History Social History Household Members Other:: lives alone Housing: House Are you a primary neonatal intensive care unit nurse to a significant other at home: No Do you presently have visiting nurse or other home services: No Alcohol intake: current Alcohol intake frequency: holidays/special occasions only Alcohol type: beer Comment: counts correct Patient Tobacco Use Status: Current everyday Tobacco user Tobacco use type: Cigarette Cigarette Packs Per Day: 1 Cigarettes Per Day: 5 Years Smoked: 20 e-Cigarette/Vaping Use: Never Used Second Hand Smoke Exposure: No Substance Use Frequency: Chronic Longstanding Are you DNR?: No Advance Directives: No Advance Directives Information Provided: Yes service: No Current occupational status: employed 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 Current occupational exposures/hazards: No Cognitive needs: No Hearing needs: No Vision needs: No Meds Allergies Allergy/AdvReac Type Severity Reaction Status Date / Time azithromycin [AZITHROMYCIN] Allergy Unknown RASH, LIP Verified 05/12/23 11:51 SWELLING Active Medications: Current Medications Lactated Ringer's (Lr) 1,000 mls @ 50 mls/hr IVCONT .Q20H MATIAS Last Admin: 08/26/23 10:41 Dose: 50 mls/hr Exam Height,Weight and Vital Signs: Height 5 ft 3 in Weight 144 lb 7 oz Last Vital Signs Temp 97.6 F 08/26/23 10:19 Pulse 95 08/26/23 10:19 Resp 18 08/26/23 10:19 BP 106/83 08/26/23 10:19 Pulse Ox 97 08/26/23 10:19 O2 Del Method Room Air 08/26/23 10:19 Airway Mallampati Class: III TM Dist: >3cm Neck ROM: Full Loose/Missing/Broken Teeth: No Assessment and Plan Assessment Anesthesia Assessment: Anesthesia Plan Discussed and Chart Reviewed Final Anesthetic Review Family History of Problems with Anesthesia: No History of Problems with Anesthesia: No NPO: Yes ASA Class: II Final Preanesthetic Review: No Changes in Pt Med Stat, Meds/Allgs Chart Reviewed, Consent Obtained/Reviewed and Anes Risks/Benef Reviewed Patient Risk: Low Procedure Risk: Low Anesthetic Plan Anesthetic Plan: MAC: Disposition: Standard PACU
--- NOTE | 2023-08-26 12:14 | P.OPN-COLO_ITS ---
Colonoscopy Operative Note Operative Note Date of Service: 08/26/23 Narrative: Operative Information Procedure Description: EGD, Colonoscopy Indication: GERD, screening Anesthesia: MAC FLEXIBLE TRANSORAL UPPER GASTROINTESTINAL ENDOSCOPY AND COLONOSCOPY PROCEDURE NOTE UPPER ENDOSCOPY Consent: Indications for the procedure and potential complications of bleeding, perforation, reaction to medications and missed diagnosis were discussed with the patient and informed consent was obtained. Instrument: Olympus GIF H 190 J mid size upper endoscope Monitoring: Vital signs and clinical assessment, continuous EKG monitoring, Pulse oximetry, Carbon Dioxide monitoring and blood pressure monitoring were done throughout the procedure. Procedure: The patient was placed in the left lateral decubitis position and pre-procedure medications were administered and a bite block was placed. The endoscope was inserted into the mouth and advanced under direct vision to the third part of duodenum. A careful inspection was made as the upper endoscope was withdrawn including a retroflexed examination of the proximal stomach; Findings and interventions are described below. Findings: Larynx:normal Esophagus: GE junction at 40 cm, diaphragm hiatus at 40 cm, small island of salmon pink tissue at GEJ, bx taken, bx taken from distal, proximal esophagus Stomach: Mild erythema. Biopsies were obtained. Grade 2 flap valve on retroflexed examination of the cardia. Duodenum: Normal bulb and descending duodenum, Intervention: Biopsies as noted above, COLONOSCOPY Instrument: Olympus variable stiffness pediatric scope 190L Colonoscopy Monitoring: Vital signs and clinical assessment, continuous EKG monitoring, Pulse oximetry, Carbon Dioxide monitoring and blood pressure monitoring were done throughout the procedure. Colon withdrawal time was 7 minutes. Procedure: The patient was placed in the left lateral decubitis position and pre-procedure medications were administered. After a digital rectal examination of the ano-rectum, the video colonoscope was inserted into the rectum and advanced through the colon to the cecum/TI. The colonoscope was slowly withdrawn in a retrograde panoramic fashion and the colon mucosa was carefully examined including a retroflexed view of the rectum. Findings and interventions are described below. Procedure Difficulty:moderate Findings: Terminal Ileum-normal Cecum:normal Ascending Colon: normal Transverse Colon -normal Descending Colon:normal Sigmoid Colon: benign appearing lipoma noted in distal sigmoid measuring about 10 mm Rectum: Retroflexion with small internal hemorrhoids, grade I, 5-7 mm sessile polyp removed with cold snare Anorectum - normal Colon preparation: [place] Bowel Preparation Scale Right colon; 2 Transverse colon: 2 Left colon; 2 (0 = Unprepared colon segment with mucosa not seen due to solid stool that cannot be cleared. 1 = Portion of mucosa of the colon segment seen, but other areas of the colon segment not well seen due to staining, residual stool and/or opaque liquid. 2 = Minor amount of residual staining, small fragments of stool and/or opaque liquid, but mucosa of colon segment seen well. 3 = Entire mucosa of colon segment seen well with no residual staining, small fragments of stool or opaque liquid) Impression and Post Procedure Diagnosis: Endoscopy Findings: possible short segment barretts Colonoscopy Findings: colon polyp internal hemorrhoids Plan: Await Pathology results Repeat Colonoscopy in 5 years if adenomatous polyp, 10 yrs if hyperplastic or earlier if clinically indicated High fiber diet leaflet avoid straining at stool, epsom salts and sitz bath, anusol supps or cream GERD precautions Above findings were reviewed with the patient and relevant handouts were provided if indicated.
[2023-08-26 12:22] VITALS: BP 115/85; PULSE 90; RESP 16; TEMP 36.1; O2SAT 96
[2023-08-26 12:37] VITALS: BP 129/90; PULSE 77; RESP 16; TEMP 36.1; O2SAT 95
--- NOTE | 2023-08-26 16:25 | HO.ANESPROP2 ---
HPI - Anesthesia Eval Consult details Narrative: 52-year-old female here for EGD and colonoscopy PMF Active Problems Active Problems: All Active Problems S/P left knee arthroscopy (Acute) Biliary dyskinesia (Acute) Myofascial pain (Acute) Cervical radiculitis (Acute) Left ankle pain (Acute) Left knee pain (Acute) Cervical radiculopathy (Acute) Cough (Acute) Tear of medial meniscus of left knee (Acute) Painful arc syndrome of right shoulder (Acute) Painful arc syndrome of left shoulder (Acute) Adult general medical exam (Acute) Screening for breast cancer (Acute) Insomnia (Acute) Eye exam, routine (Acute) Screening for hyperlipidemia (Acute) Screening for colon cancer (Acute) Asthma exacerbation (Acute) Bilateral knee pain (Acute) Bilateral shoulder pain (Acute) Lumbar pain (Acute) Bony sclerosis (Acute) Constipation by delayed colonic transit (Acute) CHAS (generalized anxiety disorder) (Acute) Skin lesion (Acute) UTI (urinary tract infection) (Acute) Rash on lips (Acute) Lip swelling (Acute) Upper respiratory tract infection (Acute) Transaminitis (Acute) Right shoulder pain (Acute) Left shoulder pain (Acute) Lumbar pain (Acute) Polyarthralgia (Acute) Physical exam (Acute) Mild intermittent asthma, uncomplicated (Acute) Chronic GERD (Acute) Immunizations incomplete (Acute) Past Medical History Medical History Transaminitis Right shoulder pain Left shoulder pain Lumbar pain Polyarthralgia Physical exam Mild intermittent asthma, uncomplicated Chronic GERD Immunizations incomplete Family History Family History Mother No problems noted. Father No problems noted. Family history of problems with anesthesia: No Surgical History Surgical History Hx of knee surgery Hx of esophagogastroduodenoscopy Hx laparoscopic cholecystectomy History of hysterectomy History of Problems with Anesthesia: No Social History Social History Household Members Other:: lives alone Housing: House Are you a primary respiratory care technician to a significant other at home: No Do you presently have visiting nurse or other home services: No Alcohol intake: current Alcohol intake frequency: holidays/special occasions only Alcohol type: beer Comment: counts correct Patient Tobacco Use Status: Current everyday Tobacco user Tobacco use type: Cigarette Cigarette Packs Per Day: 1 Cigarettes Per Day: 5 Years Smoked: 20 e-Cigarette/Vaping Use: Never Used Second Hand Smoke Exposure: No service: No Current occupational status: employed 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 Current occupational exposures/hazards: No Cognitive needs: No Hearing needs: No Vision needs: No Meds Allergies Allergy/AdvReac Type Severity Reaction Status Date / Time azithromycin [AZITHROMYCIN] Allergy Unknown RASH, LIP Verified 05/12/23 11:51 SWELLING Exam Height,Weight and Vital Signs: Height 5 ft 3 in Weight 144 lb 7 oz Last Vital Signs Temp 97 F 08/26/23 12:37 Pulse 77 08/26/23 12:37 Resp 16 08/26/23 12:37 BP 129/90 H 08/26/23 12:37 Pulse Ox 95 08/26/23 12:37 O2 Del Method Room Air 08/26/23 12:37 Airway Mallampati Class: III TM Dist: >3cm Neck ROM: Full Loose/Missing/Broken Teeth: Yes Assessment and Plan Assessment Anesthesia Assessment: Anesthesia Plan Discussed and Chart Reviewed Final Anesthetic Review Family History of Problems with Anesthesia: No History of Problems with Anesthesia: No NPO: Yes ASA Class: II Final Preanesthetic Review: No Changes in Pt Med Stat, Meds/Allgs Chart Reviewed, Consent Obtained/Reviewed and Anes Risks/Benef Reviewed Patient Risk: Low Procedure Risk: Low Anesthetic Plan Anesthetic Plan: MAC: Disposition: Standard PACU
== END 2023-08-26 14:10 | disposition home or self-care (01) ==
PROVIDERS: PCP Internal Medicine; Visit Provider Internal Medicine Gastroenterology
PROC: (CPT 45385; principal; 2023-08-26 12:10)
DX: Z12.11 Encounter for screening for malignant neoplasm of colon (principal); K62.1 Rectal polyp; D17.5 Benign lipomatous neoplasm of intra-abdominal organs; K64.0 First degree hemorrhoids; K59.01 Slow transit constipation; K21.9 Gastro-esophageal reflux disease without esophagitis; K44.9 Diaphragmatic hernia without obstruction or gangrene; M25.50 Pain in unspecified joint; R74.01 Elevation of levels of liver transaminase levels; J45.20 Mild intermittent asthma, uncomplicated; Z79.899 Other long term (current) drug therapy; Z88.1 Allergy status to other antibiotic agents; Z90.49 Acquired absence of other specified parts of digestive tract; F17.210 Nicotine dependence, cigarettes, uncomplicated
CPT/HCPCS: 45385; 43239; 88305; 88313; 88342; J2704

== ENCOUNTER → 2023-08-26 10:03 | Outpatient (BNV) | payer OTHER, SELFPAY | PROVIDERS: PCP Internal Medicine; Visit Provider Internal Medicine Gastroenterology | DX: Z12.11 Encounter for screening for malignant neoplasm of colon (principal); K63.5 Polyp of colon; K64.0 First degree hemorrhoids; K21.9 Gastro-esophageal reflux disease without esophagitis | CPT/HCPCS: 43239; 45385 ==

== ENCOUNTER 2023-09-09 10:49 | Outpatient (AMB) | payer OTHER, SELFPAY ==
--- NOTE | 2023-09-09 10:56 | A.OFFVIS_ITS ---
Vital Signs 09/09/23 11:07 Height 5 ft 3 in Weight 144 lb 9.972 oz BMI 25.6 BP 128/92 H Blood Pressure Location Rt brachial Position Sitting Pulse 98 Pulse Source Pulse Oximeter Pulse Oximetry (%) 94 Oxygen Delivery Method Room Air Intake Visit Reasons: S/p egd/colon Intake Note: Haylie presents in office today for a scheduled post double s/p FUV CC; Pt states that she is here to discuss the results of her s/p. No complications or new concerns reported. Order Manager Required: No Allergies azithromycin [AZITHROMYCIN] Allergy (Unknown, Verified 09/09/23 10:57) RASH, LIP SWELLING HPI HPI S/p egd/colon: Details: LAST VISIT Chronic GERD Biliary dyskinesia Constipation Status post laparoscopic cholecystectomy Plan Patient was encouraged to increase fluid intake and activity to promote better bowel motility. Patient will take omeprazole daily. Avoid dietary triggers and late night snacking. Patient will be sent for upper endoscopy to rule out gastritis, esophagitis, gastric or peptic ulcer, patient will be scheduled for colonoscopy the same time. What to expect before during and after procedure discussed with patient. Patient will follow-up in the office after the procedure, sooner on as needed basis. Patient is agreeable to this plan and verbalizes understanding of instructions. She was given the opportunity to ask questions and all questions answered. ? Thank you for allowing me to participate in her care Medications New polyethylene glycol 3350 (Miralax) As directed by gastroenterology department at [facility] 238 grams PO ONCE 238 grams 0RF Z12.11 bisacodyl (Dulcolax (bisacodyl)) take 4 tabs at noon the day before your colonoscopy 20 mg (4 x 5 mg) PO ONCE 4 tabs 0RF 1 day Z12.11 Refilled omeprazole 20 mg PO DAILY 90 caps 3RF 90 days UPPER ENDOSCOPY AND COLONOSCOPY Findings: Larynx:normal Esophagus: GE junction at 40 cm, diaphragm hiatus at 40 cm, small island of salmon pink tissue at GEJ, bx taken, bx taken from distal, proximal esophagus Stomach: Mild erythema. Biopsies were obtained. Grade 2 flap valve on retroflexed examination of the cardia. Duodenum: Normal bulb and descending duodenum, Intervention: Biopsies as noted above, Findings: Terminal Ileum-normal Cecum:normal Ascending Colon: normal Transverse Colon -normal Descending Colon:normal Sigmoid Colon: benign appearing lipoma noted in distal sigmoid measuring about 10 mm Rectum: Retroflexion with small internal hemorrhoids, grade I, 5-7 mm sessile polyp removed with cold snare Anorectum - normal Colon preparation: [place] Bowel Preparation Scale Right colon; 2 Transverse colon: 2 Left colon; 2 (0 = Unprepared colon segment with mucosa not seen due to solid stool that cannot be cleared. 1 = Portion of mucosa of the colon segment seen, but other areas of the colon segment not well seen due to staining, residual stool and/or opaque liquid. 2 = Minor amount of residual staining, small fragments of stool and/or opaque liquid, but mucosa of colon segment seen well. 3 = Entire mucosa of colon segment seen well with no residual staining, small fragments of stool or opaque liquid) Impression and Post Procedure Diagnosis: Endoscopy Findings: possible short segment barretts Colonoscopy Findings: colon polyp internal hemorrhoids Plan: Await Pathology results Repeat Colonoscopy in 5 years if adenomatous polyp, 10 yrs if hyperplastic or earlier if clinically indicated High fiber diet leaflet avoid straining at stool, epsom salts and sitz bath, anusol supps or cream GERD precautions PATHOLOGY RESULTS Diagnosis A. Stomach, biopsy: Gastric antral and body mucosa with minimal chronic inactive gastritis; negative for H pylori, intestinal metaplasia and dysplasia. B. Esophagogastric junction, biopsy: Squamocolumnar mucosa with minimal chronic inactive inflammation; negative for intestinal metaplasia and dysplasia. C. Esophagus, distal, biopsy: Squamous mucosa with no specific change; no columnar mucosa present. D. Esophagus, proximal, biopsy: Squamous mucosa with increased intraepithelial lymphocytes (see comment). E. Colon, rectal polyp: Hyperplastic polyp. Comment: (D): Appearances are nonspecific reaction pattern that is nondiagnostic for microscopic esophagitis in the absence of other histologic findings. There is no evidence of eosinophilic esophagitis TODAY'S VISIT Patient is here today for follow-up and to discuss upper endoscopy and colonoscopy results. Patient denies any ill effects from the prep, anesthesia or procedure itself. Patient reports that she has been feeling fairly well. Reports that omeprazole is helping for the most part. Occasionally when patient will snack late at night she might have symptoms of acid reflux during the night time. Patient states that she is moving her bowels without any issues. Denies melena, hematochezia. Patient denies any dyspepsia, dysphagia or odynophagia. Reports frequent postprandial abdominal bloating depending on what she eats. One hyperplastic polyp found colonoscopy in 10 years, sooner if clinically necessary. Patient denies any family history of colorectal cancer. Patient however reports increase respiratory symptoms. Patient reports that she has to use her nebulizer machine more than usual. Frequent asthma attacks. Patient is not on any corticosteroid therapy. Has never seen supervisor spinning, however has been diagnosed with asthma and dealing with it for a long time. Symptoms worse this year. Patient admits that she stopped smoking just recently COUNTS INCLUDE 234 BEDS AT THE [facility] Medical History Transaminitis Right shoulder pain Left shoulder pain Lumbar pain Polyarthralgia Physical exam Mild intermittent asthma, uncomplicated Chronic GERD Immunizations incomplete Surgical History History of colonoscopy Hx of knee surgery Hx of esophagogastroduodenoscopy Hx laparoscopic cholecystectomy History of hysterectomy Family History Mother No problems noted. Father No problems noted. Social History Household Members Other:: lives alone Housing: House Are you a primary school childcare attendant to a significant other at home: No Do you presently have visiting nurse or other home services: No Alcohol intake: current Alcohol intake frequency: holidays/special occasions only Alcohol type: beer Comment: counts correct Patient Tobacco Use Status: Current everyday Tobacco user Tobacco use type: Cigarette Cigarette Packs Per Day: 1 Cigarettes Per Day: 5 Years Smoked: 20 e-Cigarette/Vaping Use: Never Used Second Hand Smoke Exposure: No service: No Current occupational status: employed 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 Current occupational exposures/hazards: No Cognitive needs: No Hearing needs: No Vision needs: No Review of Systems Const Denies weight gain and Denies weight loss ENT Reports no additional complaints, Denies dysphagia and Denies odynophagia Card Reports no additional complaints Resp Reports no additional complaints GI Denies abdominal pain, Denies belching, Denies melena, Reports bloating, Denies change in bowel habits, Denies dysphagia, Denies excessive flatus, Denies dyspepsia, Reports heartburn (Occasional during the night), Denies diarrhea, Denies loose stools, Denies nausea, Denies odynophagia and Denies vomiting Musc Reports no additional complaints Neuro Reports no additional complaints Psych Reports no additional complaints Endo Reports no additional complaints Physical Exam Vital Signs: Last Vital Signs Pulse 98 09/09/23 11:07 BP 128/92 H 09/09/23 11:07 Pulse Ox 94 09/09/23 11:07 Oxygen Delivery Method Room Air 09/09/23 11:07 BMI result Body Mass Index 25.6 Const General: healthy appearing, no acute distress and well developed Nutritional Appearance: well nourished Orientation/consciousness: patient oriented x3 Resp Effort & Inspection: normal respiratory effort, able to speak in complete sentences, no tracheal deviation and symmetric chest movement Auscultation: clear to auscultation bilaterally Cardio Rate: regular rate GI Inspection: Yes normal to inspection and No distended Palpation (GI): Soft to palpation, not firm, nontender and No hepatosplenomegaly present Auscultation: normal bowel sounds General: Yes no CVA tenderness Back/Spine/Pelvis Back: no CVA tenderness Skin General skin exam: elasticity normal, turgor normal and dry skin Neuro General: patient oriented x3 Psych Appearance: grossly normal Mental Status: mental status grossly normal Assessment & Plan Assessment & Plan (1) Chronic GERD: Code(s): K21.9 - Gastro-esophageal reflux disease without esophagitis Category: Medical (2) Biliary dyskinesia: Code(s): K82.8 - Other specified diseases of gallbladder (3) Constipation: Code(s): K59.00 - Constipation, unspecified Qualifiers: Constipation type: slow transit constipation Qualified Code(s): K59.01 - Slow transit constipation (4) Status post laparoscopic cholecystectomy: Code(s): Z90.49 - Acquired absence of other specified parts of digestive tract Plan Pulmonary referral for PFT and possible corticosteroid therapy. Continue smoking cessation and abstinence. Patient will continue taking omeprazole, will add Pepcid on as needed basis at bedtime. Patient however was encouraged to avoid dietary triggers and late night snacking. Staying upright for minimum 3 hours after meals discussed with patient. Simethicone order she can take it with meals. Low FODMAP diet encouraged. Patient was encouraged also to drink plenty fluids and increase activity to promote better bowel motility. Colonoscopy in 10 years, sooner if clinically necessary. No family history of CRC. Patient will follow-up in the office in 3 months, sooner on as needed basis. She is agreeable to this plan and verbalizes understanding of instructions. She was given the opportunity to questions allowing me to participate in her care Orders: Referrals Pulmonology Referral J45.909 - Unspecified asthma, uncomplicated Medications: New simethicone 125 mg PO BID-QID PRN 120 caps 3RF abdominal distention K21.9 - Gastro-esophageal reflux disease without esophagitis famotidine (Pepcid) 20 mg PO BEDTIME 30 tabs 3RF K21.9 - Gastro-esophageal reflux disease without esophagitis Refilled omeprazole 20 mg PO DAILY 90 caps 3RF 90 days loratadine (Allergy Relief (loratadine)) 10 mg PO DAILY 90 tabs 1RF 90 days albuterol sulfate 90 mcg/actuation (Ventolin HFA) 2 puffs inhalation Q4-6H PRN 8.5 grams 0RF shortness of breath or wheezing J45.20 - Mild intermittent asthma, uncomplicated Coding Level of Care Code Est Pt Level 4 (42038) Diagnoses Chronic GERD K21.9 Biliary dyskinesia K82.8 Slow transit constipation K59.01 Constipation type: slow transit constipation Status post laparoscopic cholecystectomy Z90.49 Time Spent (min) 35 Comment 20 minutes spent with patient and additional 15 minutes spent reviewing her records
[2023-09-09 11:07] VITALS: BP 128/92; PULSE 98; O2SAT 94; BMI 25.6
== END 2023-09-09 11:30 | disposition home or self-care (01) ==
PROVIDERS: PCP Internal Medicine; Visit Provider Nurse Practitioner Family
DX: K21.9 Gastro-esophageal reflux disease without esophagitis (principal); K82.8 Other specified diseases of gallbladder; K59.01 Slow transit constipation; Z90.49 Acquired absence of other specified parts of digestive tract
CPT/HCPCS: 99214

== ENCOUNTER → 2023-09-09 10:49 | Outpatient (BNVA) | payer OTHER, SELFPAY | PROVIDERS: PCP Internal Medicine; Visit Provider Nurse Practitioner Family | DX: K21.9 Gastro-esophageal reflux disease without esophagitis (principal); K82.8 Other specified diseases of gallbladder; K59.01 Slow transit constipation; Z90.49 Acquired absence of other specified parts of digestive tract | CPT/HCPCS: 99212 ==

== ENCOUNTER 2023-10-08 09:50 | Outpatient (AMB) | payer OTHER, SELFPAY ==
--- NOTE | 2023-10-08 09:57 | MHC.PC.OV ---
Vital Signs 10/08/23 09:59 Height 5 ft 3 in Weight 143 lb BMI 25.3 BP 142/100 H Blood Pressure Location Lt brachial Position Sitting Intake Visit Reasons: Annual Exam Intake Note: Patient here for an annual physical exam Rotary Cutter Operator Required: No Accompanied by: Grand Child Allergies azithromycin [AZITHROMYCIN] Allergy (Unknown, Verified 10/08/23 10:19) RASH, LIP SWELLING Medication List - Last Reconciled 10/08/23 by Rebeca Rubio MD albuterol sulfate 0.63 mg (3 mL) inhalation Q4-6H PRN albuterol sulfate 90 mcg/actuation (Ventolin HFA) 2 puffs inhalation Q4-6H PRN cholecalciferol (vitamin D3) 25 mcg PO DAILY 90 days famotidine (Pepcid) 20 mg PO BEDTIME loratadine (Allergy Relief (loratadine)) 10 mg PO DAILY 90 days omeprazole 20 mg PO DAILY 90 days simethicone 125 mg PO BID-QID PRN Tobacco use date assessed: 10/08/23 Dental Screening Dental Screen Date: 10/08/23 Did you have a dental visit in the last 12 months?: No Did you have a dental problem in the last 6 months where you did not have access to dental care?: No Was dental information given to patient?: Patient has dentist HPI HPI Comments History of Present Illness Details This is a 52-year-old female that comes for her physical exam. Mammogram done November 2022 and was normal. No need for Pap smear due to hysterectomy for benign reasons. Colonoscopy done 2023 showing hyperplastic polyp. Denies any acute complaints. Advised to quit smoking and wants to try the nicotine patch again. Patient is aware that she can not smoke with a nicotine patch on. [facility] Medical History Transaminitis Right shoulder pain Left shoulder pain Lumbar pain Polyarthralgia Physical exam Mild intermittent asthma, uncomplicated Chronic GERD Immunizations incomplete Surgical History History of colonoscopy Hx of knee surgery Hx of esophagogastroduodenoscopy Hx laparoscopic cholecystectomy History of hysterectomy Family History (Updated 10/08/23 @ 10:25 by Rebeca Rubio MD) Mother CAD (coronary artery disease) Father No problems noted. 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 1. Little interest or pleasure in doing things: not at all 2. Feeling down, depressed, or hopeless: several days 3. Trouble falling or staying asleep, or sleeping too much: not at all 4. Feeling tired or having little energy: not at all 5. Poor appetite or overeating: not at all 6. Feeling bad about yourself - or that you are a failure or have let yourself or your family down: not at all 7. Trouble concentrating on things, such as reading the newspaper or watching television: not at all 8. Moving or speaking so slowly that other people could have noticed. Or the opposite - being so fidgety or restless that you have been moving around a lot more than usual: not at all 9. Thoughts that you would be better off or of hurting yourself in some way: not at all Total score: 1 Depression Screening Interpretation: Negative Depression Screening Done: Yes 57145 - PHQ-9 Billing: Yes Source: Developed by Drs. Omar Medley, Jessica Larson, Jacobo Polanco and colleagues, with an educational blanco from [employer]. Thrive Questionnaire Date Thrive assessed: 10/08/23 I am a: Patient What is your living situation today?: I have a steady place to live Within the past 12 months, did the food you bought not last and you didn't have the money to get more?: Never true Within the past 12 months, did you worry whether your food would run out before you got money to buy more?: Never true Do you have trouble paying for medicines?: No Do you have trouble getting transportation to medical appointments?: No Do you have trouble paying your heating and electricity bill?: No Do you have trouble taking care of your child, family member or friend?: No Do you have trouble with day-to-day activities such as bathing, preparing meals, shopping, managing finances, etc.?: No Are you currently unemployed and looking for a job?: No Are you interested in more education?: No Please select the resources that you would like help with: None Currently or been in a relationship where the following occur: No concerns reported THRIVE Score: 0 AUDIT C Alcohol Use Questionnaire (AUDIT-C) 1. How often do you have a drink containing alcohol?: 2-4 times a month 2. How many drinks containing alcohol do you have on a typical day when you are drinking?: 1 or 2 3. How often do you have six or more drinks on one occasion?: Never Total Score: 2 CHAS-7 AMB Questionnaire CHAS-7 Date CHAS - 7 assessed: 10/08/23 Feeling nervous, anxious, or on edge: 1 = Several days Not being able to stop or control worryin = Not at all Worrying too much about different things: 1 = Several days Trouble relaxin = Not at all Being so restless that it is hard to sit still: 0 = Not at all Becoming easily annoyed or irritable: 0 = Not at all Feeling afraid as if something awful might happen: 0 = Not at all Total CHAS-7 score (0-4 normal; 5-9 mild; 10-14 moderate; 15-21 severe): 2 Source: Developed by Drs. Omar Medley, Jessica Larson, Jacobo Polanco and colleagues, with an educational blanco from [employer]. Review of Systems Const All systems reviewed & are unremarkable except as noted in HPI and below Card Denies chest pain at rest, Denies chest pain with activity, Denies edema, Denies irregular heart rhythm, Denies claudication, Denies dyspnea, Denies dyspnea on exertion, Denies orthopnea, Denies paroxysmal nocturnal dyspnea and Denies slow heart rate Resp Denies cough, Denies dyspnea and Denies dyspnea on exertion GI Denies abdominal pain, Denies change in bowel habits, Denies excessive flatus, Denies nausea and Denies vomiting Denies urinary incontinence, Denies urinary hesitancy and Denies urinary urgency Musc Denies abnormal gait, Denies atrophy, Denies deformity and Denies limited range of motion Skin/Breast Denies bleeding lesions, Denies changing lesions and Denies rash Neuro Denies abnormal gait, Denies behavioral changes and Denies lack of coordination Psych Denies behavioral changes Physical exam (Primary Care) Vital Signs: Last Vital Signs BP 142/100 H 10/08/23 09:59 BMI result Body Mass Index 25.3 Tobacco/Smoking Status: Tobacco use Status Tobacco use date assessed 10/08/23 10/08/23 10:03 Patient Tobacco Use Status Current everyday Tobacco 10/08/23 09:59 Tobacco use type Cigarette 10/08/23 09:59 e-Cigarette/Vaping Use Never Used 10/08/23 09:59 Are you ready to quit: Yes Tobacco cessation counseling provided: Yes Items discussed: Nicotine replacement Relapse Prevention: discussed the importance of a supportive environment, discussed extending NRT, discussed negative mood or depression after quitting, weight gain after smoking is common and discussed dietary, exercise and/or lifestyle changes Number of minutes spent counselin CPT code: 48261 - 4-10 Minutes Depression Screening Interpretation: Negative Thrive Assessment: Date of Thrive Assessment Date Thrive assessed 01/10/21 10/08/23 09:59 Currently or been in a relationship where the following occur: No concerns reported [facility] Head: Yes normal to inspection, Yes normocephalic and Yes atraumatic Ears: external ears normal Eyes General: appearance normal, both eyes and all related structures Eyelids: Yes eyelids normal Conjunctivae: conjunctivae normal Neck Neck: Yes normal visual inspection and Yes supple Resp Effort & Inspection: normal respiratory effort Auscultation: clear to auscultation bilaterally Cardio Jugular venous distension: no JVD Rate: regular rate Rhythm: regular rhythm Heart sounds: S1 normal heart sound present and S2 normal heart sound present GI Inspection: Yes normal to inspection Palpation (GI): Soft to palpation and nontender Auscultation: normal bowel sounds Skin General skin exam: no rashes or lesions noted Neuro General: no focal motor deficits Extrem General: Yes full ROM Psych Appearance: grossly normal Assessment and Plan Assessment & Plan (1) Physical exam: Code(s): Z00.00 - Encounter for general adult medical examination without abnormal findings Plan: Repeat in a year. Orders: Orders Lipid Panel Today Z00.00 - Encounter for general adult medical examination without abnormal findings Comprehensive Randolph. Panel Fast Today Z00.00 - Encounter for general adult medical examination without abnormal findings Vitamin D 25-OH Total Today E55.9 - Vitamin D deficiency, unspecified Medications: New nicotine 1 patch transdermal DAILY 28 days 28 ea 0RF Refilled cholecalciferol (vitamin D3) 25 mcg PO DAILY 90 days 90 caps 1RF Coding Level of Care Code Est Pt Prev Care 40-64y(88296) Diagnoses Physical exam Z00.00 Additional Codes Vital Signs *Quality* - CPT code: 56485 - 4-10 Minutes ([id number]) Time Spent (min) 30
[2023-10-08 09:59] VITALS: BP 142/100; BMI 25.3
== END 2023-10-08 10:34 | disposition home or self-care (01) ==
PROVIDERS: PCP Internal Medicine; Visit Provider Internal Medicine
DX: Z00.00 Encounter for general adult medical examination without abnormal findings (principal); F17.210 Nicotine dependence, cigarettes, uncomplicated
CPT/HCPCS: 99396; 99406

== ENCOUNTER 2023-10-28 13:35 | Outpatient (REF) | payer OTHER, SELFPAY ==
[2023-10-28 14:35] LABS: MANUAL DIFF FLAG NO
[2023-10-28 16:03] LABS: Basophils Percent Auto 0.2 % (0-2); Eosinophils Absolute Auto 0.3 X10*3/uL (0.0-0.4); Eosinophils Percent Auto 2.6 % (0-4); Hematocrit 41.1 % (37.0-47.0); Hemoglobin 14.2 g/dl (12.0-16.0); Imm Gran Abs Auto 0.06 X10*3/uL (0.00-0.03); Imm Gran Pct Auto 0.5 % (0.0-0.4); Lymphocytes Absolute Auto 3.8 X10*3/uL (1.2-4.9); Lymphocytes Percent Auto 29.4 % (20-40); Mean Corpuscular HGB Conc 34.5 g/dl (31.0-35.0); Mean Corpuscular Hemoglobin 31.4 pg (27.0-33.0); Mean Corpuscular Volume 90.9 fL (80.0-98.0); Monocytes Absolute Auto 0.8 X10*3/uL (0.1-1.2); Monocytes Percent Auto 6.4 % (2-11); Neutrophils Absolute Auto 7.9 x10*3/uL (2.0-8.3); Neutrophils Percent Auto 60.9 % (45-73); Platelet Count 325 X10*3/uL (160-400); Red Blood Count 4.52 X10*6/uL (4.20-5.50)
[2023-11-04 12:59] LABS: Class Derm. pterony 0; Class Dermatophagoides farinae 0; D001 IgE D pteronyssinus <0.10; D002 - IgE D farinae <0.10
[2023-11-04 13:00] LABS: Class Alternaria alternata 0; Class Aspergillus fumigatus 0; Class Cat Dander 3; Class Cladosporium herbarum 0; Class Dog Dander 3; Class Penicillium crysogenum 0; M001 IgE Penicillium chrysogen <0.10; M002 - IgE Cladosporium herbar <0.10; M003 - IgE Aspergillus fumigat <0.10; M006 - IgE Alternaria alternat <0.10
[2023-11-04 13:01] LABS: Class Cockroach 0/1
[2023-11-04 13:02] LABS: Class Birch 3; Class Maple Box Elder 2; Class Mountain Cedar 0/1; Class Walnut Tree 2; T006 - IgE Cedar, Mountain 0.14 (H)
[2023-11-04 13:03] LABS: Class Cottonwood 0/1; Class Oak 2; Class Sycamore 1; Class White Ash 2; T014 - IgE Cottonwood 0.24 (H)
[2023-11-04 13:04] LABS: Class Bermuda Grass 2; Class Elm 1; Class White Mulberry 0; T070 - IgE White Mulberry <0.10
[2023-11-04 13:05] LABS: Class Common Ragweed 4; Class Rough Pigweed 0/1; Class Timothy Grass 3; W014 IgE Pigweed, Common 0.34 (H)
[2023-11-04 13:06] LABS: Class Mouse Urine Protein 0; Class Mugwort 1; Class Sheep Sorrel 1; E072-IgE Mouse Urine <0.10
[2023-11-04 13:07] LABS: Immunoglobulin E 422 (H)
== END 2023-10-28 13:36 | disposition home or self-care (01) ==
LOC: HO.LAB 13:35
PROVIDERS: Absent Provider Internal Medicine; PCP Internal Medicine; Visit Provider Internal Medicine Pulmonary Disease
DX: Z91.09 Other allergy status, other than to drugs and biological substances (principal); J45.909 Unspecified asthma, uncomplicated
CPT/HCPCS: 36415; 82785; 85025; 86003; 99202

== ENCOUNTER 2023-10-28 13:35 | Outpatient (AMB) | payer OTHER, SELFPAY ==
[2023-10-28 13:36] VITALS: BP 112/64; PULSE 99; O2SAT 96; BMI 25.7
--- NOTE | 2023-10-28 13:36 | MHC.OFFVIS ---
Vital Signs 10/28/23 13:36 Height 5 ft 3 in Weight 145 lb BMI 25.7 BP 112/64 Blood Pressure Location Rt brachial Position Sitting Pulse 99 Pulse Source Doppler Pulse Oximetry (%) 96 Oxygen Delivery Method Room Air Intake Visit Reasons: asthma Allergies azithromycin [AZITHROMYCIN] Allergy (Unknown, Verified 10/28/23 13:42) RASH, LIP SWELLING HPI HPI asthma: Details: 52-year-old lady, active 30+ pack-year smoker, with underlying asthma referred for evaluation management of her asthma symptoms. Patient states that she has been using albuterol MDI and nebs with suboptimal control her symptoms. She is currently on no inhaled corticosteroid. Patient denies having recent pulmonary function or environmental allergy testing. She does complain of environmental allergies lasting through most of the year. She denies an acute exacerbation. Patient denies prior personal of family history of lung disease. She denies exposure to industrial dusts. She does have a dog as a pet. [facility] Medical History Transaminitis Right shoulder pain Left shoulder pain Lumbar pain Polyarthralgia Physical exam Mild intermittent asthma, uncomplicated Chronic GERD Immunizations incomplete Surgical History History of colonoscopy Hx of knee surgery Hx of esophagogastroduodenoscopy Hx laparoscopic cholecystectomy History of hysterectomy Family History (Updated 10/08/23 @ 10:25 by Rebeca Rubio MD) Mother CAD (coronary artery disease) Father No problems noted. Social History (Updated 10/28/23 @ 13:44 by Mercedes Murphy Edu) Household Members Other:: lives alone Housing: House Are you a primary laboratory animal care veterinarian to a significant other at home: No Do you presently have visiting nurse or other home services: No Alcohol intake: current Alcohol intake frequency: holidays/special occasions only Alcohol type: beer Comment: counts correct Patient Tobacco Use Status: Current everyday Tobacco user Tobacco use type: Cigarette Cigarettes Per Day: 5 Years Smoked: 20, Started around age 16, 5-6 cigarettes a day e-Cigarette/Vaping Use: Never Used Second Hand Smoke Exposure: No service: No Current occupational status: employed 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 Current occupational exposures/hazards: No Cognitive needs: No Hearing needs: No Vision needs: No Review of Systems Const Denies daytime sleepiness, Denies excessive sweating, Denies fatigue, Denies fever(s), Denies lethargy, Denies malaise, Denies night sweats, Denies snoring and Denies weight loss Eyes Denies blurry vision and Denies itchy eyes ENT Denies nasal congestion, Denies post nasal drip, Denies sinus pain, Denies sinus pressure and Denies other ( Thrush) Card Denies chest pain, Denies pedal edema, Denies dyspnea, Denies orthopnea and Denies paroxysmal nocturnal dyspnea Resp Denies cough, Denies hemoptysis, Denies excessive phlegm production, Denies dyspnea, Denies snoring and Reports wheezing GI Denies abdominal pain and Denies heartburn Musc Denies myalgias, Denies arthralgias and Denies joint swelling Skin/Breast Denies rash Neuro Denies memory loss and Denies seizure-like activity Psych Denies abnormal sleep pattern, Denies anxiety and Denies memory loss Endo Denies excessive sweating, Denies fatigue and Denies heat intolerance Ruben/Lymph Denies easy bruising Aller/Immun Denies itchy eyes, Denies seasonal rhinorrhea and Reports wheezing Physical Exam Vital Signs: Last Vital Signs Pulse 99 10/28/23 13:36 BP 112/64 10/28/23 13:36 Pulse Ox 96 10/28/23 13:36 Oxygen Delivery Method Room Air 10/28/23 13:36 BMI result Body Mass Index 25.7 Const General: no acute distress and alert Nutritional Appearance: not obese Orientation/consciousness: Other orientation findings ( oriented) HEENT Head: Yes atraumatic Eyes General: appearance normal, both eyes and all related structures Sclerae: sclerae normal EOM: EOMs intact bilaterally Neck Neck: Yes supple Lymphatic: no lymphadenopathy noted Resp Effort & Inspection: normal respiratory effort and no use of accessory muscles Auscultation: clear to auscultation bilaterally Cardio Rate: regular rate Rhythm: regular rhythm Heart sounds: no gallops, no murmurs and no rubs Skin General skin exam: other ( warm) Extrem General: No clubbing, No cyanosis and No edema Assessment & Plan Assessment & Plan (1) Asthma: Code(s): J45.909 - Unspecified asthma, uncomplicated Category: Medical Plan: Suboptimally controlled on albuterol MDI/nebs. Will add Breo. Will obtain full PFT. (2) Environmental allergies: Code(s): Z91.09 - Other allergy status, other than to drugs and biological substances Category: Medical Plan: Will obtain IgE level, CBC with differential, and RAST panel for further evaluation. Orders: Orders Resp Allergy Profile Region I Today J45.909 - Unspecified asthma, uncomplicated, Z91.09 - Other allergy status, other than to drugs and biological substances PFT pulmonary function test Today J45.909 - Unspecified asthma, uncomplicated Medications: New ipratropium-albuterol 0.5 mg-3 mg(2.5 mg base)/3 mL 3 mL inhalation Q4-6H PRN 180 mL 6RF wheezing J45.909 - Unspecified asthma, uncomplicated fluticasone furoate-vilanterol 200-25 mcg/dose (Breo Ellipta) 1 inh inhalation DAILY 60 ea 6RF J45.909 - Unspecified asthma, uncomplicated Coding Level of Care Code New Pt Level 4 (82123) Diagnoses Asthma J45.909 Environmental allergies Z91.09
== END 2023-10-28 14:01 | disposition home or self-care (01) ==
PROVIDERS: PCP Internal Medicine; Visit Provider Internal Medicine Pulmonary Disease
DX: J45.909 Unspecified asthma, uncomplicated (principal); Z91.09 Other allergy status, other than to drugs and biological substances
CPT/HCPCS: 99204

== ENCOUNTER 2023-12-18 13:29 | Outpatient (REF) | payer OTHER, SELFPAY ==
--- NOTE | ~2023-12-18 | MM_ITS ---
EXAMINATION: MM SCREENING DIGITAL BREAST TOMOSYNTHESIS, BILATERAL CLINICAL INFORMATION: Screening. Asymptomatic. COMPARISON: Mammography: Comparison is made with available priors TECHNIQUE: Digital breast mammography with tomosynthesis is performed in both the craniocaudal and mediolateral oblique views along with computer-aided detection (CAD). FINDINGS: The breasts are heterogeneously dense, which may obscure small masses (ACR BI-RADS breast composition Category c). Right: Asymmetry lateral breast posterior depth on CC view could represent an island of normal breast tissue. Otherwise there are no significant masses, abnormal calcifications, or other abnormalities. Left: 2 asymmetries medial left breast on CC view anterior and posterior depth. No suspicious calcifications or other abnormal findings. MM/MM tomosynthesis screening BI IMPRESSION: Additional imaging is recommended ASSESSMENT: BI-RADS BI-RADS 0 - Incomplete: Needs additional Imaging. RECOMMENDATION: 1. Additional views of the bilateral breasts 2. Targeted ultrasound if warranted after review of the additional views. 3. Radiology department staff will contact the patient for additional imaging. Additional Imaging required This examination should not preclude the clinical evaluation of a suspicious palpable abnormality. This patient's information was entered into a reminder system with a target due date for their next mammogram. Electronically signed by: Angelia Ramsey DO 12/30/2023 08:47 AM [facility]
== END 2023-12-18 13:30 | disposition home or self-care (01) ==
LOC: HO.MAMMO 13:29
PROVIDERS: PCP Internal Medicine; Visit Provider Internal Medicine
DX: Z12.31 Encounter for screening mammogram for malignant neoplasm of breast (principal)
CPT/HCPCS: 77063; 77067

== ENCOUNTER → 2023-12-18 16:30 | Outpatient (BNV) | payer OTHER, SELFPAY | PROVIDERS: PCP Internal Medicine; Visit Provider Internal Medicine | DX: Z12.31 Encounter for screening mammogram for malignant neoplasm of breast (principal) | CPT/HCPCS: 77063; 77067 ==

== ENCOUNTER 2024-01-14 11:22 | Outpatient (REF) | payer OTHER, SELFPAY ==
--- NOTE | ~2024-01-14 | XR_ITS ---
EXAMINATION: XR CHEST CLINICAL INFORMATION: ACUTE COUGH COMPARISON: 05/12/2022 TECHNIQUE: 2 views of the chest were obtained. FINDINGS: No significant abnormality is noted involving the heart, lungs, mediastinum, bony thorax or soft tissues. XR/XR chest 2V IMPRESSION: No acute disease Electronically signed by: Doron Perkins MD 01/14/2024 12:19 PM [facility]
== END 2024-01-14 11:23 | disposition home or self-care (01) ==
LOC: HO.XRAY 11:22
PROVIDERS: PCP Internal Medicine; Visit Provider Nurse Practitioner
DX: R05.1 Acute cough (principal)
CPT/HCPCS: 71046

== ENCOUNTER → 2024-03-03 14:30 | Outpatient (BNV) | payer OTHER, SELFPAY | PROVIDERS: PCP Internal Medicine; Visit Provider Internal Medicine | DX: R92.8 Other abnormal and inconclusive findings on diagnostic imaging of breast (principal) | CPT/HCPCS: 76642; 77062; 77066 ==

== ENCOUNTER 2024-03-03 14:31 | Outpatient (REF) | payer OTHER, SELFPAY ==
--- NOTE | ~2024-03-03 | MM_ITS ---
EXAMINATION: MM DIAGNOSTIC DIGITAL BREAST TOMOSYNTHESIS, BILATERAL Bilateral Limited ultrasound. CLINICAL INFORMATION: Call back from screening for bilateral asymmetries. COMPARISON: Mammography: Comparison is made with relevant prior exams. TECHNIQUE: Digital breast mammography with tomosynthesis is performed in both the craniocaudal and mediolateral oblique views along with computer-aided detection (CAD). Lung bilateral Limited ultrasound. FINDINGS: The breasts are heterogeneously dense, which may obscure small masses (ACR BI-RADS breast composition Category c). Right: Asymmetry in the lateral right breast posterior depth on CC view does not persist on additional imaging projections and likely represented overlapping breast tissue. No suspicious calcifications or other abnormal findings. Targeted color Doppler ultrasound scanning in the lower outer quadrant from 7-11 o'clock demonstrates normal fibronodular breast tissue. There is an incidental simple cyst at 10:00 1 cm from the nipple measuring 9 x 8 x 4 mm. Left: Asymmetries in the medial left breast on CC view anterior depth and posterior depth persist on additional imaging projections. No suspicious calcifications or other abnormal findings. Targeted color Doppler ultrasound scanning in the medial left breast 6 11:00 is performed. 8:00 4 cm from nipple there is a simple cyst measuring 4 x 3 x 3 mm. Otherwise there is no sonographic abnormality in the medial left breast. Results are provided to the patient at time of visit by the technologist. MM/MM tomosynthesis added view BI IMPRESSION: Right: Simple cyst on ultrasound. Benign. Left: 1. Asymmetries in the medial left breast on CC view without definite sonographic correlates. Recommend six-month follow-up mammography for further evaluation of stability. 2. Simple cyst on ultrasound. Benign. ASSESSMENT: BI-RADS BI-RADS 3 - Probably benign finding(s) - 6 month follow-up suggested RECOMMENDATION: 6 Month F/U This patient's information was entered into a reminder system with a target due date for their next mammogram. Electronically signed by: Angelia Ramsey DO 03/04/2024 08:25 AM [facility]
== END 2024-03-03 14:32 | disposition home or self-care (01) ==
LOC: HO.MAMMO 14:31
PROVIDERS: PCP Internal Medicine; Visit Provider Internal Medicine
DX: N64.89 Other specified disorders of breast (principal); N60.02 Solitary cyst of left breast; N60.01 Solitary cyst of right breast
CPT/HCPCS: 76642; 77062; 77066

== ENCOUNTER 2024-11-23 14:53 | Outpatient (REF) | payer OTHER, SELFPAY ==
--- NOTE | ~2024-11-23 | MM_ITS ---
EXAMINATION(S): 1. MM DIAGNOSTIC DIGITAL BREAST TOMOSYNTHESIS, BILATERAL 2. Targeted ultrasound of the left breast CLINICAL INFORMATION: Patient is status post diagnostic mammogram on March 03, 2024 which recommended a 6-month follow-up for multiple left breast asymmetries located in the medial breast on the CC view, without definite ultrasound correlate. Today, patient also mentioned focal pain in the upper outer quadrant of the left breast. COMPARISON: Comparison made to multiple prior, most recent March 03, 2024, and most remote March 22, 2009. TECHNIQUE: Digital breast tomosynthesis is performed in both the mediolateral oblique and craniocaudal views along with computer-aided detection (CAD). Synthesized 2D images are generated from the tomosynthesis. Spot compression tomosynthesis were obtained. FINDINGS: BREAST COMPOSITION: The breasts are heterogeneously dense, which may obscure small masses. RIGHT BREAST: No significant masses, suspicious calcifications or other abnormalities are seen. LEFT BREAST: -Previously described multiple asymmetries in the medial breast in the anterior and posterior depth on the CC view are unchanged from November 2023. -Focal asymmetry in the upper outer quadrant at approximately 6-7 cm from the nipple, better seen on the CC view. Targeted ultrasound of the left breast was performed at the location of the mammographic finding. The survey shows a cluster for cysts at 2 o'clock position 7 cm from the nipple measuring 0.6 x 0.4 x 0.4 cm. -No suspicious calcifications are seen. Targeted ultrasound of the left breast was performed at the location of the focal pain as indicated by the patient. Survey throughout the upper outer quadrant did not reveal suspicious sonographic findings. MM/MM tomosynthesis diagnostic BI IMPRESSION: RIGHT BREAST: Negative, no mammographic evidence of malignancy. Normal interval follow-up is recommended in 12 months. LEFT BREAST: -Multiple asymmetries in the medial breast in the anterior and posterior depth on the CC view are unchanged from November 2023. Probably benign. A 6-month follow-up left mammogram is recommended. -Clinical follow-up is recommended for the concern of focal pain. ASSESSMENT: BI-RADS: Category 3: Probably benign RECOMMENDATION: 6 Month F/U Results were provided to the patient at time of visit by the technologist. Electronically signed by: Funmilayo Matute MD 11/23/2024 06:58 PM EDT
--- OUTSIDE RECORDS SUMMARY | 2024-11-23 16:13 | XMS_ITS | Encounter Summary ---
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 [address] [place] [address] Clement Mazariegos MD [address] [place] [address] New Patient Social History Tobacco Use Types Packs/Day Years Used Date Smoking Tobacco: Never Assessed Comments Unknown Sex and Gender Information Value Date Recorded Sex Assigned at Female 12/24/2021 10:20 AM EDT Legal Sex Female 10:20 AM EDT Gender Identity Not on file Sexual Orientation Not on file documented as of this encounter Miscellaneous Notes * Telephone Encounter - Klaudia Horta - 11/20/2022 3:43 PM EDT New Patients Par Klaudia De Souza called to schedule New patient appt, pt did not answer left voicemail to give a call at [phone]. documented in this encounter Plan of Treatment Not on file documented as of this encounter Visit Diagnoses Not on filedocumented in this encounter
--- OUTSIDE RECORDS SUMMARY | 2024-11-23 16:13 | XMS_ITS | Clinical Summary ---
Author Organization [employer] Address [address] [place] [address] Care Team Providers Care Flask Handler Name Role Phone Unavailable Primary Care Provider Unavailabl e Social History Tobacco Use Types Packs/Day Years Used Date Smoking Tobacco: Never Assessed Comments Unknown Sex and Gender Information Value Date Recorded Sex Assigned at Female 12/24/2021 10:20 AM EDT Legal Sex Female 10:20 AM EDT Gender Identity Not on file Sexual Orientation Not on file Plan of Treatment Health Maintenance Due Date Last Done Comments CT Colonography 1968 Colonoscopy 1968 Colorectal Cancer Screening 1968 Depression Screening 1968 FIT DNA/Cologuard 1968 FIT 1968 FOBT 1968 HIV Screening 1968 SDOH Screening 1968 Sigmoidoscopy 1968 Disability Screening 1968 Alcohol/Substance Use Screening 1980 Tobacco Screening 1980 Hepatitis C Screening 1986 DTaP/Tdap/Td Vaccines (1 - Tdap) 12/05/1987 Hepatitis B Vaccines (1 of 3 - 19+ 3-dose series) 12/05/1987 Pap Smear 1989 Cervical Cancer Screening 1998 HPV/Cotest 1998 Mammogram 2008 Pneumococcal Vaccine: 50+ Ye ars (1 of 1 - PCV) 2018 Zoster Vaccines (1 of 2) 2018 COVID-19 Vaccine ( - 2023-2 5 season) 2024 Influenza Vaccine (#1) 2024 RSV Patients and Pa tients Aged 60 years or older (1 - 1-dose 75+ series) 12/05/2043 HIB Vaccines Aged Out No longer eligi ble based on patient's age to complete this topic HPV Vaccines Aged Out No longer eligi ble based on patient's age to complete this topic Hepatitis A Vaccines Aged Out No long er eligible based on patient's age to complete this topic IPV Vaccines Aged Out No longer eligi ble based on patient's age to complete this topic Meningococcal B Vaccine Aged Out No l onger eligible based on patient's age to complete this topic Meningococcal Vaccine Aged Out No nikki wilbert eligible based on patient's age to complete this topic RSV under 20 months Aged Out No longe r eligible based on patient's age to complete this topic Rotavirus Vaccines Aged Out No longer eligible based on patient's age to complete this topic Insurance HSN PARTIAL
--- OUTSIDE RECORDS SUMMARY | 2024-11-23 16:13 | XMS_ITS | Patient Health Record ---
Author Organization [employer] Address [address] [place] [id number] Care Team Providers Care Inside Sales Account Representative Name Role Phone Omar Bates Unavailable [phone] Reason For Referral No Information Plan Of Treatment No Information
--- OUTSIDE RECORDS SUMMARY | 2024-11-23 16:13 | XMS_ITS | Clinical Summary ---
Author Organization [facility] Address [address] [place] [address] Care Team Providers Care Blow Mold Machine Operator Name Role Phone Unavailable Primary Care Provider Unavailabl e Source Comments PLEASE NOTE, if this patient is a minor, it may be UNLAWFUL to discuss sensitive information that is contained in these records (such as FAMILY PLANNING, MENTAL HEALTH or SUBSTANCE ABUSE) with the minor patient's parent or other person without the patient's specific authorization.[facility] Immunizations Immunization Administration Dates Next Due Moderna COVID-19 Vaccine, re d cap blue label, 12+ Primary Series 07/20/2020,06/21/2020 Social History Tobacco Use Types Packs/Day Years Used Date Smoking Tobacco: Never Assessed Social Connections Answer Date Recorded Social Connections and Isolation 0 07/25/2023 Financial Resource Strain Answer Date R ecorded Financial Resource Strain 0 2023 Stress Answer Date Recorded Stress 0 07/25/2023 Physical Activity Answer Date Recorded Physical Activity 0 07/25/2023 Food Insecurity Answer Date Recorded Food 0 07/25/2023 Transportation Needs Answer Date Record ed Transportation 0 07/25/2023 Housing Stability Answer Date Recorded Housing 0 07/25/2023 Safety and Environment Answer Date Ba rded Safety 0 07/25/2023 Utilities Answer Date Recorded Utilities 0 07/25/2023 Employment Answer Date Recorded Employment 0 07/25/2023 Comments Unknown Sex and Gender Information Value Date Recorded Sex Assigned at Not on file Legal Sex Female 7:52 AM PDT Gender Identity Not on file Sexual Orientation Not on file Plan of Treatment Health Maintenance Due Date Last Done Comments Anxiety Screening 1968 Diabetes Screening 1968 HPV Screening 1968 Hepatitis C Screening 1968 Lipid Screening 1968 Pap + HPV 1968 Tobacco Screening 1968 HIV Screening 12/05/1983 Hypertension Screening (#1) 1986 Imm-Hepatitis B (1 of 3 - 19 + 3-dose series) 12/05/1987 Cervical Cancer Screening 1989 Pap Smear 1989 Breast Cancer Screening (Mammogram) 2008 CT Colonography 2013 Colonoscopy 2013 Colorectal Cancer Screening 2013 FIT/gFOBT 2013 Fecal DNA 2013 Flexible Sigmoidoscopy 2013 Imm-Pneumococcal 50+ (1 of 1 - PCV) 2018 Imm-Zoster, Recombinant (1 of 2) 2018 Alcohol and Drug Screen 02/25/2024 Depression Annual Screen 02/25/2024 Eob-QFTTH-87 ( season) 2024 021, 06/21/2020 Imm-Influenza (#1) 2024 Imm-DTaP/Tdap/Td (2 - Td or Tdap) 05/20/2026 017 Cervical Ablation/Cold-Knife Conization Discontinued Cervical Cryotherapy Discontinued Colposcopy Discontinued Endometrial Biopsy Discontinued Excision/Leep Discontinued HPV Genotyping Discontinued Vaginal Pap Discontinued Vulvoscopy Discontinued Insurance [facility] Member Subscriber Plan / Payer (Ef fective 2020-Present) Name:Haylie Alicea Relation to Subscriber:Self Name:Haylie Alicea Payer ID:[id number] Group ID:[id number] Type:Medicaid Address: [facility] [address] [place] [address]
== END 2024-11-23 14:54 | disposition home or self-care (01) ==
LOC: HO.MAMMO 14:53
PROVIDERS: PCP Internal Medicine; Visit Provider Internal Medicine
DX: N64.89 Other specified disorders of breast (principal)
CPT/HCPCS: 76642; 77062; 77066

== ENCOUNTER → 2024-11-23 15:00 | Outpatient (BNV) | payer OTHER, SELFPAY | PROVIDERS: PCP Internal Medicine; Visit Provider Radiology Body Imaging | DX: N60.12 Diffuse cystic mastopathy of left breast (principal) | CPT/HCPCS: 76642; 77062; 77066 ==

== ENCOUNTER 2025-01-18 15:20 | Outpatient (AMB) | payer OTHER, SELFPAY ==
[2025-01-18 15:26] VITALS: BP 132/78; PULSE 78; RESP 18; TEMP 36.3; O2SAT 98; BMI 26.1
--- NOTE | 2025-01-18 15:26 | A.OFFPC_ITS ---
Vital Signs 01/18/25 15:26 Height 5 ft 3 in Weight 147 lb 6 oz BMI 26.1 BP 132/78 Blood Pressure Location Lt brachial Position Sitting Respiration 18 Pulse 78 Pulse Source Pulse Oximeter Temp 97.3 F Temp Source Temporal Artery Scan Pulse Oximetry (%) 98 Oxygen Delivery Method Room Air Intake Visit Reasons: annual exam Intake Note: Patient is here today for a physical. Map Colorer Required: No Accompanied by: Self / Same As Patient Allergies azithromycin (AZITHROMYCIN) Allergy (Unknown, Verified 01/18/25 15:52) RASH, LIP SWELLING Medication List - Last Reconciled 01/18/25 by Rebeca Rubio MD albuterol sulfate 0.63 mg (3 mL) inhalation Q4-6H PRN albuterol sulfate 90 mcg/actuation (Ventolin HFA) 2 puffs inhalation Q4-6H PRN cholecalciferol (vitamin D3) 25 mcg PO DAILY 90 days famotidine 20 mg PO BEDTIME fluticasone furoate-vilanterol 200-25 mcg/dose (Breo Ellipta) 1 inh inhalation DAILY ipratropium-albuterol 0.5 mg-3 mg(2.5 mg base)/3 mL 3 mL inhalation Q4-6H PRN loratadine (Allergy Relief (loratadine)) 10 mg PO DAILY 90 days nicotine 1 patch transdermal DAILY 28 days omeprazole 20 mg PO DAILY 90 days simethicone 125 mg PO BID-QID PRN Tobacco use date assessed: 10/08/23 Dental Screening Dental Screen Date: 01/18/25 Did you have a dental visit in the last 12 months?: No Did you have a dental problem in the last 6 months where you did not have access to dental care?: No Was dental information given to patient?: No HPI HPI Comments History of Present Illness Details The patient is a 54 year old individual presenting for a physical exam and management of chronic conditions. The patient reports severe allergies which are currently exacerbated. The patient has a history of asthma and has an albuterol inhaler, a nebulizer, and a Breo inhaler which is used occasionally. Post-cholecystectomy, the patient experienced chronic diarrhea, which has recently improved after taking a CMOS supplement; however, the patient discontinued the supplement due to side effects. The patient has a history of hysterectomy and does not require Pap smears. The patient's last colonoscopy was last year and was normal. A recent mammogram requires a 6-month follow-up. The patient is a current smoker, consuming approximately one pack of cigarettes every three days, with increased consumption when drinking alcohol. The patient takes vitamin D, vitamin C, and turmeric supplements daily and uses Pepcid. Both of the patient's parents are . [facility] Medical History Transaminitis Right shoulder pain Left shoulder pain Lumbar pain Polyarthralgia Physical exam Mild intermittent asthma, uncomplicated Chronic GERD Immunizations incomplete Surgical History History of colonoscopy Hx of knee surgery Hx of esophagogastroduodenoscopy Hx laparoscopic cholecystectomy History of hysterectomy Family History Mother CAD (coronary artery disease) Father No problems noted. Social History Household Members Other:: lives alone Housing: House Are you a primary career education teacher to a significant other at home: No Do you presently have visiting nurse or other home services: No Alcohol intake: current Alcohol intake frequency: holidays/special occasions only Alcohol type: beer Comment: counts correct Patient Tobacco Use Status: Current everyday Tobacco user Tobacco use type: Cigarette Cigarette Packs Per Day: 0.5 Cigarettes Per Day: 5 Years Smoked: 20, Started around age 16, 5-6 cigarettes a day e-Cigarette/Vaping Use: Never Used Second Hand Smoke Exposure: Yes service: No Current occupational status: employed 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 1. Little interest or pleasure in doing things: not at all 2. Feeling down, depressed, or hopeless: not at all 3. Trouble falling or staying asleep, or sleeping too much: not at all 4. Feeling tired or having little energy: several days 5. Poor appetite or overeating: not at all 6. Feeling bad about yourself - or that you are a failure or have let yourself or your family down: not at all 7. Trouble concentrating on things, such as reading the newspaper or watching television: not at all 8. Moving or speaking so slowly that other people could have noticed. Or the opposite - being so fidgety or restless that you have been moving around a lot more than usual: not at all 9. Thoughts that you would be better off or of hurting yourself in some way: not at all Total score: 1 Depression Screening Interpretation: Negative Depression Screening Done: Yes 97962 - PHQ-9 Billing: Yes Source: Developed by Drs. Omar Medley, Jessica Larson, Jacobo Polanco and colleagues, with an educational blanco from [employer]. Thrive Questionnaire Date Thrive assessed: 10/08/23 I am a: Patient What is your living situation today?: I have a steady place to live Within the past 12 months, did the food you bought not last and you didn't have the money to get more?: Often true Within the past 12 months, did you worry whether your food would run out before you got money to buy more?: Often true Do you have trouble paying for medicines?: No Do you have trouble getting transportation to medical appointments?: No Do you have trouble paying your heating and electricity bill?: Yes Do you have trouble taking care of your child, family member or friend?: No Do you have trouble with day-to-day activities such as bathing, preparing meals, shopping, managing finances, etc.?: No Are you currently unemployed and looking for a job?: No Are you interested in more education?: No Please select the resources that you would like help with: None Currently or been in a relationship where the following occur: I choose not to answer THRIVE Score: 3 AUDIT C Alcohol Use Questionnaire (AUDIT-C) 1. How often do you have a drink containing alcohol?: 2-4 times a month 2. How many drinks containing alcohol do you have on a typical day when you are drinking?: 1 or 2 3. How often do you have six or more drinks on one occasion?: Less than monthly Total Score: 3 Score Reviewed/Action Taken: No CHAS-7 AMB Questionnaire CHAS-7 Date CHAS - 7 assessed: 10/08/23 Feeling nervous, anxious, or on edge: 1 = Several days Not being able to stop or control worryin = Not at all Worrying too much about different things: 1 = Several days Trouble relaxin = Several days Being so restless that it is hard to sit still: 1 = Several days Becoming easily annoyed or irritable: 0 = Not at all Feeling afraid as if something awful might happen: 0 = Not at all Total CHAS-7 score (0-4 normal; 5-9 mild; 10-14 moderate; 15-21 severe): 4 Source: Developed by Drs. Omar Medley, Jessica Larson, Jacobo Polanco and colleagues, with an educational blanco from [employer]. CHAS-7 Assessment Billing CHAS-7 Assessment Tool: CHAS-7 Assessment 53020 Review of Systems Const All systems reviewed & are unremarkable except as noted in HPI and below Card Denies chest pain at rest, Denies chest pain with activity, Denies edema, Denies irregular heart rhythm, Denies claudication, Denies dyspnea, Denies dyspnea on exertion, Denies orthopnea, Denies paroxysmal nocturnal dyspnea and Denies slow heart rate Resp Denies cough, Denies dyspnea and Denies dyspnea on exertion GI Denies abdominal pain, Denies change in bowel habits, Denies excessive flatus, Denies nausea and Denies vomiting Denies urinary incontinence, Denies urinary hesitancy and Denies urinary urgency Musc Denies abnormal gait, Denies atrophy, Denies deformity and Denies limited range of motion Skin/Breast Denies bleeding lesions, Denies changing lesions and Denies rash Neuro Denies abnormal gait and Denies lack of coordination Physical exam (Primary Care) Vital Signs: Last Vital Signs Temp 97.3 F 01/18/25 15:26 Pulse 78 01/18/25 15:26 Resp 18 01/18/25 15:26 BP 132/78 01/18/25 15:26 Pulse Ox 98 01/18/25 15:26 Oxygen Delivery Method Room Air 01/18/25 15:26 BMI result Body Mass Index 26.1 Tobacco/Smoking Status: Tobacco use Status Tobacco use date assessed 10/08/23 01/18/25 15:28 Patient Tobacco Use Status Current everyday Tobacco 01/18/25 15:28 Tobacco use type Cigarette 01/18/25 15:28 e-Cigarette/Vaping Use Never Used 01/18/25 15:28 PHQ-9: PHQ-9 Score PHQ-9: Total score 1 01/18/25 15:50 Depression Screening Interpretation: Negative Thrive Assessment: Date of Thrive Assessment Date Thrive assessed 10/08/23 01/18/25 15:28 Currently or been in a relationship where the following occur: I choose not to answer HENMT Head: Yes normal to inspection, Yes normocephalic and Yes atraumatic Ears: external ears normal Eyes General: appearance normal, both eyes and all related structures Eyelids: Yes eyelids normal Conjunctivae: conjunctivae normal Neck Neck: Yes normal visual inspection and Yes supple Resp Effort & Inspection: normal respiratory effort Auscultation: clear to auscultation bilaterally Cardio Jugular venous distension: no JVD Rate: regular rate Rhythm: regular rhythm Heart sounds: S1 normal heart sound present and S2 normal heart sound present GI Inspection: Yes normal to inspection Palpation (GI): Soft to palpation and nontender Auscultation: normal bowel sounds Skin General skin exam: no rashes or lesions noted Neuro General: no focal motor deficits Extrem General: Yes full ROM Psych Appearance: grossly normal Coding Level of Care Code Est Pt Level 3 (53290) Est Pt Prev Care 40-64y(31227) Diagnoses Adult general medical exam Z00.00 Biliary dyskinesia K82.8 Additional Codes PHQ-9 - 59793 - PHQ-9 Billing: Yes ([id number]) CHAS-7 Assessment Billing - CHAS-7 Assessment Tool: CHAS-7 Assessment 09023 ([id number]) Time Spent (min) 32 Assessment & Plan Assessment & Plan (1) Adult general medical exam: Code(s): Z00.00 - Encounter for general adult medical examination without abnormal findings Category: Medical (2) Biliary dyskinesia: Code(s): K82.8 - Other specified diseases of gallbladder Category: Surgical Plan Plan 1. Physical exam Repeat in a year. Colonoscopy for 2033. 2. Postcholecystectomy Syndrome The patient has a history of chronic diarrhea following a cholecystectomy. A prescription powder will be sent to the pharmacy to help manage these symptoms. Dietary changes, such as consuming sauerkraut, were discussed as potentially beneficial. 3. Tobacco Use Disorder The patient is a current smoker, consuming about a third of a pack per day, with increased use when drinking alcohol. The patient expressed that quitting has been difficult. Orders: Orders Vitamin D 25-OH Total Today E55.9 - Vitamin D deficiency, unspecified Lipid Panel Today Z00.00 - Encounter for general adult medical examination without abnormal findings Comprehensive [place]. Panel Fast Today Z00.00 - Encounter for general adult medical examination without abnormal findings Medications: New cholestyramine (Cholestyramine Light) administer w/meal; avoid other meds within 1hr before or 4-6hr after dose 4 grams PO BID PRN 210 grams 1RF diarrhea 30 days Refilled omeprazole 20 mg PO DAILY 90 caps 3RF 90 days famotidine 20 mg PO BEDTIME 90 tabs 1RF K21.9 - Gastro-esophageal reflux disease without esophagitis cholecalciferol (vitamin D3) 25 mcg PO DAILY 90 caps 1RF 90 days simethicone 125 mg PO BID-QID PRN 120 caps 3RF abdominal distention K21.9 - Gastro-esophageal reflux disease without esophagitis loratadine (Allergy Relief (loratadine)) 10 mg PO DAILY 90 tabs 1RF 90 days
--- OUTSIDE RECORDS SUMMARY | 2025-01-18 19:00 | XMS_ITS | Clinical Summary ---
Author Organization [employer] Address [address] [place] [address] Care Team Providers Care Day Haul Or Farm Charter Bus Driver Name Role Phone Unavailable Primary Care Provider [...] of 2) 2018 COVID-19 Vaccine ( - 2024-2 6 season) 2024 Influenza Vaccine (#1) 2024 RSV [...]
--- OUTSIDE RECORDS SUMMARY | 2025-01-18 19:00 | XMS_ITS | Patient Health Record ---
Author Organization [facility] Address [address] [place] [id number] Care Team Providers Care Gutter Mouth Cutter Name Role Phone Omar Bates Unavailable [phone] Reason For Referral No Information Plan Of Treatment No Information
--- OUTSIDE RECORDS SUMMARY | 2025-01-18 19:00 | XMS_ITS | Encounter Summary ---
Author Organization [employer] Address [address] [facility] [address] [place] [address] Care Team Providers Care Senior Software Manager Name Role Phone Unavailable Primary Care Provider Unavailabl e Reason for Visit * Reason Onset Date Comments New Patient 11/20/2022 Encounter Details Date Type Department Care Team (Late st Contact Info) Description 11/20/2022 Telephone [facility] MEDICINE [address] [place] [address] Clement Mazariegos MD [address] [place] [address] New Patient Social History Tobacco Use Types [...] left voicemail to give a call at [phone]. documented in this encounter Plan of Treatment Not on file documented as of this encounter Visit Diagnoses Not on filedocumented in this encounter
== END 2025-01-18 16:08 | disposition home or self-care (01) ==
LOC: HO.HMCH 15:21
PROVIDERS: PCP Internal Medicine; Visit Provider Internal Medicine
DX: Z00.00 Encounter for general adult medical examination without abnormal findings (principal); K82.8 Other specified diseases of gallbladder

== ENCOUNTER → 2025-01-18 15:20 | Outpatient (BNVA) | payer OTHER, SELFPAY | PROVIDERS: PCP Internal Medicine; Visit Provider Internal Medicine | DX: Z00.00 Encounter for general adult medical examination without abnormal findings (principal); R19.7 Diarrhea, unspecified; E55.9 Vitamin D deficiency, unspecified; K91.5 Postcholecystectomy syndrome; K21.9 Gastro-esophageal reflux disease without esophagitis | CPT/HCPCS: 96127 ==

== ENCOUNTER 2025-02-07 16:00 | Outpatient (REF) | payer OTHER, SELFPAY ==
[2025-02-07 17:43] LABS: Appearance Urine Turbid; Glucose Urine UA Negative (Negative); PH 7.5 (5.0-9.0); Specific Gravity - Urine 1.020 (1.005-1.025); UMIC TRIGGER UACC YES
[2025-02-07 17:48] LABS: UACC Culture Trigger YES
--- OUTSIDE RECORDS SUMMARY | 2025-02-07 22:24 | XMS_ITS | Encounter Summary ---
Author Organization [employer] Address [address] [facility] [address] [place] [address] Care Team Providers Care Configuration Analyst Name Role Phone Unavailable Primary Care Provider Unavailabl e Reason for Visit * Reason Onset Date Comments New Patient 11/20/2022 Encounter Details Date Type Department Care Team (Late st Contact Info) Description 11/20/2022 Telephone [facility] MEDICINE [address] [place] [address] Clement Mazariegos MD [address] [place] [address] New Patient Social History Tobacco Use Types [...] left voicemail to give a call at [phone]. documented in this encounter Plan of Treatment Not on file documented as of this encounter Visit Diagnoses Not on filedocumented in this encounter
--- OUTSIDE RECORDS SUMMARY | 2025-02-07 22:24 | XMS_ITS | Clinical Summary ---
Author Organization [employer] Address [address] [facility] [address] [place] [address] Care Team Providers Care Inspector Scales Name Role Phone Unavailable Primary Care Provider [...]
--- OUTSIDE RECORDS SUMMARY | 2025-02-07 22:24 | XMS_ITS | Patient Health Record ---
Author Organization [facility] Address [address] [place] [id number] Care Team Providers Care Betting Clerks Name Role Phone Omar Bates Unavailable [phone] Reason For Referral No Information Plan Of Treatment No Information
== END 2025-02-07 16:01 | disposition home or self-care (01) ==
LOC: HO.LAB 16:00
PROVIDERS: PCP Internal Medicine; Visit Provider Internal Medicine
DX: R39.9 Unspecified symptoms and signs involving the genitourinary system (principal)
CPT/HCPCS: 81001; 87086

== ENCOUNTER 2025-02-23 07:11 | Outpatient (REF) | payer OTHER, SELFPAY ==
--- OUTSIDE RECORDS SUMMARY | 2025-02-23 07:12 | XMS_ITS | Clinical Summary ---
Author Organization [employer] Address [address] [facility] [address] [place] [address] Care Team Providers Care Mortgage Loan Processing Clerk Name Role Phone Unavailable Primary Care Provider [...]
--- OUTSIDE RECORDS SUMMARY | 2025-02-23 07:12 | XMS_ITS | Encounter Summary ---
Author Organization [employer] Address [address] [facility] [address] [facility] [address] [place] [address] Care Team Providers Care Bilingual Instructor Name Role Phone Unavailable Primary Care Provider Unavailabl e Reason for Visit * Reason Onset Date Comments New Patient 11/20/2022 Encounter Details Date Type Department Care Team (Late st Contact Info) Description 11/20/2022 Telephone [facility] MEDICINE [address] [place] [address] Clement Mazariegos MD [address] [place] [address] New Patient Social History Tobacco Use Types [...] left voicemail to give a call at [phone]. documented in this encounter Plan of Treatment Not on file documented as of this encounter Visit Diagnoses Not on filedocumented in this encounter
--- OUTSIDE RECORDS SUMMARY | 2025-02-23 07:13 | XMS_ITS | Patient Health Record ---
Author Organization [facility] Address [address] [place] [phone] Care Team Providers Care Press Loader Name Role Phone Omar Bates Unavailable [phone] Reason For Referral No Information Plan Of Treatment No Information
[2025-02-23 08:14] LABS: Alanine Aminotransferase 161 U/L (0-31); Albumin Level 4.8 g/dL (3.5-5.0); Alkaline Phosphatase 81 U/L (39-117); Anion Gap 15 (12-20); Aspartate Amino Transferase 111 U/L (5-31); Blood Urea Nitrogen 7 mg/dL (9-16); Calcium 9.3 mg/dL (8.4-10.2); Carbon Dioxide 30 mmol/L (22-29); Chloride 105 mmol/L (96-108); Cholesterol 218 mg/dL (<200); Estimated Glomerular Filt Rate > 60; HDL Cholesterol 43 mg/dL (>40); Potassium 3.7 mmol/L (3.3-5.1); Sodium 146 mmol/L (135-145); Total Protein 7.5 g/dL (6.5-8.0); Triglycerides 325 mg/dL (<150)
== END 2025-02-23 07:12 | disposition home or self-care (01) ==
LOC: HO.LAB 07:11
PROVIDERS: PCP Internal Medicine; Visit Provider Internal Medicine
DX: Z00.00 Encounter for general adult medical examination without abnormal findings (principal); E55.9 Vitamin D deficiency, unspecified; Z13.6 Encounter for screening for cardiovascular disorders
CPT/HCPCS: 36415; 80053; 80061; 82306